=== PATIENT | male | born 1945 | race Caucasian/White ===

== ENCOUNTER 2024-05-14 09:30 | Outpatient (RCR) | payer OTHER, SELFPAY ==
[2024-01-16 09:23] VITALS: PULSE 85
== END 2024-05-14 23:59 | disposition home or self-care (01) ==
LOC: ANHCPREHAB 09:30
DX: J84.9 Interstitial pulmonary disease, unspecified (principal)
CPT/HCPCS: 94625; G0239

== ENCOUNTER 2024-05-18 10:37 | Outpatient (RCR) | payer OTHER, SELFPAY ==
[2024-05-16 00:02] VITALS: PULSE 85
== END 2024-08-17 08:28 | disposition home or self-care (01) ==
LOC: ANHCPREHAB 10:37
DX: J84.9 Interstitial pulmonary disease, unspecified (principal)
CPT/HCPCS: G0239

== ENCOUNTER 2025-03-31 12:35 | Outpatient (CLI) | payer OTHER, SELFPAY ==
--- NOTE | 2025-03-31 | ECHO_ITS ---
Patient Info Name: Perico Batista Age: 79 years : 1945 Gender: Male Ht: 70 in Wt: 212 lbs BSA: 2.20 m2 HR: 76 bpm BP: 114 / 66 mmHg Technical Quality: Good Exam Date: 03/31/2025 1:16 PM Patient Status: O Admit Date: 03/31/2025 Exam Type: CA echo doppler color flow Complete two-dimensional, color flow and Doppler transthoracic echocardiogram is performed. Election Assistant: Kami Wild Summary 1. Complete two-dimensional, color flow and Doppler transthoracic echocardiogram is performed. 2. There is normal biventricular size and systolic function. 3. There are no significant valvular abnormalities. Left Ventricle The left ventricle is normal in size and systolic function. The left ventricular ejection fraction is visually estimated to be 60-65%. Right Ventricle The right ventricle is normal in size and systolic function. Left Atria The left atrium is normal size. Right Atria The right atrium is normal size. Atrial Septum The atrial septum is not well visualized. Aortic Valve The aortic valve opens well. There is no aortic regurgitation. Pulmonic Valve The pulmonic valve is not well visualized. There is trace pulmonic valve regurgitation. Mitral Valve The mitral valve opens well. There is trace mitral regurgitation. Tricuspid Valve The tricuspid valve opens well. There is mild tricuspid regurgitation. Pericardium/Pleural Pericardium is normal in appearance with no evidence for significant pericardial effusion. Inferior Vena Cava Inferior vena cava is not well visualized. Aorta The aortic root at the level of the sinus of Valsalva measures 3.0 cm in diameter. Left Ventricular Outflow Tract Name Value Normal LVOT 2D LVOT Diameter 2.1 cm LVOT Doppler LVOT Peak Velocity 70 cm/s LVOT Peak Gradient 2 mmHg LVOT Mean Gradient 1 mmHg LVOT VTI 17 cm LVOT VTI/AV VTI Ratio 0.6 LVOT Stroke Volume 60 ml LVOT CO 10.9 l/min LVOT CI 5.0 l/min/m2 Pulmonic Valve Name Value Normal PV Doppler PV Peak Velocity 90 cm/s PV Peak Gradient 3 mmHg Mitral Valve Name Value Normal MV Diastolic Function MV E Peak Velocity 55 cm/s MV A Peak Velocity 71 cm/s MV E/A 0.8 MV Decel Time (PW) 231 ms MV Annular TDI MV E/e' (Septal) 6.7 MV E/e' (Lateral) 7.0 MV E/e' (Average) 6.9 Tricuspid Valve Name Value Normal TV Regurgitation Doppler TR Peak Velocity 266 cm/s TR Peak Gradient 28 mmHg Estimated PAP/RSVP RA Pressure 10 mmHg <=5 PA Systolic Pressure 38 mmHg <36 RV Systolic Pressure 38 mmHg <36 TV Annular TDI TV Lateral Sofía s' Velocity 11.3 cm/s >=9.5 Aortic Valve Name Value Normal AV Doppler AV Peak Velocity 126 cm/s AV Peak Gradient 6 mmHg AV Mean Gradient 4 mmHg AV VTI 30 cm AV Area (Cont Eq VTI) 2.0 cm2 >=3.0 AV Area (Cont Eq Juan) 2.0 cm2 AV DI (Juan) 0.56 AV Regurgitation 2D LVOT Area 3.6 cm2 Ventricles Name Value Normal LV Dimensions 2D/MM IVS Diastolic Thickness (2D) 1.2 cm 0.6-1.0 LVID Diastole (2D) 4.0 cm 4.2-5.8 LVIW Diastolic Thickness (2D) 1.1 cm 0.6-1.0 LVID Systole (2D) 2.9 cm 2.5-4.0 LVOT Diameter 2.1 cm LV Mass (2D Cubed) 154.84 g 88.00-224.00 LV Mass Index (2D Cubed) 70 g/m2 49-115 Relative Wall Thickness (2D) 0.55 <=0.42 LV Fractional Shortening/Ejection Fraction 2D/MM LV Fractional Shortening (2D) 28 % 25-43 LV EF (2D Teichholz) 55 % LV Diastolic Volume (4C MOD) 94 ml LV EF (4C MOD) 56 % LV Diastolic Volume (2C MOD) 101 ml LV EF (2C MOD) 67 % LV Diastolic Volume (BP MOD) 101 ml 62-150 LV Diastolic Volume Index (BP MOD) 46 ml/m2 34-74 LV Systolic Volume (BP MOD) 38 ml 21-61 LV Systolic Volume Index (BP MOD) 17 ml/m2 11-31 LV EF (BP MOD) 62 % 52-72 LV Diastolic Length (4C) 7.9 cm LV Systolic Length (4C) 6.7 cm LV Stroke Volume (4C MOD) 53 ml RV Dimensions 2D/MM RVID Diastole (2D) 4.0 cm 2.1-3.5 Atria Name Value Normal LA Dimensions LA Volume (4C A-L) 57 ml LA Volume (BP A-L) 55 ml RA Dimensions RA Systolic Major [place] Length (4C) 4.6 cm 2.1-2.7 RA Area (4C) 14.1 cm2 <=18.0 Report Signatures
--- OUTSIDE RECORDS SUMMARY | 2025-03-31 13:05 | XMS_ITS | Encounter Summary ---
Author Organization [facility] Address [address] [facility] [place] [address] Care Team Providers Care Incubator Operator Name Role Phone Scottie Williamson MD Primary Care Provider + Encounter Details Date Type Department Care Team (Late st Contact Info) Description 08/17/2019 Lab Requisition [facility] [address] [facility] [place] [id number] Kat Luna MD [address] [facility] [address] [place] [address] Social History Tobacco Use Types Packs/Day Years Used Date Smoking Tobacco: Former Cigarettes 1.5 37 1 11/22/1964 - 09/22/2002 Smokeless Tobacco: Never Alcohol Use Standard Drinks/Week Comments Yes 1.7 (1 standard drink = 0.6 oz p ure alcohol) occ Sex and Gender Information Value Date Recorded Sex Assigned at Not on file 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 Gender Identity Not on file Sexual Orientation Not on file documented as of this encounter Plan of Treatment Not on file documented as of this encounter Procedures Procedure Name Priority Date/Time Associated Diagnosis Comments DERMATOPATHOLOGY Routine 08/17/2019 12:0 0 AM CDT documented in this encounter Results * DERMATOPATHOLOGY (08/17/2019 12:00 AM CDT) Case Report Dermatopathology Report Case: [id number] Authorizing Provider: Kat Luna MD Collected: 08/17/2019 12:00 AM Ordering Location: [facility] Lab Received: 08/17/2019 12:06 PM Pathologist: Tammy Rivas MD Specimen: Skin, right denominational 12:48 PM CDT DERMATOPATHOLOGY LABORATORY Final Diagnosis Specimen A. SKIN, right denominational: BASAL CELL CARCINOMA, INFILTRATIVE PATTERN ([id number]) 12:48 PM CDT DERMATOPATHOLOGY LABORATORY at 1248 CDT Clinical History R/O BCC, irritated. 12:48 PM CDT DERMATOPATHOLOGY LABORATORY Gross Description Specimen A: Received is one formalin filled container labeled with the patient's name and designated right denominational. The specimen consists of a shave measuring [id number]. Jar 0. 12:48 PM CDT DERMATOPATHOLOGY LABORATORY Microscopic Description Specimen A. SKIN, right denominational: Within the dermis there are nodular aggregates of basaloid cells associated with fibromyxoid stroma and epithelial-stromal clefts. At the advancing margin of the neoplasm, there are smaller angulated nests that infiltrate the dermis. 12:48 PM CDT DERMATOPATHOLOGY LABORATORY Disclaimer An external and internal positive and negative controls are appropriate for the histochemical, immunohistochemical and immunofluorescence stain(s) in this case (if any), except where stated explicitly. The performance characteristics of the stain(s) cited in this report were developed and its performance characteristic determined by the Dermatopathology Laboratory at [facility], directed by Dr. Dolores Strange. These tests need not be, and therefore are not, approved by the [place] Food and Drug Administration. The tests are used for clinical purposes. Billing Codes Specimen Charges Stain Charges 13260 1 12:48 PM CDT DERMATOPATHOLOGY LABORATORY Embedded Images 12:48 PM CDT DERMATOPATHOLOGY LABORATORY Pathology/Cytolog y TISSUE SPECIMEN FROM SKIN / Unknown 08/17/2019 08/17/2019 12:06 PM CDT us Kat Luna MD LAB - PATHOLOGY/CYTOLOGY OR DERABLES Final Result DERMATOPATHOLOGY LABORATORY [facility] - Department of Dermatology [address] [facility] Floor Lab [address] [phone] documented in this encounter Visit Diagnoses Not on filedocumented in this encounter Care Teams Incubator Operator Relationship Specialty Start Date End Date Scottie Williamson MD [address] [phone] PCP - General Internal Medicine 09/22/13 documented as of this encounter
--- OUTSIDE RECORDS SUMMARY | 2025-03-31 13:05 | XMS_ITS | Encounter Summary ---
Author Organization [facility] Address [address] [place] [address] Phone Care Team Providers Care Media Relations Coordinator Name Role Phone Scottie Williamson MD Primary Care Provider Emily Blue MD Unavailable Kat Luna MD Unavailable [phone] Jose Diaz MD Unavailable [phone] Valente Torres MD Unavailable [phone] Heather Avila RN Unavailable Unavailable Thelma Brown MD Unavailable [phone] Encounter Details Date Type Department Care Team (Latest Contact Info) Description 12/09/2019 Orders Only [facility] Scanning, Provider Social History Tobacco Use Types Packs/Day Years Used Date Smoking Tobacco: Former Smokeless Tobacco: Never Sex and Gender Information Value Date Recorded Sex Assigned at Not on file 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 Gender Identity Not on file Sexual Orientation Straight 12/31/2019 9: 09 AM DIRECTOR COST documented as of this encounter Plan of Treatment Not on file documented as of this encounter Procedures Procedure Name Priority Date/Time Associated Diagnosis Comments SCAN - LABS 12/09/2019 documented in this encounter Results * SCAN - LABS (12/09/2019) us Provider Scanning Final Result documented in this encounter Visit Diagnoses Not on filedocumented in this encounter Additional Health Concerns Infection Onset Date Last Indicated Resolved Time COVID: Suspected 07/02/2024 07/02/2024 07/02/2024 12:21 PM CDT Rhino/Enterovirus 07/02/2024 07/02/2024 07/09/2024 3:05 AM CDT documented as of this encounter Care Teams Media Relations Coordinator Relationship Specialty Start Date End Date Scottie Williamson MD [address] [facility] [address] [place] [address] PCP - General Internal Medicine 03/03/19 Emily Blue MD [address] [place] [address] Fellow Pulmonary Disease 10/16/21 Kat Luna MD [address] [place] [address] Referring Physician Dermatology 10/16/21 Jose Diaz MD [address] [place] [address] Referring Physician Pulmonary Disease 10/16/21 Valente Torres MD [address] [facility] DEPT OTOLARYNGOLOGY, [address] [address] Referring Physician Otolaryngology 02/07/22 Heather Avila, RN Registered Nurse 05/02/22 02/03/25 Thelma Brown MD Medical Oncologist/Buttoner Medical Oncology 01/14/23 documented as of this encounter
--- OUTSIDE RECORDS SUMMARY | 2025-03-31 13:05 | XMS_ITS | Encounter Summary ---
Author Organization [facility] Address [address] [place] [address] Phone Care Team Providers Care Cath Laboratory Technician Name Role Phone Scottie Williamson MD Primary Care Provider Emily Blue MD Unavailable Kat Luna MD Unavailable [phone] Jose Diaz MD Unavailable [phone] Valente Torres MD Unavailable [phone] Heather Avila RN Unavailable Unavailable Thelma Brown MD Unavailable [phone] Encounter Details Date Type Department Care Team (Late st Contact Info) Description 07/17/2022 Orders Only [facility] [address] [facility] 11[address] [place] [address] [place] [address] Valente Torres MD [address] [place], [place] [id number] Thyroid nodule (Primary Dx) Social History Tobacco Use Types Packs/Day Years Used Date Smoking Tobacco: Former Cigarettes 1 44 1 963 - 2007 Smokeless Tobacco: Never AUDIT-C Answer Date Recorded Q1: How often do you have a drink containing alc ohol? Never 11/29/2021 Q2: How many drinks containi ng alcohol do you have on a typical day when you are drinking? 1 or 2 11/29/2021 Q3: How often do you have six or more drinks on one occasion? 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 Gender Identity Not on file Sexual Orientation Straight 12/31/2019 9: 09 AM PHOTOGRAPHIC PLATEMAKER documented as of this encounter Plan of Treatment Not on file documented as of this encounter Visit Diagnoses Diagnosis Thyroid nodule- Primary Nontoxic uninodular goiter documented in this encounter Additional Health Concerns Infection Onset Date Last Indicated Resolved Time COVID: Suspected 07/02/2024 07/02/2024 07/02/2024 12:21 PM CDT Rhino/Enterovirus 07/02/2024 07/02/2024 07/09/2024 3:05 AM CDT documented as of this encounter Care Teams Cath Laboratory Technician Relationship Specialty Start Date End Date Scottie Williamson MD [address] [address] PCP - General Internal Medicine 03/03/19 Emily Blue MD [address] [place] [address] Fellow Pulmonary Disease 10/16/21 Kat Luna MD [address] [place] [address] Referring Physician Dermatology 10/16/21 Jose Diaz MD [address] [place] [address] Referring Physician Pulmonary Disease 10/16/21 Valente Torres MD [address] [facility] DEPT OTOLARYNGOLOGY, [address] [address] Referring Physician Otolaryngology 02/07/22 Heather Avlia, RN Registered Nurse 05/02/22 02/03/25 Thelma Brown MD Medical Oncologist/Director Of Early Childhood Education Medical Oncology 01/14/23 documented as of this encounter
--- OUTSIDE RECORDS SUMMARY | 2025-03-31 13:05 | XMS_ITS | Referral Summary ---
Author Organization [facility] Address [address] [place] [address] Care Team Providers Care Licensed Psychologist Name Role Phone Scottie Williamson MD Primary Care Provider Emily Blue MD Unavailable [phone] Kat Luna MD Unavailable [phone] Jose Diaz MD Unavailable [phone] Valente Torres MD Unavailable Thelma Brown MD Unavailable Encounters Date Type Department Care Team Description 03/29/2025 Telephone [facility] Pulmonary [address] [facility] 8th [place] [address] [place] [address] Jane Garcias RN 03/29/2025 Results Follow-Up Pulmonology Jose Diaz MD CT Chest PE (CTA) and Chest High Resolution W Contrast 03/25/2025 3:15 PM CDT - 03/25/2025 11:59 PM CDT Hospital Encounter [facility] Radiology [facility]) [address] [place] [address] Jose Diaz MD ILD (interstitial lung disease) (HCC); NSIP (nonspecific interstitial pneumonia) (HCC); Shortness of breath Discharge Disposition: Discharge to home or self care 03/25/2025 2:44 PM CDT - 03/25/2025 11:59 PM CDT Hospital Encounter [facility] Pul[facility] [address] [facility] [address] [place] [address] ILD (interstitial lung disease) (HCC); NSIP (nonspecific interstitial pneumonia) (HCC); Shortness of breath Discharge Disposition: Discharge to home or self care 03/24/2025 Telephone [facility] Pul[facility] [address] [facility] 8th [place] [address] [place] [address] Jane Garcias RN 03/01/2025 Telephone [facility] [address] [facility] 8th [place] [address] [place] [address] Huyen Crooks CMA 02/28/2025 9:00 AM CDT Procedure visit [facility] Otolaryngology [address] [place] [phone] Christina Romna Au.D. Sensorineural hearing loss (SNHL), bilateral (Primary Dx) 02/28/2025 8:30 AM CDT Procedure visit [facility] Otolaryngology [address] [place] [phone] Christina Roman Au.D. Sensorineural hearing loss (SNHL), bilateral (Primary Dx) 02/24/2025 Telephone [facility] [address] [place] [address] [place] [address] Jane Garcias RN 02/03/2025 9:15 AM CDT Lab [facility] - Lab Collection [address] [place] [address] 6 [place] [address] Extranodal marginal zone B-cell lymphoma 02/03/2025 10:00 AM CDT Office Visit [facility] Oncology [address] [facility] Floor 6 [place] [address] Marian Messina NP Extranodal marginal zone B-cell lymphoma (Primary Dx) 01/21/2025 Telephone [facility] Pulmonary [address] [facility] 8th [place] [address] [place] [address] Huyen Crooks CMA 01/21/2025 9:45 AM CDT Office Visit [facility] [address] [facility] [address]th [place] [address] [place] [address] Robby Ontiveros MD ILD (interstitial lung disease) (HCC) (Primary Dx); High risk medication use; Physical deconditioning 01/21/2025 8:50 AM CDT - 01/21/2025 11:59 PM CDT Hospital Encounter [facility] [address] [facility] [address] [place] [address] ILD (interstitial lung disease) (HCC); NSIP (nonspecific interstitial pneumonia) (HCC); Gastroesophageal reflux disease without esophagitis; Acute cough Discharge Disposition: Discharge to home or self care 01/07/2025 Telephone [facility] [address] [facility] 8th [place] [address] [place] [address] Jane Garcias RN R/S Appt 01/03/2025 10:15 AM CDT Lab [facility] - Lab Collection [address] [place] [address] Floor 6 [place] [address] 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) 01/03/2025 10:00 AM CDT Lab [facility] Lab [address] [place] [address] Floor 6 [place] [address] 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) 01/03/2025 11:00 AM CDT Office Visit [facility] On[facility] [address] [place] [address] Floor 6 [place] [address] Curly Panda MD 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) 01/03/2025 9:00 AM CDT - 01/03/2025 11:59 PM CDT Hospital Encounter [facility] - CT [address] [facility] [address] [place] [address] 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) Discharge Disposition: Discharge to home or self care 01/03/2025 8:45 AM CDT - 01/03/2025 11:59 PM CDT Hospital Encounter [facility] - CT [address] [facility] [address] [place] [address] 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) Discharge Disposition: Discharge to home or self care from Last 3 Months Allergies No known active allergies Medications multivitamin (MULTIPLE VITAMINS DAILY ORAL) Take 1 tablet by mouth every morning Active aspirin 81 mg enteric coated tablet Take 1 tablet (81 mg total) by mouth every morning 30 tablet 11 2 Active NIFEdipine CC 60 mg 24 hr tablet Take 30 mg by mouth 2 (two) times a day 2 Active famotidine (PEPCID) 20 mg tablet TAKE 1 TABLET BY MOUTH TWICE A DAY 180 tablet 3 4 Active predniSONE (DELTASONE) 5 mg tablet Take 1 tablet (5 mg) by mouth daily 90 tablet 3 4 Active meloxicam (MOBIC) 15 mg tablet Take 1 tablet (15 mg total) by mouth daily 5 Active respiratory syncytial virus vaccine (Arexvy, PF,) 120 mcg/0.5 mL vaccine Inject 0.5 mL into the muscle as instructed 5 Active Active Problems Problem Noted Date Diagnosed Date 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 Immunocompromised 03/01/2022 Anemia 12/25/2021 Chronic pain 11/30/2021 Assessment & Plan (11/30/2021 7:35 AM PERSONNEL ANALYST): - takes oxy at home - pain following to help with acute pain issues Nausea 11/30/2021 Assessment & Plan (12/03/2021 7:22 AM PERSONNEL ANALYST): - improved - 2/6 KUB consistent w post op ileus, now resolved - prn antiemetics - scheduled miralax - protonix BID - azathiopine IV - maalox - continue POPM - OOB - advance diet to regular Lung mass 11/29/2021 Mass of lower lobe of left lung 11/08/2021 Assessment & Plan (12/03/2021 7:21 AM PERSONNEL ANALYST): Left thoracotomy, lysis of adhesions, and left lower lobe diagnostic wedge resection - chest tubes all out - pain control with POPM - OOB with PT Consolidation of left lower lobe of lung 021 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 Overview (10/12/2021): Added automatically from request for surgery [id number] Raynaud's disease 10/12/2021 Benign paroxysmal positional vertigo 10/12/2021 High risk medication use 10/09/2020 Basal cell carcinoma (BCC) of right advent regio n 09/08/2019 NSIP (nonspecific interstitial pneumonia) 2018 SOB (shortness of breath) 08/27/2019 Other fatigue 08/27/2019 Encounter for removal of sutures 03/31/2019 Stopped smoking with greater than 40 pack year h istory 08/18/2018 Pleural effusion 08/18/2018 Gastroesophageal reflux disease without esophagi tis 08/18/2018 Atherosclerosis of aorta 06/01/2017 Skin neoplasm 07/20/2015 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 - sees pulmonary medicince - on room air now - resume home medications as indicated Immunizations Immunization Administration Dates Next Due COVID-19 MRNA (Playroom) .25 ML (25 MCG) VACCINE (6 MOS- 11 YRS) 01/07/2024 COVID-19 mRNA (3Touch) 0.3 m L (30 mcg) vaccine (12 years and up) 08/27/2024,07/26/2023 Influenza, Quadrivalent, Hig h Dose, Preservative Free, Intrr 07/31/2021,07/10/2021,06/16/2020 Influenza, Quadrivalent, Rec ombinant, Egg Free, Preservative Free, Intramuscular 07/10/2023 Influenza, Quadrivalent, Spl it, Intramuscular 08/08/2017 Influenza, Trivalent, Adjuva nted, Intramuscular 08/27/2024 Influenza, Trivalent, High D ose, Split, Preservative Free, Intramuscular 07/11/2020,08/19/2019,08/13/2018,06/29,06/28/2018 Influenza, Trivalent, IM (MDV) 08/03/2014,2011,10/29/2006 Influenza, Unspecified 08/27/2024,2020,06/16/2020,08/19,08/13/2018,06/29/2018,08/02/2016 ,08/15/2015,07/14/2013,07/25/2011 Pfizer SARS-CoV-2 Monovalent Vaccination (12+ Yrs) PURPLE 12/25/2021,12/19/2020,11/24/2020 Pneumococcal Conjugate PCV 13 05/23/2017 Pneumococcal Polysaccharide PPV23 07/14/2013 RSV Vaccine, Pref, Recombina nt, Subunit, Adjuvanted, PF, IM (Arexvy) 09/26/2024 Tdap 07/25/2011 ZOSTER LIVE 04/13/2012 ZOSTER Recombinant 08/31/2018,06/23/2018 Zoster, unspecified 06/23/2018 Social History Tobacco Use Types Packs/Day Years Used Date Smoking Tobacco: Former Cigarettes 1 44 1 963 - 2007 Smokeless Tobacco: Never Tobacco Cessation:Counseling Given: Not Answered AUDIT-C Answer Date Recorded Q1: How often [...] on file Legal Sex Male 12:18 AM PERSONNEL ANALYST Gender Identity Not on file Sexual Orientation Straight 12/31/2019 9: 09 AM PERSONNEL ANALYST Last Filed Vital Signs Vital Sign Reading Time Taken Comments Blood Pressure 110/69 02/03/2025 9:38 AM CDT Pulse 85 02/03/2025 9:38 AM CDT Temperature 36.6 C (97.8 F) 02/03/2025 9:38 AM CDT Respiratory Rate 18 02/03/2025 9:38 AM CDT Oxygen Saturation 95% 02/03/2025 9:38 AM CDT Inhaled Oxygen Concentration - - Weight 94.9 kg (209 lb 3.2 oz) 02/03/2025 9:38 A M CDT Height 176.5 cm (5' 9.5) 01/21/2025 9:21 AM CDT Body Mass Index 30.45 01/21/2025 9:21 AM CDT Plan of Treatment Not on file Procedures Procedure Name Priority Date/Time Associated Diagnosis Comments CT CHEST PE AND CHEST HIGH RESOLUTION W CONTRAST Routine 03/25/2025 4:12 PM CDT ILD (interstitial lung disease) (HCC) NSIP (nonspecific interstitial pneumonia) (HCC) Shortness of breath PULMONARY FUNCTION TEST (PFT) Routine 03/25/2025 3:12 PM CDT ILD (interstitial lung disease) (HCC) NSIP (nonspecific interstitial pneumonia) (HCC) Shortness of breath EGFR Routine 02/03/2025 9:15 AM CDT Extranodal marginal zone B-cell lymphoma DIFFERENTIAL AUTO Routine 02/03/2025 9:1 5 AM CDT Extranodal marginal zone B-cell lymphoma IGG Routine 02/03/2025 9:15 AM CDT Extranodal marginal zone B-cell lymphoma IGA Routine 02/03/2025 9:15 AM CDT Extranodal marginal zone B-cell lymphoma IGM Routine 02/03/2025 9:15 AM CDT Extranodal marginal zone B-cell lymphoma PROTEIN ELECTROPHORESIS, WITH REFLEX, SERUM Routine 02/03/2025 9:15 AM CDT Extranodal marginal zone B-cell lymphoma CBC WITH AUTO DIFFERENTIAL Routine 02/03/2025 9:15 AM CDT Extranodal marginal zone B-cell lymphoma COMPREHENSIVE METABOLIC PANEL Routine 02/03/2025 9:15 AM CDT Extranodal marginal zone B-cell lymphoma LACTATE DEHYDROGENASE Routine 02/03/2025 9:15 AM CDT Extranodal marginal zone B-cell lymphoma PULMONARY FUNCTION TEST (PFT) Routine 01/21/2025 9:15 AM CDT ILD (interstitial lung disease) (HCC) NSIP (nonspecific interstitial pneumonia) (HCC) Gastroesophageal reflux disease without esophagitis Acute cough EGFR Routine 01/03/2025 9:49 AM CDT 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) DIFFERENTIAL AUTO Routine 01/03/2025 9:4 9 AM CDT 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) CBC WITH AUTO DIFFERENTIAL Routine 01/03/2025 9:49 AM CDT 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) COMPREHENSIVE METABOLIC PANEL Routine 01/03/2025 9:49 AM CDT 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) LACTATE DEHYDROGENASE Routine 01/03/2025 9:49 AM CDT 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) CT SOFT TISSUE NECK W CONTRAST Schedule Routine, Read Routine (OP Routine) 01/03/2025 9:25 AM CDT 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 No pulmonary embolism. 2. Stable findings of interstitial lung disease in a nonspecific interstitial pneumonia pattern. Dictated by: Alex Bundy MD The radiology attending physician has personally reviewed this study, and had reviewed and/or edited this written report and agrees with it. Electronically signed by: Eugene Soler M.D. 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 TECHNIQUE: Computed tomographic images were acquired using a chest angiographic protocol optimized for pulmonary embolism. Contrast enhanced transaxial images were obtained following the intravenous administration of 93 ml of nonionic contrast. Multiplanar reformatted images and three-dimensional images were obtained on the 3-D workstation and sent to the PACS archival system. COMPARISON: 01/03/2025 and 06/21/2023 FINDINGS: No axillary, supraclavicular lymphadenopathy. There are multiple mediastinal lymph nodes appear unchanged and are within normal limits for size. For example a 8 mm low right paratracheal lymph node. Normal heart size. Small pericardial effusion. Normal caliber thoracic aorta and main pulmonary artery. Coronary artery calcifications. There is decreased amount of mucus in the left mainstem bronchus. There is a staple line from prior left lower lobe wedge resection. No significant change in lower lung peripheral and basilar predominant groundglass, mild reticulation, and minimal bronchiectasis. There is no significant air trapping. No suspicious pulmonary nodules. No pleural effusion or pneumothorax. Unremarkable appearance of the imaged portions of the liver, gallbladder, pancreas, spleen, bilateral adrenal glands, small and large bowel. Multiple old left posterior rib fracture deformities. Old left clavicle fracture. No suspicious osseous lesions. 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 TECHNIQUE: Computed tomographic images were acquired using a chest angiographic protocol optimized for pulmonary embolism. Contrast enhanced transaxial images were obtained following the intravenous administration of 93 ml of nonionic contrast. Multiplanar reformatted images and three-dimensional images were obtained on the 3-D workstation and sent to the PACS archival system. COMPARISON: 01/03/2025 and 06/21/2023 FINDINGS: No axillary, supraclavicular lymphadenopathy. There are multiple mediastinal lymph nodes appear unchanged and are within normal limits for size. For example a 8 mm low right paratracheal lymph node. Normal heart size. Small pericardial effusion. Normal caliber thoracic aorta and main pulmonary artery. Coronary artery calcifications. There is decreased amount of mucus in the left mainstem bronchus. There is a staple line from prior left lower lobe wedge resection. No significant change in lower lung peripheral and basilar predominant groundglass, mild reticulation, and minimal bronchiectasis. There is no significant air trapping. No suspicious pulmonary nodules. No pleural effusion or pneumothorax. Unremarkable appearance of the imaged portions of the liver, gallbladder, pancreas, spleen, bilateral adrenal glands, small and large bowel. Multiple old left posterior rib fracture deformities. Old left clavicle fracture. No suspicious osseous lesions. IMPRESSION: 1. No pulmonary embolism. 2. Stable findings of interstitial lung disease in a nonspecific interstitial pneumonia pattern. Dictated by: Alex Bundy MD The radiology attending physician has personally reviewed this study, and had reviewed and/or edited this written report and agrees with it. Electronically signed by: Eugene Soler M.D. Jose Diaz MD [facility] [place] PROCEDURES Final Result * Pulmonary Function Test - (03/25/2025 3:12 PM CDT) FVC PRE 2.43 L [facility] FVC %PRE PRED 64 % [facility] FEV1 PRE 1.86 L [facility] FEV1 %PRE PRED 66 % [facility] FEV1/FVC PRE 76.5 % [facility] Anatomical Region Laterality Modality PFT 03/25/2025 2:57 PM CDT Narrative 03/28/2025 9:19 AM CDT Table formatting from the original result was not included. [facility] Division of Pulmonary & Critical Care Medicine [address] [place] [address]; [place] [address]; [place] [address]; [phone] Pulmonary Function Laboratory Pulmonary Stress Test Simple/Oxygen Assessment Patient: Perico Batista Date: 03/25/2025 : 1945 Ht: 69.5 IN Wt: 211 LBS Time (min) Distance (ft)/ Corley O2 L/M SpO2 HR Elisabeth* BP FEV1 % Pred Rest: RA 99 97 0 136/68 1.86 66 % Walk/Bike: 1 RA 99 110 0 2 RA 94 113 2 3 RA 93 117 2 4 RA 92 121 2 5 RA 91 122 2 6 min 0 sec RA 90 121 2 Recovery: 1 RA 98 114 0 145/69 1.92 69% 3 RA 97 110 0 *Elisabeth rate of perceived exertion (1-10 dyspnea scale) Ayo, CHEST 2003; 123:1408 Walk Test Summary: Six Minute Walk Distance: 1350 ft Six-minute Walk Work [distance (m) x body wt (kg)]: 12900 kg.m (normal >60,000kg.m) Oxygen required to maintain SpO2 greater than 90% during six minutes of walkin L/M Comments: Interpretation: Breathing room air, SpO2 is normal at rest and during exercise sufficient to increase pulse, SpO2 falls but remains normoxemic . On this basis, SpO2 is adequate at rest breathing room air and while walking breathing room air. This level of exercise is associated with no significant change of FEV1. By signing this report, the attending pulmonary physician certifies that he/she has personally reviewed and interpreted the graphic and numerical data associated with this pulmonary function study and has reviewed and /or edited a preliminary draft report and agrees with the written final report. PFT performed at:[place] [place] [facility]- [id number] Procedure:->Oxygen Assessment Titration Pulmonary Function Test Interpretation SPIROMETRY: The FEV1 and FVC are reduced in a pattern suggestive of a restrictive abnormality. The inspiratory loop is appropriate for the expiratory flow abnormality. Impression: There is a moderate restrictive ventilatory defect. However, measurement of lung volumes is suggested to confirm this if clinically indicated. Compared with most recent study, there has been no significant interval change. The attending pulmonary physician certifies a physician presence in the [facility] Suite during the administration of aerosolized bronchodilator. The attending pulmonary physician certifies that he/she has reviewed and interpreted the graphic and numerical data of this pulmonary function study and agrees with the written final report. The lower limit of normal for PaO2 and %HbO2 is age dependent. However, the [facility] Function Laboratory defines hypoxemia as a PaO2 <56 mm Hg or a %HbO2 <89%. Starting on October of 2024 the [facility] Pul[facility] Function Laboratory utilizes race neutral GLI Global normative equations. Jose Diaz MD PFT ORDERABLES Final Result * eGFR (02/03/2025 9:15 AM CDT) eGFR 74 >=60 mL/min/1. 73 m2 Comment: Interpretive Data Reference Interval Normal >/= 90 mL/min/1.73m2 Mildly decreased* 60 - 89 mL/min/1.73m2 Mildly to moderately decreased 45 - 59 mL/min/1.73m2 Moderately to severely decreased 30 - 44 mL/min/1.73m2 Severely decreased 15 - 29 mL/min/1.73m2 Kidney Failure < 15 mL/min/1.73m2 *Relative to young adult level Estimated glomerular filtration rate is determined by the 2020 CKD-EPI equation recommended by the National Kidney Foundation (A Unifying Approach to GFR Estimation: Recommendations of the NKF-ASK Task Force on Reassessing the Inclusion of Race in Diagnosing Kidney Disease, JASN 2020). The CKD-EPI equation should not be used for patients with unstable renal function and has not been validated in children and those over 70. Current interpretive data was last reviewed 2021. Blood 02/03/2025 9:15 AM CDT 02/03/2025 9:35 AM CDT Thelma Brown MD LAB BLOOD ORDERABLES Final Re sult [facility] Department [place] [address] * (ABNORMAL) Differential, auto (02/03/2025 9:15 AM CDT) Neutrophil abs 5.88 1.50 - 6.50 K/cumm Comment:Testing performed by : [facility]e [facility], [address] [place] [phone] Lymphocyte abs 1.37 0.80 - 3.30 K/cumm [facility] Comment:Testing performed by : [facility], [address] [place] [phone] Monocyte abs 1.22(H) 0.20 - 0.80 K/cumm [facility] Comment:Testing performed by : [facility], [address] [place] [phone] Eosinophil abs 0.14 0.00 - 0.50 K/cumm [facility] Comment:Testing performed by : [facility], [address] [place] [phone] Basophil abs 0.06 0.00 - 0.10 K/cumm [facility] Comment:Testing performed by : [facility], [address] [place] [phone] Neutrophil pct 67.9 % [facility] Comment: Interpretive Data Percent cell count reference ranges are not reported, since discordance with absolute values may lead to misinterpretation of CBC data. Current Interpretive Data was last revised on 2018. Testing performed by: [facility], [address] [place] [phone] Lymphocyte pct 15.8 % [facility] Comment: Interpretive Data Percent cell count reference ranges are not reported, since discordance with absolute values may lead to misinterpretation of CBC data. Current Interpretive Data was last revised on 2018. Testing performed by: [facility], [address] [place] [phone] Monocyte pct 14.0 % [facility] Comment: Interpretive Data Percent cell count reference ranges are not reported, since discordance with absolute values may lead to misinterpretation of CBC data. Current Interpretive Data was last revised on 2018. Testing performed by: [facility], [address] [place], [place] [phone] Eosinophil pct 1.7 % [facility] Comment: Interpretive Data Percent cell count reference ranges are not reported, since discordance with absolute values may lead to misinterpretation of CBC data. Current Interpretive Data was last revised on 2018. Testing performed by: [facility], [address] [place], [place] [phone] Basophil pct 0.7 % [facility] Comment: Interpretive Data Percent cell count reference ranges are not reported, since discordance with absolute values may lead to misinterpretation of CBC data. Current Interpretive Data was last revised on 2018. Testing performed by: [facility], [address] [place] [address] Blood 02/03/2025 9:15 AM CDT 02/03/2025 9:30 AM CDT us Thelma Brown MD LAB BLOOD ORDERABLES Final Re sult [facility] Department [place] [address] * CBC with auto differential (02/03/2025 9:15 AM CDT) WBC 8.66 3.80 - 9.90 K/cumm Comment:Testing performed by : [facility], [address] [place] [address] Hgb 15.2 13.0 - 17.5 g/dL [facility]IA [facility] Comment:Testing performed by : [facility], [address] [place] [address] Hct 45.4 38.9 - 50.3 % EUGENIA LOCK Comment:Testing performed by : [facility], [address] [place] [address] Plt 302 150 - 400 K/cumm EUGENIA LOCK Comment:Testing performed by : [facility], [address] [place], [place] [phone] MPV 7.6 6.8 - 10.4 fL EUGENIA LOCK Comment:Testing performed by : [facility], [address] [place], [place] [phone] RBC 4.99 4.30 - 5.80 M/cumm EUGENIA [facility]OCK Comment:Testing performed by : [facility], [address] [place], [place] [phone] MCV 90.9 81.3 - 96.4 fL [facility] Comment:Testing performed by : [facility], [address] [place], [place] [id number] MCH 30.5 27.1 - 33.3 pg [facility] Comment:Testing performed by : [facility], [address] [place], [place] [id number] MCHC 33.6 32.3 - 35.7 g/dL [facility] Comment:Testing performed by : [facility], [address] [place] [address] RDW CV 14.3 11.1 - 14.9 % [facility] Comment:Testing performed by : [facility], [address] [place] [address] NRBC abs 0.00 0.00 - 0.01 K/cumm [facility] Comment:Testing performed by : [facility], [address] [place] [address] Blood 02/03/2025 9:15 AM CDT 02/03/2025 9:30 AM CDT us Thelma Brown MD LAB BLOOD ORDERABLES Final Re sult [facility] Department [place] [address] * (ABNORMAL) Protein electrophoresis with reflex, serum with interpretation (02/03/2025 9:15 AM CDT) Pathologist [facility] [place] Protein, sr 7.2 6.2 - 8.2 g/dL Albumin 4.1 3.2 - 5.0 g/dL [facility] Alpha-1 globulin 0.3 0.2 - 0.4 g/dL [facility] Alpha-2 globulin 0.7 0.5 - 1.0 g/dL [facility] Beta-1 globulin 0.5 0.3 - 0.6 g/dL [facility] Beta-2 globulin 0.4 0.2 - 0.6 g/dL [facility] Gamma globulin 1.2 0.5 - 1.7 g/dL [facility] Rstr Pk Gamma 0.3(H) 0.0 - 0.0 g/dL [facility] SPEP interp Please see comment [facility] Comment: Abnormal restricted peak in Gamma region Electrophoretic pattern appears similar to previous sample 01/30/2024 Reviewed and signed by Chase Mason MD, PhD 02/04/2025 Blood 02/03/2025 9:15 AM CDT 02/03/2025 10:35 AM CDT Thelma Brown MD LAB BLOOD ORDERABLES Final Re sult Performing Organization Address City/[facility]/ZIP Co de Phone Number [facility] [place] [address] * Lactate dehydrogenase (LD) (02/03/2025 9:15 AM CDT) [facility] Lactate dehydrogenase (LDH) 149 100 - 250 Units/L Blood 02/03/2025 9:15 AM CDT 02/03/2025 9:35 AM CDT Thelma Brown MD LAB BLOOD ORDERABLES Final Re sult [facility] [place] [address] * IgA (02/03/2025 9:15 AM CDT) [facility] Immunoglobulin A 270 70 - 400 mg/dL Blood 02/03/2025 9:15 AM CDT 02/03/2025 9:51 AM CDT Thelma Brown MD LAB BLOOD ORDERABLES Final Re sult Performing Organization Address [facility] Co de Phone Number [facility] [place] [address] * (ABNORMAL) IgM (02/03/2025 9:15 AM CDT) Pathologist [facility] Immunoglobulin M 314(H) 40 - 230 mg/dL Blood 02/03/2025 9:15 AM CDT 02/03/2025 9:51 AM CDT Thelma Brown MD LAB BLOOD ORDERABLES Final Re sult Performing Organization Address [facility] de Phone Number [facility] Department [place] [address] * IgG (02/03/2025 9:15 AM CDT) [facility] Immunoglobulin G 1,213 700 - 1,600 mg/dL Blood 02/03/2025 9:15 AM CDT 02/03/2025 9:51 AM CDT Thelma Brown MD LAB BLOOD ORDERABLES Final Re sult Performing Organization Address [facility] de Phone Number [facility] [place] [address] * Comprehensive metabolic panel (02/03/2025 9:15 AM CDT) [facility] Sodium 142 135 - 145 mmol/L Potassium, pl 4.4 3.3 - 4.9 mmol/L [facility] Chloride 104 97 - 110 mmol/L [facility] CO2 30 22 - 32 mmol/L [facility] Anion gap 8 2 - 15 mmol/L [facility] BUN 16 6 - 25 mg/dL [facility] Creatinine 1.03 0.80 - 1.30 mg/dL [facility] Glucose 95 70 - 199 mg/dL [facility] Comment: Interpretive Data Fasting glucose >/= 126 mg/dl is diagnostic for diabetes. Fasting is defined as no caloric intake for at least 8 hours. Fasting glucose between 100 mg/dl to 125 mg/dl is diagnostic of prediabetes. In a patient with classic symptoms of hyperglycemia or hyperglycemic crisis, a random glucose >/= 200 mg/dl is diagnostic for diabetes. In the absence of unequivocal hyperglycemia, results should be confirmed by repeat testing. The classification and Diagnosis of Diabetes Diabetes Care 202; 46: S19-S40. Current interpretive data was last revised 2022. Calcium 9.6 8.5 - 10.3 mg/dL [facility] Bilirubin, total 0.5 0.1 - 1.2 mg/dL [facility] Protein, pl 7.6 6.5 - 8.5 g/dL [facility] Albumin 4.1 3.5 - 5.0 g/dL [facility] Alk phos 71 40 - 130 Units/L [facility] ALT 13 7 - 55 Units/L [facility] AST 21 10 - 50 Units/L [facility] Blood 02/03/2025 9:15 AM CDT 02/03/2025 9:35 AM CDT Thelma Brown MD LAB BLOOD ORDERABLES Final Re sult [facility] Department [place] [address] * Pulmonary Function Test - (01/21/2025 9:15 AM CDT) FVC PRE 2.[address] [facility] FVC %PRE PRED 63 % [facility] FEV1 PRE 1.[address] [facility] FEV1 %PRE PRED 65 % [facility] FEV1/FVC PRE 76.0 % [facility] Anatomical Region Laterality Modality PFT 01/21/2025 8:59 AM CDT Narrative 01/21/2025 11:12 AM CDT Table formatting from the original result was not included. [facility] Division of Pulmonary & Critical Care Medicine [address] [place] [address]; [place] [address]; [place] [address]; [phone] Pulmonary Function Laboratory Pulmonary Stress Test Simple/Oxygen Assessment Patient: Perico Batista Date: 01/21/2025 : 1945 Ht: 69.5 IN Wt: 213 LBS Time (min) Distance (ft)/ Corley O2 L/M SpO2 HR Elisabeth* BP FEV1 % Pred Rest: RA 96 90 1 101/63 1.83 65% Walk/Bike: 1 RA 92 107 2 2 RA 94 101 2 3 RA 94 107 2 4 RA 94 112 2 5 RA 91 116 2 6 min 0 sec RA 92 113 2 Recovery: 1 RA 98 103 0.5 124/62 1.91 68% 3 RA 99 98 0 *Elisabeth rate of perceived exertion (1-10 dyspnea scale) Ayo, CHEST 2003; 123:1408 Walk Test Summary: Six Minute Walk Distance: 1200 ft Six-minute Walk Work [distance (m) x body wt (kg)]: 00352 kg.m (normal >60,000kg.m) Oxygen required to maintain SpO2 greater than 90% during six minutes of walkin L/M Comments: Interpretation: Breathing room air, SpO2 is normal at rest. During exercise sufficient to increase pulse, SpO2 falls but remains normoxemic. On this basis, SpO2 is adequate at rest breathing room air and while walking breathing room air. This level of exercise is associated with no significant change of FEV1. Darryl Meraz MD By signing this report, the attending pulmonary physician certifies that he has personally reviewed and interpreted the graphic and numerical data associated with this pulmonary function study and has reviewed and /or edited a preliminary draft report and agrees with the written final report. PFT performed at:->[facility] [facility]FT [facility]- [id number]-8[facility] Procedure:->Spirometry Procedure:->Oxygen Assessment Titration Pulmonary Function Test Interpretation SPIROMETRY: The FEV1 to FVC ratio is normal. The FEV1 and FVC are reduced in a pattern suggestive of a restrictive abnormality. The inspiratory loop is appropriate for the expiratory flow abnormality. PULSE OXIMETRY: See Oxygen Assessment/Cardiopulmonary Exercise Study-Simple Impression: There is a moderate restrictive ventilatory defect. However, measurement of lung volumes is suggested to confirm this if clinically indicated. Compared with most recent study, there has been no significant interval change. Darryl Meraz MD The attending pulmonary physician certifies a physician presence in the [facility] during the administration of aerosolized bronchodilator. The attending pulmonary physician certifies that he has reviewed and interpreted the graphic and numerical data of this pulmonary function study and agrees with the written final report. The lower limit of normal for PaO2 and %HbO2 is age dependent. However, the [facility] Pulmonary Function Laboratory defines hypoxemia as a PaO2 <56 mm Hg or a %HbO2 <89%. Starting on October of 2024 the [facility] Pulmonary Function Laboratory utilizes race neutral GLI Global normative equations. Jose Diaz MD PFT ORDERABLES Final Result * eGFR (01/03/2025 9:49 AM CDT) eGFR 79 >=60 mL/min/1. 73 m2 Comment: Interpretive Data Reference Interval Normal >/= 90 mL/min/1.73m2 Mildly decreased* 60 - 89 mL/min/1.73m2 Mildly to moderately decreased 45 - 59 mL/min/1.73m2 Moderately to severely decreased 30 - 44 mL/min/1.73m2 Severely decreased 15 - 29 mL/min/1.73m2 Kidney Failure < 15 mL/min/1.73m2 *Relative to young adult level Estimated glomerular filtration rate is determined by the 2020 CKD-EPI equation recommended by the National Kid[employer] (A Unifying Approach to GFR Estimation: Recommendations of the NKF-ASK Task Force on Reassessing the Inclusion of Race in Diagnosing Kidney Disease, JASN 2020). The CKD-EPI equation should not be used for patients with unstable renal function and has not been validated in children and those over 70. Current interpretive data was last reviewed 2021. Blood 01/03/2025 9:49 AM CDT 01/03/2025 9:56 AM CDT Curly Panda MD LAB BLOOD ORDERABLES Final Res ult [facility]GENIA [facility] Department [place] [address] * (ABNORMAL) Differential, auto (01/03/2025 9:49 AM CDT) Neutrophil abs 5.6 1.5 - 6.5 K/cumm Comment:Testing performed by : [facility], [address] [place] [phone] Lymphocyte abs 1.2 0.8 - 3.3 K/cumm [facility] Comment:Testing performed by : [facility], [address] [place] [phone] Monocyte abs 1.1(H) 0.2 - 0.8 K/cumm [facility] Comment:Testing performed by : [facility], [address] [place] [phone] Eosinophil abs 0.2 0.0 - 0.5 K/cumm [facility] Comment:Testing performed by : [facility], [address] [place] [phone] Basophil abs 0.0 0.0 - 0.1 K/cumm [facility] Comment:Testing performed by : [facility], [address] [place] [phone] Neutrophil pct 68.9 % [facility] Comment: Interpretive Data Percent cell count reference ranges are not reported, since discordance with absolute values may lead to misinterpretation of CBC data. Current Interpretive Data was last revised on 2018. Testing performed by: [facility], [address] [place] [phone] Lymphocyte pct 14.4 % [facility] Comment: Interpretive Data Percent cell count reference ranges are not reported, since discordance with absolute values may lead to misinterpretation of CBC data. Current Interpretive Data was last revised on 2018. Testing performed by: [facility], [address] [place] [phone] Monocyte pct 14.1 % [facility] Comment: Interpretive Data Percent cell count reference ranges are not reported, since discordance with absolute values may lead to misinterpretation of CBC data. Current Interpretive Data was last revised on 2018. Testing performed by: [facility], [address] [place] [address] Eosinophil pct 2.0 % EUGENIA JIMENES Comment: Interpretive Data Percent cell count reference ranges are not reported, since discordance with absolute values may lead to misinterpretation of CBC data. Current Interpretive Data was last revised on 2018. Testing performed by: [facility], [address] [place] [address] Basophil pct 0.6 % EUGENIA JIMENES Comment: Interpretive Data Percent cell count reference ranges are not reported, since discordance with absolute values may lead to misinterpretation of CBC data. Current Interpretive Data was last revised on 2018. Testing performed by: [facility], [address] [place] [address] Blood 01/03/2025 9:49 AM CDT 01/03/2025 9:53 AM CDT us Curly Panda MD LAB BLOOD ORDERABLES Final Res ult [facility]GENIA JIM[facility] Department [place] [address] * CBC with auto differential (01/03/2025 9:49 AM CDT) WBC 8.1 3.8 - 9.9 K/cumm Comment:Testing performed by : [facility], [address] [place] [address] Hgb 14.0 13.0 - 17.5 g/dL EUGENIA JIMENES Comment:Testing performed by : [facility], [address] [place] [address] Hct 42.2 38.9 - 50.3 % EUGENIA JIMENES Comment:Testing performed by : [facility], [address] [place] [address] Plt 278 150 - 400 K/cumm EUGENIA LOCK Comment:Testing performed by : [facility], [address] [place], [place] [phone] MPV 7.4 6.8 - 10.4 fL [facility]IA [facility]OCK Comment:Testing performed by : [facility], [address] [place] [address] RBC 4.63 4.30 - 5.80 M/cumm EUGENIA [facility]OCK Comment:Testing performed by : [facility], [address] [place], [place] [phone] MCV 91.1 81.3 - 96.4 fL [facility] Comment:Testing performed by : [facility], [address] [place], [place] [phone] MCH 30.1 27.1 - 33.3 pg EUGENIA LOCK Comment:Testing performed by : [facility], [address] [place], [place] [phone] MCHC 33.1 32.3 - 35.7 g/dL [facility]IA [facility] Comment:Testing performed by : [facility], [address] [place] [address] RDW CV 14.2 11.1 - 14.9 % [facility] Comment:Testing performed by : [facility], [address] [place] [address] NRBC abs 0.00 0.00 - 0.01 K/cumm [facility] Comment:Testing performed by : [facility], [address] [place] [address] Blood 01/03/2025 9:49 AM CDT 01/03/2025 9:53 AM CDT us Curly Panda MD LAB BLOOD ORDERABLES Final Res ult [facility] Department [place] [address] * Lactate dehydrogenase (LD) (01/03/2025 9:49 AM CDT) Lactate dehydrogenase (LDH) 142 100 - 250 Units/L Blood 01/03/2025 9:49 AM CDT 01/03/2025 9:56 AM CDT Curly Panda MD LAB BLOOD ORDERABLES Final Res ult [facility] Department [place] [address] * Comprehensive metabolic panel (01/03/2025 9:49 AM CDT) Pathologist [facility] [place] Sodium 139 135 - 145 mmol/L Potassium, pl 3.7 3.3 - 4.9 mmol/L [facility] Chloride 102 97 - 110 mmol/L [facility] CO2 30 22 - 32 mmol/L [facility] Anion gap 7 2 - 15 mmol/L [facility] BUN 19 6 - 25 mg/dL [facility] Creatinine 0.98 0.80 - 1.30 mg/dL [facility] Glucose 88 70 - 199 mg/dL [facility] Comment: Interpretive Data Fasting glucose >/= 126 mg/dl is diagnostic for diabetes. Fasting is defined as no caloric intake for at least 8 hours. Fasting glucose between 100 mg/dl to 125 mg/dl is diagnostic of prediabetes. In a patient with classic symptoms of hyperglycemia or hyperglycemic crisis, a random glucose >/= 200 mg/dl is diagnostic for diabetes. In the absence of unequivocal hyperglycemia, results should be confirmed by repeat testing. The classification and Diagnosis of Diabetes Diabetes Care 2021; 46: S19-S40. Current interpretive data was last revised 2022. Calcium 9.2 8.5 - 10.3 mg/dL [facility] Bilirubin, total 0.6 0.1 - 1.2 mg/dL [facility] Protein, pl 7.0 6.5 - 8.5 g/dL [facility] Albumin 3.9 3.5 - 5.0 g/dL [facility] Alk phos 63 40 - 130 Units/L [facility] ALT 13 7 - 55 Units/L [facility] AST 20 10 - 50 Units/L [facility] Blood 01/03/2025 9:49 AM CDT 01/03/2025 9:56 AM CDT us Curly Panda MD LAB BLOOD ORDERABLES Final Res ult [facility] Department [place] [address] * CT Neck Soft Tissue W Contrast (01/03/2025 9:25 AM CDT) Anatomical Region Laterality Modality Head and Neck N/A Computed Tomogra phy 01/03/2025 4:01 PM CDT Impressions 01/03/2025 4:01 PM CDT Posttreatment findings as detailed above without disease progression. 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 TECHNIQUE: CT of the neck was performed according to standard protocol after the uneventful administration of intravenous contrast. Contrast information: 68 mL Optiray-350 COMPARISON: 07/12/2024. FINDINGS: No abnormal postcontrast enhancement or mass lesion is identified. Subtle irregularity of the left frontal scalp soft tissues is noted corresponding to posttreatment changes of known Teetee cell carcinoma. No cervical lymphadenopathy is seen by CT size criteria. Bilateral major salivary glands are symmetric and grossly unremarkable. The muscles of the neck are normal. Atherosclerotic calcification of the bilateral carotid vessels is present with at least mild stenosis on the right and moderate stenosis on the left. Fascial planes are preserved and the deep spaces of the neck are normal. The visualized airway is widely patent. The base of the skull and the temporal bones are normal. Limited views of the brain including the cerebellum and brainstem are normal. Bilateral cataract extractions. The visualized portions of the mastoids are normal. Right maxillary retention cyst. Redemonstrated multinodular goiter with bilateral nodules. Intervertebral disk heights are normal. The spinal canal is normal in caliber. No significant foraminal stenosis is appreciated. Findings in the upper thorax are detailed in the report for the concurrently acquired CT of the chest, abdomen and pelvis. Procedure Note Min Mcfadden MD - 01/03/2025 EXAMINATION: CT of the neck with contrast HISTORY: Teetee Cell Carcinoma of forehead, stage 1; evaluate for signs of disease progression/recurrence Dugger Cell Carcinoma of forehead, stage 1; evaluate for signs of disease progression/recurrence. TECHNIQUE: CT of the neck was performed according to standard protocol after the uneventful administration of intravenous contrast. Contrast information: 68 mL Optiray-350 COMPARISON: 07/12/2024. FINDINGS: No abnormal postcontrast enhancement or mass lesion is identified. Subtle irregularity of the left frontal scalp soft tissues is noted corresponding to posttreatment changes of known Dugger cell carcinoma. No cervical lymphadenopathy is seen by CT size criteria. Bilateral major salivary glands are symmetric and grossly unremarkable. The muscles of the neck are normal. Atherosclerotic calcification of the bilateral carotid vessels is present with at least mild stenosis on the right and moderate stenosis on the left. Fascial planes are preserved and the deep spaces of the neck are normal. The visualized airway is widely patent. The base of the skull and the temporal bones are normal. Limited views of the brain including the cerebellum and brainstem are normal. Bilateral cataract extractions. The visualized portions of the mastoids are normal. Right maxillary retention cyst. Redemonstrated multinodular goiter with bilateral nodules. Intervertebral disk heights are normal. The spinal canal is normal in caliber. No significant foraminal stenosis is appreciated. Findings in the upper thorax are detailed in the report for the concurrently acquired CT of the chest, abdomen and pelvis. IMPRESSION: Posttreatment findings as detailed above without disease progression. Electronically signed by: Min Mcfadden MD Curly Panda MD [facility] [place]ED[place] Final Result * CT Chest Abdomen Pelvis W Contrast (01/03/2025 9:24 AM CDT) Anatomical Region Laterality Modality Body N/A Computed Tomogra phy 01/03/2025 10:3 8 AM CDT Impressions 01/03/2025 10:38 AM CDT 1. Focal hyperattenuation within the proximal left mainstem bronchus favored to represent high attenuation desiccated debris. Recommend attention on follow-up. 2. No evidence of metastatic disease within the chest, abdomen, or pelvis. 3. Stable nonspecific interstitial pneumonia. Electronically signed by: Vasquez Baltazar M.D. 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 Evaluate for disease progression. TECHNIQUE: Transaxial computed tomographic images of the chest, abdomen and pelvis were obtained with intravenous contrast according to the standard protocol after the uneventful administration of 62 mL Opti-Ray 350 intravenous contrast. COMPARISON: CT chest abdomen pelvis 07/12/2024 FINDINGS: CHEST: 4 mm focus of hyperattenuation along the posterior aspect of the proximal left mainstem bronchus (series 3, image 70). Right middle lobe and bilateral lower lobe traction bronchiectasis. Postoperative changes of left lower lobe wedge resection. Unchanged bibasilar dominant diffuse peripheral groundglass opacities with subpleural reticulations without subpleural sparing compatible with known interstitial lung disease, pattern most compatible with nonspecific interstitial pneumonia as demonstrated on high-resolution chest CT 06/04/2021. No suspicious pulmonary nodule. Unchanged left pleural thickening. There is no pleural effusion or pneumothorax. Heart size is normal with no pericardial effusion.Multivessel coronary artery atherosclerotic calcifications The thoracic aorta is normal in appearance with a three-vessel arch. Atherosclerotic calcifications are present. There is no central pulmonary embolism. Subcentimeter mediastinal and hilar lymph nodes are unchanged from multiple previous examinations, likely chronic reactive or secondary to known lymphomatous disease. No new or suspicious morphology lymphadenopathy throughout the chest. Unchanged multinodular thyroid. Small hiatal hernia. ABDOMEN/PELVIS: Liver is normal in size and contour. No suspicious hepatic lesion. Gallbladder is normal. There is no intrahepatic or extrahepatic biliary duct dilation. Pancreas is normal. Spleen is normal. Adrenal glands are normal. 6 mm duodenal lipoma. Stomach and duodenum are otherwise normal. No small bowel wall thickening or evidence of obstruction. Colonic diverticulosis without evidence of diverticulitis. Appendix is normal. There is no mesenteric lymphadenopathy. Stable subcentimeter retroperitoneal lymph nodes.. Atherosclerosis is noted in the abdominal aorta and its branches. Portal vein, superior mesenteric vein, and splenic vein are patent. There is no intra-abdominal free air or free fluid. Symmetric renal enhancement. No hydronephrosis or nephrolithiasis. Bilateral simple renal cysts, unchanged. 2.3 cm right hemorrhagic cyst is stable from multiple previous examinations. Urinary bladder is normal. Prostate is enlarged. No iliac, inguinal, or pelvic lymphadenopathy. MUSCULOSKELETAL: No acute osseus abnormality. Healed left rib fractures with dystrophic calcifications. Unchanged L1 burst fracture with greater than 50% vertebral body height loss with minimal retrolisthesis. No suspicious lytic or blastic osseous lesion. Multilevel spine degenerative changes. Incompletely visualized right femoral intramedullary nail fixation. 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 Evaluate for disease progression. TECHNIQUE: Transaxial computed tomographic images of the chest, abdomen and pelvis were obtained with intravenous contrast according to the standard protocol after the uneventful administration of 62 mL Opti-Ray 350 intravenous contrast. COMPARISON: CT chest abdomen pelvis 07/12/2024 FINDINGS: CHEST: 4 mm focus of hyperattenuation along the posterior aspect of the proximal left mainstem bronchus (series 3, image 70). Right middle lobe and bilateral lower lobe traction bronchiectasis. Postoperative changes of left lower lobe wedge resection. Unchanged bibasilar dominant diffuse peripheral groundglass opacities with subpleural reticulations without subpleural sparing compatible with known interstitial lung disease, pattern most compatible with nonspecific interstitial pneumonia as demonstrated on high-resolution chest CT 06/04/2021. No suspicious pulmonary nodule. Unchanged left pleural thickening. There is no pleural effusion or pneumothorax. Heart size is normal with no pericardial effusion.Multivessel coronary artery atherosclerotic calcifications The thoracic aorta is normal in appearance with a three-vessel arch. Atherosclerotic calcifications are present. There is no central pulmonary embolism. Subcentimeter mediastinal and hilar lymph nodes are unchanged from multiple previous examinations, likely chronic reactive or secondary to known lymphomatous disease. No new or suspicious morphology lymphadenopathy throughout the chest. Unchanged multinodular thyroid. Small hiatal hernia. ABDOMEN/PELVIS: Liver is normal in size and contour. No suspicious hepatic lesion. Gallbladder is normal. There is no intrahepatic or extrahepatic biliary duct dilation. Pancreas is normal. Spleen is normal. Adrenal glands are normal. 6 mm duodenal lipoma. Stomach and duodenum are otherwise normal. No small bowel wall thickening or evidence of obstruction. Colonic diverticulosis without evidence of diverticulitis. Appendix is normal. There is no mesenteric lymphadenopathy. Stable subcentimeter retroperitoneal lymph nodes.. Atherosclerosis is noted in the abdominal aorta and its branches. Portal vein, superior mesenteric vein, and splenic vein are patent. There is no intra-abdominal free air or free fluid. Symmetric renal enhancement. No hydronephrosis or nephrolithiasis. Bilateral simple renal cysts, unchanged. 2.3 cm right hemorrhagic cyst is stable from multiple previous examinations. Urinary bladder is normal. Prostate is enlarged. No iliac, inguinal, or pelvic lymphadenopathy. MUSCULOSKELETAL: No acute osseus abnormality. Healed left rib fractures with dystrophic calcifications. Unchanged L1 burst fracture with greater than 50% vertebral body height loss with minimal retrolisthesis. No suspicious lytic or blastic osseous lesion. Multilevel spine degenerative changes. Incompletely visualized right femoral intramedullary nail fixation. IMPRESSION: 1. Focal hyperattenuation within the proximal left mainstem bronchus favored to represent high attenuation desiccated debris. Recommend attention on follow-up. 2. No evidence of metastatic disease within the chest, abdomen, or pelvis. 3. Stable nonspecific interstitial pneumonia. Electronically signed by: Vasquez Baltazar M.D. Curly Panda MD IMG CT PROCEDURES Final Result * Hepatitis C antibody (01/02/2022 1:23 PM PERSONNEL ANALYST) Hep C Ab Nonreactive Nonreactive [facility] Comment: Interpretive Data Nonreactive: Antibodies to HCV not detected. Does NOT exclude the possibility of recent exposure to HCV. Equivocal: Equivocal for HCV antibodies. Supplemental molecular testing will be automatically performed to determine infection status in accordance with current CDC screening recommendations. Reactive: Positive for HCV antibodies. This may represent current or past HCV infection. Supplemental molecular testing will be automatically performed to determine current infection status in accordance with current CDC screening recommendations. Interpretive data was last revised on 2020. Testing performed by: [facility], [facility] [place] [address] Blood 01/02/2022 1:23 PM PERSONNEL ANALYST 01/02/2022 4:18 PM PERSONNEL ANALYST Marian Messina NP LAB MICROBIOLOGY - GENERAL ORDERABLES Final Result [facility] [id number] [facility]. Department [place] [address] from Last 3 Months or Most Recently Relevant to Health Maintenance Insurance [facility] MEDICARE [facility] ADVANTAGE CHOICE O [facility] ADVANTAGE CHOICE PPO Advance Directives For more information, please contact: [phone] * Full Code (Latest Code Status on File) Date Activated Date Inactivated Comments 11/29/2021 12:26 PM 12/03/2021 2:57 PM * Full Code Date Activated Date Inactivated Comments 10/31/2021 8:34 PM 11/01/2021 2:32 PM Care Teams Licensed Psychologist Relationship Specialty Start Date End Date Scottie Williamson MD [address] [place] [address] PCP - General Internal Medicine 03/03/19 Emily Blue MD [address] [place] [address] Fellow Pulmonary Disease 10/16/21 Kat Luna MD [address] [place] [address] Referring Physician Dermatology 10/16/21 Jose Diaz MD [address] [place] [address] Referring Physician Pulmonary Disease 10/16/21 Valente Torres MD [address] [facility] DEPT OTOLARYNGOLOGY, [address] [address] Referring Physician Otolaryngology 02/07/22 Thelma Brown MD [address] [facility] [address] [address] Medical Oncologist/Lead Sql Developer Medical Oncology 01/14/23
--- OUTSIDE RECORDS SUMMARY | 2025-03-31 13:05 | XMS_ITS ---
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 Immunocompromised 03/01/2022 Anemia 12/25/2021 Chronic pain 11/30/2021 Assessment & Plan (11/30/2021 7:35 AM ANALYTICAL CHEMIST): - takes oxy at home - pain following to help with acute pain issues Nausea 11/30/2021 Assessment & Plan (12/03/2021 7:22 AM ANALYTICAL CHEMIST): - improved - 2/6 KUB consistent w post op ileus, now resolved - prn antiemetics - scheduled miralax - protonix BID - azathiopine IV - maalox - continue POPM - OOB - advance diet to regular Lung mass 11/29/2021 Mass of lower lobe of left lung 11/08/2021 Assessment & Plan (12/03/2021 7:21 AM ANALYTICAL CHEMIST): Left thoracotomy, lysis of adhesions, and left lower lobe diagnostic wedge resection - chest tubes all out - pain control with POPM - OOB with PT Consolidation of left lower lobe of lung 021 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/2021): Added automatically from request for surgery [id number] Raynaud's disease 10/12/2021 Benign paroxysmal positional vertigo 10/12/2021 High risk medication use 10/09/2020 Basal cell carcinoma (BCC) of right mu-ism regio n 09/08/2019 NSIP (nonspecific interstitial pneumonia) [...] 07/20/2007 Assessment & Plan (11/30/2021 7:29 AM ANALYTICAL CHEMIST): - monitor and restart home medications as BP tolerates Pain in joint involving lower leg 07/19/2002 ILD (interstitial lung disease) ([facility]/HCC) Assessment & Plan (12/03/2021 7:20 AM ANALYTICAL CHEMIST): 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 - sees pulmonary medicince - on room air now - resume home medications as indicated Current Treatment and Therapy Plans No current plan information found. Past Treatment and Therapy Plans Lifetime Dose Tracking * Chemical Lifetime Dose Automatic Entry Manual Entr y Fluoro Time 3 minutes 3 minutes 0 minutes DLP 14,826 mGycm 14,826 mGycm 0 mGycm
--- OUTSIDE RECORDS SUMMARY | 2025-03-31 13:05 | XMS_ITS | Clinical Summary ---
Author Organization [facility] Address [address] [facility] [place] [address] Care Team Providers Care Medical Associate Name Role Phone Scottie Williamson MD Primary Care Provider + Source Comments [facility],non-owned Affiliates and Associated Physician Practices is amultiple site organization consisting of ambulatory clinics and hospital sitesin [place], [place], [place] and [place]. This disclosure is being madepursuant to the Care Everywhere program and may not contain all information available regarding this patient. Last updated 18.[facility] Allergies No known active allergies Medications * Be aware that medications may not be up to date on this document. Alwaysverify current medications with the patient. aspirin (ASPIRIN) 81 MG tablet Take 81 mg by mouth once daily Active Multiple Vitamins-Mineral s (MULTIVITAMIN ADULT PO) Take by mouth once daily Active NIFEdipine CR osmotic 24hr (PROCARDIA-XL) 60 MG tablet Take 1 (one) tablet by mouth once daily 90 tablet 10/02/2021 Active Active Problems Problem Noted Date Diagnosed Date Pulmonary infiltrate 08/18/2018 Stopped smoking with greater than 40 pack year h istory 08/18/2018 Gastroesophageal reflux disease without esophagi tis 08/18/2018 Pleural effusion 08/18/2018 Immunizations Immunization Administration Dates Next Due INFLUENZA VACCINE, TRIV. (AF LURIA, FLUZONE TRIVALENT; 6MO+) (IIV3) 08/03/2014,08/20/2012,10/29/2006 Covid TransactionTree primary monoval ent 12+ yr 0.3mL Purple cap 12/19/2020,11/24/2020 FLU VACCINE QUAD IIV4 SPLIT 0.25 ML IM 08/08/2017 INFLUENZA VACCINE 08/19/2019, 8,06/29/2018,2015,08/15/2015,07/14/2013,07/25/2011 INFLUENZA VACCINE, HIGH-DOSE , QUADR. (FLUZONE HIGH-DOSE QUADRIVALENT; 65Y+), 0.7 ML (HD-IIV4) 06/16/2020,08/19/2019,08/13/2018,2017,08/02/2016,08/15/2015 PNEUMOCOCCAL PPSV23 07/14/2013 Pneumococcal Pcv13 Conj 05/23/2017 TDAP (7yrs+) 07/25/2011 ZOSTER HISTORIC VACCINE 06/23/2018 ZOSTER VACCINE, LIVE 04/13/2012 Zoster Hzv Vacc Recombinant Inj Im 08/31/2018, Family History Medical History Relation Name Comments Cancer Father Cancer Sister Relation Name Status Comments Father Sister Social History Tobacco Use Types Packs/Day Years Used Date Smoking Tobacco: Former Cigarettes 1.5 37 1 [birth year]22/1963 - 09/22/2002 Smokeless Tobacco: Never Alcohol Use Standard Drinks/Week Comments Yes 1.7 (1 standard drink = 0.6 oz p ure alcohol) occ Sex and Gender Information Value Date Recorded Sex Assigned at Not on file Legal Sex Male 6:27 AM FIRE SPRINKLER SERVICE TECHNICIAN Gender Identity Not on file Sexual Orientation Not on file Last Filed Vital Signs Vital Sign Reading Time Taken Comments Blood Pressure 115/64 10/10/2020 9:14 AM FIRE SPRINKLER SERVICE TECHNICIAN Pulse 85 05/10/2020 9:34 AM CDT Temperature 36.4 C (97.5 F) 05/10/2020 9:34 AM CDT Respiratory Rate 18 05/20/2019 10:43 AM CDT Oxygen Saturation 97% 05/10/2020 9:34 AM CDT Inhaled Oxygen Concentration - - Weight 89.4 kg (197 lb) 05/10/2020 9:34 AM CDT Height 177.8 cm (5' 10) 05/10/2020 9:34 AM CDT Body Mass Index 28.27 05/10/2020 9:34 AM CDT Plan of Treatment Health Maintenance Due Date Last Done Comments HEPATITIS C SCREENING 09[birth year]02/1963 DTAP/TDAP/TD VACCINES (2 - Td or Tdap) 07/25/2021 07/25/2011 Respiratory Syncytial Virus (RSV) Vaccine Pt: or over 60 yrs (1 - 1-dose 75+ series) 2021 COVID-19 VACCINE ( season) 2024 07/03/2021, 12/19/2020, 11/24/2020 DEPRESSION SCREENING 10/27/2024 INFLUENZA VACCINE (Season Ended) 2025 08/14/2022, 07/10/2021, 06/16/2020, Additional history exists PNEUMOCOCCAL VACCINE 50+ Completed 05/23/2017, 06/27 ZOSTER VACCINE Completed 08/31/2018, 05/28, 06/23/2018, Additional history exists HEPATITIS B VACCINE Aged Out No longe r eligible based on patient's age to complete this topic HIB VACCINE Aged Out No longer eligi ble based on patient's age to complete this topic HPV VACCINE Aged Out No longer eligi ble based on patient's age to complete this topic MENINGOCOCCAL (Group B) VACCINE SHARED DECISION-MAKING Aged Out No longer eligible based on patient's age to complete this topic MENINGOCOCCAL GROUPS A/C/Y/W VACCINE Aged Out No longer eligible based on patient's age to complete this topic Insurance [employer] [place] [address] [place] [id number] [facility] MEDICARE Care Teams Medical Associate Relationship Specialty Start Date End Date Scottie Williamson MD [address] [place] [address] [phone] PCP - General Internal Medicine 09/22/13
--- OUTSIDE RECORDS SUMMARY | 2025-03-31 13:05 | XMS_ITS | Encounter Summary ---
Author Organization [facility] Healthcare Address [address] [place] [address] Care Team Providers Care Bag Machine Operator Name Role Phone Scottie Williamson MD Primary Care Provider Emily Blue MD Unavailable Kat Luna MD Unavailable [phone] Jose Diaz MD Unavailable [phone] Valente Torres MD Unavailable [phone] Heather Avila RN Unavailable Unavailable Thelma Brown MD Unavailable [phone] Reason for Referral * Diagnostic Imaging (Routine) - Closed Specialty Diagnoses / Procedures Referred By Contac t Referred To Contact Diagnoses Osteoporosis Procedures DEXA AXIAL SKELETON BONE DENSITY 1 OR 2 SITE Scottie Williamson MD [address] [place] [id number] Phone: tel: fax: [address] [phone] Referral ID Status Reason Start Date Expiration Date Visits Re quested Visits Authorized [id number] Closed 12/31/2022 01/30/2024 1 1 SLIDE OPERATOR Encounter Details Date Type Department Care Team (Late st Contact Info) Description 12/31/2022 Community Orders [facility] EpicCare Link Scottie Williamson MD [address] [facility] [address] [place] [address] ILD (interstitial lung disease) ([facility]) (Primary Dx); Osteoporosis screening; Osteoporosis Social History Tobacco Use Types Packs/Day Years [...] on file Legal Sex Male 12:18 AM FOUR SLIDE OPERATOR Gender Identity Not on file Sexual Orientation Straight 12/31/2019 9: 09 AM FOUR SLIDE OPERATOR documented as of this encounter Plan of Treatment Not on file documented as of this encounter Results * DEXA AXIAL SKELETON BONE DENSITY 1 OR 2 SITE (01/23/2023 7:55 AM CDT) Anatomical Region Laterality Modality Body N/A Digital Radiogra phy 01/23/2023 8:31 AM CDT Impressions 01/23/2023 9:23 AM CDT 1. The bone mineral density of the lumbar spine is increased. 2. The bone mineral density of the left femoral neck is mildly decreased. 3. The bone mineral density of the left total hip is normal. 4. Overall, the above findings are diagnostic of low bone mass (osteopenia) by WHO criteria. 5. Based on the FRAX fracture risk model, the 10-year probability for major osteoporotic fracture is 11% and that for hip fracture is 4.2%. This 10-year fracture risk estimate was calculated using the risk factors noted in the history above, along with the femoral neck bone density. FRAX is intended to help guide treatment decisions in men over age 50 and postmenopausal women with low bone mass (osteopenia). The National Osteoporosis Foundation (NOF) recommends that FDA-approved medical therapies be considered in postmenopausal women and men age 50 years and older with osteoporosis and those with low bone mass whose 10-year fracture probability by FRAX is >= 20% for major osteoporotic fracture or >= 3% for hip fracture. However, all treatment decisions require clinical judgment and consideration of individual patient factors, including patient preferences, comorbidities, previous drug use, risk factors not captured in the FRAX model (e.g., frailty, falls, vitamin D deficiency, increased bone turnover, interval significant decline in bone density) and possible under- or overestimation of fracture risk by FRAX. General comments regarding interpretation of bone density measurements: A) In children, premenopausal woman and males under age 50 not at increased risk for fractures only Z-scores, not T-scores are used to indicate risk. A Z-score above -2.0 is defined as within the expected range for age and Z-score at or less than -2.0 is below the expected range for age. A Z-score below the expected range for age in a patient with recent fractures and/or chronic corticosteroid treatment is consistent with a diagnosis of osteoporosis. B) In post menopausal women and males over 50, comparison of the measured bone mineral density with the average value in young normal subjects (the T-score) has been found to be useful in assessing fracture risk. Fracture risk approximately doubles for each 1.0 standard deviation (SD) in individual's hip or spine bone mineral density is below the average value of young normal subjects. The World Health Organization (WHO) has defined T-scores of -1.0 to -2.5 as diagnostic of low bone mass (OSTEOPENIA), and T-scores of -2.5 or lower to be diagnostic of OSTEOPOROSIS, based on the site of lowest bone density. Note that there will be a change in reporting format and reference databases as patients move from the younger population (group A) to the older population (group B) The National Osteoporosis Foundation (www.nof.org) recommends adequate intake of calcium and vitamin D and regular weight-bearing exercise in all patients. They recommend pharmacologic treatment in postmenopausal women and men age 50 and older presenting with any of the followin) Osteoporosis, after appropriate evaluation to exclude secondary causes. 2) A hip or vertebral (clinical or radiographic) fracture, regardless of the bone density. 3) Low bone mass (Osteopenia) and one or more of: other prior fractures, secondary causes associated with high risk of fracture (such as glucocorticoid use or total immobilization), or computed high risk of fracture (10-yr probability of hip fracture >= 3% or a 10-yr probability of any major osteoporosis-related fracture >= 20% based on the [place].-adapted WHO algorithm), available at http://www.shef.ac.uk/FRAX). Dictated by: Jacinto Diaz M.D. The radiology attending physician has personally reviewed this study, and had reviewed and/or edited this written report and agrees with it. Electronically signed by: Libertad Silver M.D. Narrative 01/23/2023 9:23 AM CDT BONE DENSITOMETRY OF THE SPINE AND HIP DATE OF STUDY: 01/23/2023 HISTORY: 77-year-old man with [place] cell carcinoma, marginal zone lymphoma, interstitial lung disease on care home steroids. He is not taking specific bone density modifying agents. Evaluate bone mineral density. Additional risk factors for fracture: chronic glucocorticoids. FINDINGS (SPINE): The bone mineral density of L1-L4 was assessed by dual-energy x-ray absorptiometry. The average bone mineral density within this region is 1.294 gm/sq-cm. This is 2.9 standard deviations above the mean of the average bone mineral density for age- and gender-matched subjects (the Z-score). It is 2.2 standard deviations above the mean peak bone mineral density in young adults (the T-score). FINDINGS (FEMORAL NECK): The bone mineral density of the left femoral neck was assessed by dual-energy x-ray absorptiometry. The average bone mineral density within the femoral neck region is 0.677 gm/sq-cm. This is 0.5 standard deviations below the mean of the average bone mineral density for age- and gender-matched subjects (the Z-score). It is 1.6 standard deviations below the mean peak bone mineral density in young adults (the T-score). FINDINGS (TOTAL HIP): The bone mineral density of the left hip was assessed by dual-energy x-ray absorptiometry. The average bone mineral density within the total hip region is 0.820 gm/sq-cm. This is 0.5 standard deviations below the mean of the average bone mineral density for age- and gender-matched subjects (the Z-score). It is 1.0 standard deviations below the mean peak bone mineral density in young adults (the T-score). SUMMARY OF CURRENT RESULTS: Region BMD T-score Z-score AP Spine (L1-L4) 1.294 2.2 2.9 Femoral Neck (Left) 0.677 -1.6 -0.5 Total Hip (Left) 0.820 -1.0 -0.5 Procedure Note Libertad Silver MD - 01/23/2023 BONE DENSITOMETRY OF THE SPINE AND HIP DATE OF STUDY: 01/23/2023 HISTORY: 77-year-old man with [place] cell carcinoma, marginal zone lymphoma, interstitial lung disease on care home steroids. He is not taking specific bone density modifying agents. Evaluate bone mineral density. Additional risk factors for fracture: chronic glucocorticoids. FINDINGS (SPINE): The bone mineral density of L1-L4 was assessed by dual-energy x-ray absorptiometry. The average bone mineral density within this region is 1.294 gm/sq-cm. This is 2.9 standard deviations above the mean of the average bone mineral density for age- and gender-matched subjects (the Z-score). It is 2.2 standard deviations above the mean peak bone mineral density in young adults (the T-score). FINDINGS (FEMORAL NECK): The bone mineral density of the left femoral neck was assessed by dual-energy x-ray absorptiometry. The average bone mineral density within the femoral neck region is 0.677 gm/sq-cm. This is 0.5 standard deviations below the mean of the average bone mineral density for age- and gender-matched subjects (the Z-score). It is 1.6 standard deviations below the mean peak bone mineral density in young adults (the T-score). FINDINGS (TOTAL HIP): The bone mineral density of the left hip was assessed by dual-energy x-ray absorptiometry. The average bone mineral density within the total hip region is 0.820 gm/sq-cm. This is 0.5 standard deviations below the mean of the average bone mineral density for age- and gender-matched subjects (the Z-score). It is 1.0 standard deviations below the mean peak bone mineral density in young adults (the T-score). SUMMARY OF CURRENT RESULTS: Region BMD T-score Z-score AP Spine (L1-L4) 1.294 2.2 2.9 Femoral Neck (Left) 0.677 -1.6 -0.5 Total Hip (Left) 0.820 -1.0 -0.5 IMPRESSION: 1. The bone mineral density of the lumbar spine is increased. 2. The bone mineral density of the left femoral neck is mildly decreased. 3. The bone mineral density of the left total hip is normal. 4. Overall, the above findings are diagnostic of low bone mass (osteopenia) by WHO criteria. 5. Based on the FRAX fracture risk model, the 10-year probability for major osteoporotic fracture is 11% and that for hip fracture is 4.2%. This 10-year fracture risk estimate was calculated using the risk factors noted in the history above, along with the femoral neck bone density. FRAX is intended to help guide treatment decisions in men over age 50 and postmenopausal women with low bone mass (osteopenia). The National Osteoporosis Foundation (NOF) recommends that FDA-approved medical therapies be considered in postmenopausal women and men age 50 years and older with osteoporosis and those with low bone mass whose 10-year fracture probability by FRAX is >= 20% for major osteoporotic fracture or >= 3% for hip fracture. However, all treatment decisions require clinical judgment and consideration of individual patient factors, including patient preferences, comorbidities, previous drug use, risk factors not captured in the FRAX model (e.g., frailty, falls, vitamin D deficiency, increased bone turnover, interval significant decline in bone density) and possible under- or overestimation of fracture risk by FRAX. General comments regarding interpretation of bone density measurements: A) In children, premenopausal woman and males under age 50 not at increased risk for fractures only Z-scores, not T-scores are used to indicate risk. A Z-score above -2.0 is defined as within the expected range for age and Z-score at or less than -2.0 is below the expected range for age. A Z-score below the expected range for age in a patient with recent fractures and/or chronic corticosteroid treatment is consistent with a diagnosis of osteoporosis. B) In post menopausal women and males over 50, comparison of the measured bone mineral density with the average value in young normal subjects (the T-score) has been found to be useful in assessing fracture risk. Fracture risk approximately doubles for each 1.0 standard deviation (SD) in individual's hip or spine bone mineral density is below the average value of young normal subjects. The World Health Organization (WHO) has defined T-scores of -1.0 to -2.5 as diagnostic of low bone mass (OSTEOPENIA), and T-scores of -2.5 or lower to be diagnostic of OSTEOPOROSIS, based on the site of lowest bone density. Note that there will be a change in reporting format and reference databases as patients move from the younger population (group A) to the older population (group B) The National Osteoporosis Foundation (www.nof.org) recommends adequate intake of calcium and vitamin D and regular weight-bearing exercise in all patients. They recommend pharmacologic treatment in postmenopausal women and men age 50 and older presenting with any of the followin) Osteoporosis, after appropriate evaluation to exclude secondary causes. 2) A hip or vertebral (clinical or radiographic) fracture, regardless of the bone density. 3) Low bone mass (Osteopenia) and one or more of: other prior fractures, secondary causes associated with high risk of fracture (such as glucocorticoid use or total immobilization), or computed high risk of fracture (10-yr probability of hip fracture >= 3% or a 10-yr probability of any major osteoporosis-related fracture >= 20% based on the [place].-adapted WHO algorithm), available at http://www.shef.ac.uk/FRAX). Dictated by: Jacinto Diaz M.D. The radiology attending physician has personally reviewed this study, and had reviewed and/or edited this written report and agrees with it. Electronically signed by: Libertad Silver M.D. Scottie Williamson MD IMG DXA PROCEDURES Christin l Result documented in this encounter Visit Diagnoses Diagnosis ILD (interstitial lung disease) (HCC)- Primary Postinflammatory pulmonary fibrosis Osteoporosis screening Special screening for osteoporosis Osteoporosis Unspecified osteoporosis Osteoporosis Unspecified osteoporosis documented in this encounter Additional Health Concerns Infection Onset Date Last Indicated Resolved Time COVID: Suspected 07/02/2024 07/02/2024 07/02/2024 12:21 PM CDT Rhino/Enterovirus 07/02/2024 07/02/2024 07/09/2024 3:05 AM CDT documented as of this encounter Care Teams Bag Machine Operator Relationship Specialty Start Date End Date Scottie Williamson MD [address] [place] [address] PCP - General Internal Medicine 03/03/19 Emily Blue MD [address] [place] [address] Fellow Pulmonary Disease 10/16/21 Kat Luna MD [facility] [place] [address] Referring Physician Dermatology 10/16/21 Jose Diaz MD [address] [place] [address] Referring Physician Pulmonary Disease 10/16/21 Valente Torres MD [address] [facility] DEPT OTOLARYNGOLOGY, [address] [address] Referring Physician Otolaryngology 02/07/22 Heather Avila, RN Registered Nurse 05/02/22 02/03/25 Thelma Brown MD Medical Oncologist/Live Ammunition Inspector Medical Oncology 01/14/23 documented as of this encounter
--- OUTSIDE RECORDS SUMMARY | 2025-03-31 13:05 | XMS_ITS | Clinical Summary ---
Author Organization [facility] Address [address] [place] [address] Care Team Providers Care Flight Mechanic Name Role Phone Scottie Williamson MD Primary Care Provider Emily Blue MD Unavailable Kat Luna MD Unavailable [phone] Jose Diaz MD Unavailable [phone] Valente Torres MD Unavailable [phone] Thelma Brown MD Unavailable [phone] Allergies No known active allergies Medications multivitamin [...] 11/30/2021 Assessment & Plan (11/30/2021 7:35 AM SITE IDENTIFICATION SPECIALIST): - takes oxy at home - pain following to help with acute pain issues Nausea 11/30/2021 Assessment & Plan (12/03/2021 7:22 AM SITE IDENTIFICATION SPECIALIST): - improved - 12/02 KUB consistent w post op ileus, now resolved - prn antiemetics - scheduled miralax - protonix BID - azathiopine IV - maalox - continue POPM - OOB - advance diet to regular Lung mass 11/29/2021 Mass of lower lobe of left lung 11/08/2021 Assessment & Plan (12/03/2021 7:21 AM SITE IDENTIFICATION SPECIALIST): Left thoracotomy, lysis of adhesions, and left lower lobe diagnostic wedge resection - chest tubes all out - pain control with POPM - OOB with PT Consolidation of left lower lobe of lung 021 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/2021): Added automatically from request for surgery [id number] Raynaud's disease 10/12/2021 Benign paroxysmal positional vertigo 10/12/2021 High risk medication use 10/09/2020 Basal cell carcinoma (BCC) of right roman catholic regio n 09/08/2019 NSIP (nonspecific interstitial pneumonia) [...] 07/20/2007 Assessment & Plan (11/30/2021 7:29 AM SITE IDENTIFICATION SPECIALIST): - monitor and restart home medications as BP tolerates Pain in joint involving lower leg 07/19/2002 ILD (interstitial lung disease) (CMS/HCC) Assessment & Plan (12/03/2021 7:20 AM SITE IDENTIFICATION SPECIALIST): 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 - sees pulmonary medicince - on room air now - resume home medications as indicated Encounters Date Type Department Care Team Description 03/29/2025 Telephone [facility] Pulmonary [address] [place] [address] Advanced Medicine 8th [place] [address] [place] [id number] Jane Garcias RN 03/29/2025 Results Follow-Up Pulmonology Jose Diaz MD CT Chest PE (CTA) and Chest High Resolution W Contrast 03/25/2025 3:15 PM CDT - 03/25/2025 11:59 PM CDT Hospital Encounter [facility] [address] [place] [id number] Jose Diaz MD ILD (interstitial lung disease) (HCC); NSIP (nonspecific interstitial pneumonia) ([facility]); Shortness of breath Discharge Disposition: Discharge to home or self care 03/25/2025 2:44 PM CDT - 03/25/2025 11:59 PM CDT Hospital Encounter [facility] Pulmonary [address] [place] [address] [address] [place] [address] ILD (interstitial lung disease) (HCC); NSIP (nonspecific interstitial pneumonia) (HCC); Shortness of breath Discharge Disposition: Discharge to home or self care 03/24/2025 Telephone [facility] Pulmonary [address] [place] [address] [place] [address] [place] [address] Jane Garcias RN 03/01/2025 Telephone [facility]monary [address] [place] [address] Advanced [facility] 8th [place] [address] [place] [address] Huyen Crooks CMA 02/28/2025 9:00 AM CDT Procedure visit [facility] Otolaryngology [address] [place] [address] Christina Roman Au.D. Sensorineural hearing loss (SNHL), bilateral (Primary Dx) 02/28/2025 8:30 AM CDT Procedure visit [facility] Otolaryngology [address] [place] [phone] Christina Roman Au.D. Sensorineural hearing loss (SNHL), bilateral (Primary Dx) 02/24/2025 Telephone [facility] Pulmonary [address] [place] [address] [place] [address] [place] [address] Jane Garcias RN 02/03/2025 10:00 AM CDT Office Visit [facility] Oncology [facility] [address] [place] [address] Marian Messina NP Extranodal marginal zone B-cell lymphoma (Primary Dx) 02/03/2025 9:15 AM CDT Lab [facility] - Lab Collection [facility] [address] [place] [address] Extranodal marginal zone B-cell lymphoma 01/21/2025 9:45 AM CDT Office Visit [facility] Pulmonary [address] [place] [address] [place] [address] [place] [address] Robby Ontiveros MD ILD (interstitial lung disease) (HCC) (Primary Dx); High risk medication use; Physical deconditioning 01/21/2025 8:50 AM CDT - 01/21/2025 11:59 PM CDT Hospital Encounter [facility] Pulmonary [facility] [address] [id number] ILD (interstitial lung disease) (HCC); NSIP (nonspecific interstitial pneumonia) (HCC); Gastroesophageal reflux disease without esophagitis; Acute cough Discharge Disposition: Discharge to home or self care 01/21/2025 Telephone [facility] [address] [place] [address] [place] [address] Huyen Crooks CMA 01/07/2025 Telephone [facility]monary [address] [facility] 8th [place] [address] [place] [address] Jane Garcias RN R/S Appt 01/03/2025 11:00 AM CDT Office Visit [facility] Floor 6 [place] [address] Curly Panda MD 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) 01/03/2025 10:15 AM CDT Lab [facility] - Lab Collection [address] [facility] Floor 6 [place] [address] 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) 01/03/2025 10:00 AM CDT Lab [facility] Oncology Lab [facility] Floor 6 [place] [address] 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) 01/03/2025 9:00 AM CDT - 01/03/2025 11:59 PM CDT Hospital Encounter [facility] - [place] [address] [facility] Floor 8 [place] [address] 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) Discharge Disposition: Discharge to home or self care 01/03/2025 8:45 AM CDT - 01/03/2025 11:59 PM CDT Hospital Encounter [facility] - [place] [address] [place] [address] Floor 8 [place] [address] 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) Discharge Disposition: Discharge to home or self care from Last 3 Months Immunizations Immunization Administration Dates Next Due COVID-19 MRNA (MODERNA) .25 ML (25 MCG) VACCINE (6 MOS- 11 YRS) 01/07/2024 COVID-19 mRNA ([employer]) 0.3 m L (30 mcg) vaccine (12 [...] 04/13/2012 ZOSTER Recombinant 08/31/2018,06/23/2018 Zoster, unspecified 06/23/2018 Surgical History Surgery Date Site/Laterality Comments LEG SURGERY 10/27/2011 - 10/26/2012 Right UPPER GASTROINTESTINAL ENDOSCOPY COLONOSCOPY FOREHEAD FLAP 10/31/2021 LUNG SURGERY 11/27/2021 - 12/24/2021 mass removal Medical History Medical History Date Comments Motion sickness HTN (hypertension) HL (hearing loss) Cancer (HCC) GERD (gastroesophageal reflux disease) Family History Medical History Relation Name Comments Melanoma Daughter Family history of malignant melanoma - (Added by TW Conv) Cancer Father Ed Sr Diabetes Maternal Grandfather Arthritis Mother Dana Diabetes Mother Dana Anesthesia problems Neg Hx Relation Name Status Comments Daughter Father Ed Sr Maternal Grandfather Mother Dana Social History Tobacco Use Types Packs/Day Years [...] on file Legal Sex Male 12:18 AM SITE IDENTIFICATION SPECIALIST Gender Identity Not on file Sexual Orientation Straight 12/31/2019 9: 09 AM SITE IDENTIFICATION SPECIALIST Obstetrics History Last Filed Vital Signs Vital Sign Reading [...] 01/21/2025 9:21 AM CDT Plan of Treatment Health Maintenance Due Date Last Done Comments Depression Screening 1945 Hepatitis B Screening 1963 Well Visit 65+ 2011 DTaP/Tdap/Td Vaccine (2 - Td or Tdap) 07/25/2021 07/25/2011 Fall Risk Assessment 12/03/2022 12/03/2021 Covid-19 Vaccine (7 - Pfizer risk 2023- season) 2025 08/27/2024, 01/07/2024, 07/26/2023, Additional history exists Pneumococcal vaccine 65+ Completed 05/23/2017, 06/27 Zoster Vaccine Completed 08/31/2018, 05/28, 06/23/2018, Additional history exists Hepatitis C Screening Completed 01/02/2022 Influenza Vaccine Completed 08/27/2024, , 07/10/2023, Additional history exists Abdominal Aortic Aneurysm (A AA) Screen Completed 01/03/2025, 07/12/2024, 01/05/2024, Additional history exists Procedures Procedure Name Priority Date/Time Associated Diagnosis [...] cough EGFR Routine 01/03/2025 9:49 AM CDT 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) DIFFERENTIAL AUTO Routine 01/03/2025 9:4 9 AM CDT 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) CBC WITH AUTO DIFFERENTIAL Routine 01/03/2025 9:49 AM CDT 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) COMPREHENSIVE METABOLIC PANEL Routine 01/03/2025 9:49 AM CDT 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 Jose Diaz MD IM CT PROCEDURES Final Result * Pulmonary Function Test - (03/25/2025 3:12 PM CDT) FVC PRE 2.43 L [facility] FVC %PRE PRED 64 % [facility] FEV1 PRE 1.86 L [facility] FEV1 %PRE PRED 66 % [facility] FEV1/FVC PRE 76.5 % [facility] Anatomical Region Laterality Modality PFT 03/25/2025 2:57 PM CDT Narrative 03/28/2025 9:19 AM CDT Table formatting from the original result was not included. [facility] Division of Pulmonary & Critical Care Medicine [address] [place] [address]; [place] [facility]; [place] [address]; [phone] Pulmonary Function Laboratory Pulmonary Stress Test Simple/Oxygen [...] Work [distance (m) x body wt (kg)]: 91325 kg.m (normal >60,000kg.m) Oxygen required to maintain [...] with the written final report. PFT performed at:->[facility] Adult PFT Lab- [facility]-8D Procedure:->Oxygen Assessment Titration [...] and %HbO2 is age dependent. However, the [facility] Pulmonary Function Laboratory defines hypoxemia as a PaO2 <56 mm Hg or a %HbO2 <89%. Starting on October of 2024 the [facility] Pulmonary Function Laboratory utilizes race neutral GLI Global normative equations. us Jose Diaz MD PFT ORDERABLES Final Result [...] MD LAB BLOOD ORDERABLES Final Re sult [facility] Department [place] [address] * (ABNORMAL) Differential, auto (02/03/2025 9:15 AM CDT) Neutrophil abs 5.88 1.50 - 6.50 K/cumm Comment:Testing performed by : [facility], [address] [place] [address], [place] [phone] Lymphocyte abs 1.37 0.80 - 3.30 K/cumm [facility] Comment:Testing performed by : [facility], [address] [place] [phone] Monocyte abs 1.22(H) 0.20 - 0.80 K/cumm [facility] Comment:Testing performed by : [facility], [address] [place] [phone] Eosinophil abs 0.14 0.00 - 0.50 K/cumm [facility] Comment:Testing performed by : [facility], [address] [place] [phone] Basophil abs 0.06 0.00 - 0.10 K/cumm [facility] Comment:Testing performed by : [facility], [address] [place] [phone] Neutrophil pct 67.9 % [facility] Comment: Interpretive Data Percent cell count reference ranges are not reported, since discordance with absolute values may lead to misinterpretation of CBC data. Current Interpretive Data was last revised on 2018. Testing performed by: [facility], [address] [place] [phone] Lymphocyte pct 15.8 % [facility] Comment: Interpretive Data Percent cell count reference ranges are not reported, since discordance with absolute values may lead to misinterpretation of CBC data. Current Interpretive Data was last revised on 2018. Testing performed by: [facility], [address] [place] [phone] Monocyte pct 14.0 % [facility] Comment: Interpretive Data Percent cell count reference ranges are not reported, since discordance with absolute values may lead to misinterpretation of CBC data. Current Interpretive Data was last revised on 2018. Testing performed by: [facility], [address] [place] [phone] Eosinophil pct 1.7 % [facility] Comment: Interpretive Data Percent cell count reference ranges are not reported, since discordance with absolute values may lead to misinterpretation of CBC data. Current Interpretive Data was last revised on 2018. Testing performed by: [facility], [address] [place] [phone] Basophil pct 0.7 % [facility] Comment: Interpretive Data Percent cell count reference ranges are not reported, since discordance with absolute values may lead to misinterpretation of CBC data. Current Interpretive Data was last revised on 2018. Testing performed by: [facility], [address] [place] [address] Blood 02/03/2025 9:15 AM CDT 02/03/2025 9:30 AM CDT us Thelma Brown MD LAB BLOOD ORDERABLES Final Re sult [facility] Department [place] [address] * CBC with auto differential (02/03/2025 9:15 AM CDT) WBC 8.66 3.80 - 9.90 K/cumm Comment:Testing performed by : [facility], [address] [place] [address] Hgb 15.2 13.0 - 17.5 g/dL [facility] Comment:Testing performed by : [facility], [address] [place] [address] Hct 45.4 38.9 - 50.3 % [facility] Comment:Testing performed by : [facility], [address] [place] [address] Plt 302 150 - 400 K/cumm [facility] Comment:Testing performed by : [facility], [address] [place] [address] MPV 7.6 6.8 - 10.4 fL [facility] Comment:Testing performed by : [facility], [address] [place] [address] RBC 4.99 4.30 - 5.80 M/cumm [facility] Comment:Testing performed by : [facility], [address] [place] [address] MCV 90.9 81.3 - 96.4 fL [facility] Comment:Testing performed by : [facility], [address] [place], [place] [phone] MCH 30.5 27.1 - 33.3 pg [facility] Comment:Testing performed by : [facility], [address] [place], [place] [phone] MCHC 33.6 32.3 - 35.7 g/dL [facility] Comment:Testing performed by : [facility], [address] [place], [place] [phone] RDW CV 14.3 11.1 - 14.9 % [facility] Comment:Testing performed by : [facility], [address] [place], [place] [phone] NRBC abs 0.00 0.00 - 0.01 K/cumm [facility] Comment:Testing performed by : [facility], [address] [place], [place] [phone] Blood 02/03/2025 9:15 AM CDT 02/03/2025 9:30 AM CDT us Thelma Brown MD LAB BLOOD ORDERABLES Final Re sult [facility] Department [place] [address] * (ABNORMAL) Protein electrophoresis with reflex, serum with interpretation (02/03/2025 9:15 AM CDT) Protein, sr 7.2 6.2 - 8.2 g/dL Albumin 4.1 3.2 - 5.0 g/dL [facility] Alpha-1 globulin 0.3 0.2 - 0.4 g/dL [facility] Alpha-2 globulin 0.7 0.5 - 1.0 g/dL [facility] Beta-1 globulin 0.5 0.3 - 0.6 g/dL [facility] Beta-2 globulin 0.4 0.2 - 0.6 g/dL [facility] Gamma globulin 1.2 0.5 - 1.7 g/dL [facility] Rstr Pk Gamma 0.3(H) 0.0 - 0.0 g/dL [facility] SPEP interp Please see comment [facility] Comment: Abnormal restricted peak in Gamma region Electrophoretic pattern appears similar to previous sample 01/30/2024 Reviewed and signed by Chase Mason MD, PhD 02/04/2025 Blood 02/03/2025 9:15 AM CDT 02/03/2025 10:35 AM CDT Thelma Brown MD LAB BLOOD ORDERABLES Final Re sult Performing Organization Address [facility] Co de Phone Number [facility] Department [place] [address] * Lactate dehydrogenase (LD) (02/03/2025 9:15 AM CDT) Lactate dehydrogenase (LDH) 149 100 - 250 Units/L Blood 02/03/2025 9:15 AM CDT 02/03/2025 9:35 AM CDT Thelma Brown MD LAB BLOOD ORDERABLES Final Re sult Performing Organization Address [facility] Co de Phone Number [facility] Department [place] [address] * IgA (02/03/2025 9:15 AM CDT) Immunoglobulin A 270 70 - 400 mg/dL Blood 02/03/2025 9:15 AM CDT 02/03/2025 9:51 AM CDT Thelma Brown MD LAB BLOOD ORDERABLES Final Re sult Performing Organization Address [facility] Co de Phone Number [facility] Department [place] [address] * (ABNORMAL) IgM (02/03/2025 9:15 AM CDT) Pathologist [facility] Immunoglobulin M 314(H) 40 - 230 mg/dL Blood 02/03/2025 9:15 AM CDT 02/03/2025 9:51 AM CDT Thelma Brown MD LAB BLOOD ORDERABLES Final Re sult Performing Organization Address [email or web address] de Phone Number [facility] Department [place] [address] * IgG (02/03/2025 9:15 AM CDT) Pathologist [facility] Immunoglobulin G 1,213 700 - 1,600 mg/dL Blood 02/03/2025 9:15 AM CDT 02/03/2025 9:51 AM CDT Thelma Brown MD LAB BLOOD ORDERABLES Final Re sult Performing Organization Address [facility] [[email or web address]] de Phone Number [facility] [place] [address] * Comprehensive metabolic panel (02/03/2025 9:15 AM CDT) [facility] Sodium 142 135 - 145 mmol/L Potassium, pl 4.4 3.3 - 4.9 mmol/L [facility] Chloride 104 97 - 110 mmol/L [facility] CO2 30 22 - 32 mmol/L [facility] Anion gap 8 2 - 15 mmol/L [facility] BUN 16 6 - 25 mg/dL [facility] Creatinine 1.03 0.80 - 1.30 mg/dL [facility] Glucose 95 70 - 199 mg/dL [facility] Comment: Interpretive Data Fasting glucose >/= 126 [...] 2022. Calcium 9.6 8.5 - 10.3 mg/dL [facility] Bilirubin, total 0.5 0.1 - 1.2 mg/dL [facility] Protein, pl 7.6 6.5 - 8.5 g/dL [facility] Albumin 4.1 3.5 - 5.0 g/dL [facility] Alk phos 71 40 - 130 Units/L [facility] ALT 13 7 - 55 Units/L [facility] AST 21 10 - 50 Units/L [facility] Blood 02/03/2025 9:15 AM CDT 02/03/2025 9:35 AM CDT us Thelma Brown MD LAB BLOOD ORDERABLES Final Re sult [facility] Department [place] [address] * Pulmonary Function Test - (01/21/2025 9:15 AM CDT) FVC PRE 2.40 L [facility] FVC %PRE PRED 63 % [facility] FEV1 PRE 1.83 L [facility] FEV1 %PRE PRED 65 % [facility] FEV1/FVC PRE 76.0 % [facility] Anatomical Region Laterality Modality PFT 01/21/2025 8:59 AM CDT Narrative 01/21/2025 11:12 AM CDT Table formatting from the original result was not included. [facility] Division of Pulmonary & Critical Care Medicine [address] [place] [address]; [place] [address]; [place] [address]; [phone] Pulmonary Function Laboratory Pulmonary Stress Test Simple/Oxygen [...] Work [distance (m) x body wt (kg)]: 44726 kg.m (normal >60,000kg.m) Oxygen required to maintain [...] with the written final report. PFT performed at:->[facility] Adult PFT Lab- [facility]8D Procedure:->Spirometry Procedure:->Oxygen Assessment [...] and %HbO2 is age dependent. However, the [facility] Pulmonary Function Laboratory defines hypoxemia as a PaO2 <56 mm Hg or a %HbO2 <89%. Starting on October of 2024 the [facility] Pulmonary Function Laboratory utilizes race neutral GLI [...] LAB BLOOD ORDERABLES Final Res ult [facility] Department [place] [address] * (ABNORMAL) Differential, auto (01/03/2025 9:49 AM CDT) Neutrophil abs 5.6 1.5 - 6.5 K/cumm Comment:Testing performed by : [facility], [address] [place] [phone] Lymphocyte abs 1.2 0.8 - 3.3 K/cumm [facility] Comment:Testing performed by : [facility], [address] [place] [phone] Monocyte abs 1.1(H) 0.2 - 0.8 K/cumm [facility] Comment:Testing performed by : [facility], [address] [place], [place] [phone] Eosinophil abs 0.2 0.0 - 0.5 K/cumm [facility] Comment:Testing performed by : [facility], [address] [place] [phone] Basophil abs 0.0 0.0 - 0.1 K/cumm [facility] Comment:Testing performed by : [facility], [address] [place], [place] [id number] Neutrophil pct 68.9 % [facility] Comment: Interpretive Data Percent cell count reference ranges are not reported, since discordance with absolute values may lead to misinterpretation of CBC data. Current Interpretive Data was last revised on 2018. Testing performed by: [facility], [address] [place] [phone] Lymphocyte pct 14.4 % [facility] Comment: Interpretive Data Percent cell count reference ranges are not reported, since discordance with absolute values may lead to misinterpretation of CBC data. Current Interpretive Data was last revised on 2018. Testing performed by: [facility], [address] [place] [phone] Monocyte pct 14.1 % [facility] Comment: Interpretive Data Percent cell count reference ranges are not reported, since discordance with absolute values may lead to misinterpretation of CBC data. Current Interpretive Data was last revised on 2018. Testing performed by: [facility], [address] [place] [phone] Eosinophil pct 2.0 % [facility] Comment: Interpretive Data Percent cell count reference ranges are not reported, since discordance with absolute values may lead to misinterpretation of CBC data. Current Interpretive Data was last revised on 2018. Testing performed by: [facility], [address] [place] [phone] Basophil pct 0.6 % [facility] Comment: Interpretive Data Percent cell count reference ranges are not reported, since discordance with absolute values may lead to misinterpretation of CBC data. Current Interpretive Data was last revised on 2018. Testing performed by: [facility], [address] [place] [phone] Blood 01/03/2025 9:49 AM CDT 01/03/2025 9:53 AM CDT us Curly Panda MD LAB BLOOD ORDERABLES Final Res ult [facility] Department [place] [address] * CBC with auto differential (01/03/2025 9:49 AM CDT) WBC 8.1 3.8 - 9.9 K/cumm Comment:Testing performed by : [facility], [address] [place] [address] Hgb 14.0 13.0 - 17.5 g/dL [facility] Comment:Testing performed by : [facility], [address] [place] [address] Hct 42.2 38.9 - 50.3 % [facility] Comment:Testing performed by : [facility], [address] [place] [address] Plt 278 150 - 400 K/cumm [facility] Comment:Testing performed by : [facility], [address] [place] [address] MPV 7.4 6.8 - 10.4 fL [facility] Comment:Testing performed by : [facility], [address] [place] [address] RBC 4.63 4.30 - 5.80 M/cumm [facility] Comment:Testing performed by : [facility], [address] [place] [address] MCV 91.1 81.3 - 96.4 fL [facility] Comment:Testing performed by : [facility], [address] [place] [address] MCH 30.1 27.1 - 33.3 pg [facility] Comment:Testing performed by : [facility], [address] [place] [address] MCHC 33.1 32.3 - 35.7 g/dL [facility] Comment:Testing performed by : [facility], [address] [place] [address] RDW CV 14.2 11.1 - 14.9 % [facility] Comment:Testing performed by : [facility], [address] [place] [address] NRBC abs 0.00 0.00 - 0.01 K/cumm [facility] Comment:Testing performed by : [facility], [address] [place] [address] Blood 01/03/2025 9:49 AM CDT 01/03/2025 9:53 AM CDT Curly Panda MD LAB BLOOD ORDERABLES Final Res ult Performing Organization Address City/[facility] Co de Phone Number [facility] Department [place] [address] * Lactate dehydrogenase (LD) (01/03/2025 9:49 AM CDT) Lactate dehydrogenase (LDH) 142 100 - 250 Units/L Blood 01/03/2025 9:49 AM CDT 01/03/2025 9:56 AM CDT Curly Panda MD LAB BLOOD ORDERABLES Final Res ult Performing Organization Address [facility]/ZIP Co de Phone Number [facility] Department [place] [address] * Comprehensive metabolic panel (01/03/2025 9:49 AM CDT) Sodium 139 135 - 145 mmol/L Potassium, pl 3.7 3.3 - 4.9 mmol/L [facility] Chloride 102 97 - 110 mmol/L [facility] CO2 30 22 - 32 mmol/L [facility] Anion gap 7 2 - 15 mmol/L [facility] BUN 19 6 - 25 mg/dL [facility] Creatinine 0.98 0.80 - 1.30 mg/dL [facility] Glucose 88 70 - 199 mg/dL [facility] Comment: Interpretive Data Fasting glucose >/= 126 [...] 2022. Calcium 9.2 8.5 - 10.3 mg/dL [facility] Bilirubin, total 0.6 0.1 - 1.2 mg/dL [facility] Protein, pl 7.0 6.5 - 8.5 g/dL [facility] Albumin 3.9 3.5 - 5.0 g/dL [facility] Alk phos 63 40 - 130 Units/L [facility] ALT 13 7 - 55 Units/L [facility] AST 20 10 - 50 Units/L [facility] Blood 01/03/2025 9:49 AM CDT 01/03/2025 9:56 AM CDT us Curly Panda MD LAB BLOOD ORDERABLES Final Res ult [facility] [place] [address] * CT Neck Soft Tissue W Contrast (01/03/2025 9:25 AM CDT) Anatomical Region Laterality Modality Head and Neck N/A Computed Tomogra phy 01/03/2025 4:01 PM CDT Impressions 01/03/2025 4:01 PM CDT Posttreatment findings as detailed above without disease progression. Electronically signed by: Min Mcfadden MD Narrative 01/03/2025 4:01 PM CDT EXAMINATION: CT of the neck with contrast HISTORY: Nunez Cell Carcinoma of forehead, stage 1; evaluate [...] by: Min Mcfadden MD Curly Panda MD IMG CT PROCEDURES Final Result * CT Chest [...] abdomen and pelvis with intravenous contrast HISTORY: Teetee carcinoma of the forehead, stage I (T1N0M0). [...] abdomen and pelvis with intravenous contrast HISTORY: Nunez carcinoma of the forehead, stage I (T1N0M0). [...] * Hepatitis C antibody (01/02/2022 1:23 PM SITE IDENTIFICATION SPECIALIST) Hep C Ab Nonreactive Nonreactive [facility] Comment: Interpretive Data Nonreactive: Antibodies to HCV [...] last revised on 2020. Testing performed by: [facility], [address] [place] [address], [place]., [address] Blood 01/02/2022 1:23 PM SITE IDENTIFICATION SPECIALIST 01/02/2022 4:18 PM SITE IDENTIFICATION SPECIALIST Marian Messina NP LAB MICROBIOLOGY - GENERAL ORDERABLES Final Result [facility] [address] [facility]. Department of [place] [id number] from Last 3 Months or Most Recently Relevant to Health Maintenance Insurance [facility] MEDICARE [facility] ADVANTAGE CHOICE PPO [facility] ADVANTAGE CHOICE PPO Advance Directives For more information, please contact: [phone] * Full Code (Latest Code Status on File) Date Activated Date Inactivated Comments 11/29/2021 12:26 PM 12/03/2021 2:57 PM * Full Code Date Activated Date Inactivated Comments 10/31/2021 8:34 PM 11/01/2021 2:32 PM Care Teams Flight Mechanic Relationship Specialty Start Date End Date Scottie Williamson MD [address] [address] PCP - General Internal Medicine 03/03/19 Emily Blue MD [address] [place] [address] Fellow Pulmonary Disease 10/16/21 Kat Luna MD [address] [place] [address] Referring Physician Dermatology 10/16/21 Jose Diaz MD [address] [facility] [address] [place] [address] Referring Physician Pulmonary Disease 10/16/21 Valente Torres MD [address] [facility] DEPT OTOLARYNGOLOGY, [address] [address] Referring Physician Otolaryngology 02/07/22 Thelma Brown MD [address] [facility] DEPT OTOLARYNGOLOGY, [address] [address] Medical Oncologist/Renewable Energy Consultant Medical Oncology 01/14/23
--- OUTSIDE RECORDS SUMMARY | 2025-03-31 13:05 | XMS_ITS | Encounter Summary ---
Author Organization [facility] Address [address] [facility] [place] [address] Care Team Providers Care Principal Consulting Engineer Name Role Phone Scottie Williamson MD Primary Care Provider + Encounter Details Date Type Department Care Team (Late st Contact Info) Description 03/15/2020 Lab Requisition [facility] Care DermPath Lab [address] [facility] [place] [phone] Kat Luna MD [address] 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 Gender Identity Not on file Sexual Orientation Not on file documented as of this encounter Plan of Treatment Not on file documented as of this encounter Procedures Procedure Name Priority Date/Time Associated Diagnosis Comments DERMATOPATH TECHNICAL REPORT Routine 03/14/2020 12:00 AM CDT documented in this encounter Results * DERMATOPATH TECHNICAL REPORT (03/14/2020 12:00 AM CDT) Case Report Dermatopathology Report Case: [id number] Authorizing Provider: Kat Luna MD Collected: 03/14/2020 12:00 AM Ordering Location: [facility] Care DermPath Lab Received: 03/15/2020 06:43 AM Pathologist: Tammy Rivas MD Specimen: Skin, left FH sup 0 3:36 PM CDT DERMATOPATHOLOGY LABORATORY Clinical History R/O BCC, irritated. 0 3:36 PM CDT DERMATOPATHOLOGY LABORATORY Gross Description Specimen A: Received is one formalin filled container labeled with the patient's name and designated left FH sup. The specimen consists of a shave (2 pieces) measuring [id number] & [id number]. Jar 0. [facility] performed the technical component only. 0 3:36 PM CDT DERMATOPATHOLOGY LABORATORY Embedded Images 0 3:36 PM CDT DERMATOPATHOLOGY LABORATORY DISCLAIMER An external and internal positive and negative controls are appropriate for the histochemical, immunohistochemical and immunofluorescence stain(s) in this case (if any), except where stated explicitly. The performance characteristics of the stain(s) cited in this report were developed and its performance characteristic determined by the Dermatopathology Laboratory at [facility], directed by Dr. Dolores Strange. These tests need not be, and therefore are not, approved by the [place] Food and Drug Administration. The tests are used for clinical purposes. 0 3:36 PM CDT DERMATOPATHOLOGY LABORATORY at 1536 CDT Pathology/Cytolog y TISSUE SPECIMEN FROM SKIN / Unknown 03/14/2020 03/15/2020 6:43 AM CDT Kat Luna MD LAB - PATHOLOGY/CYTOLOGY OR DERABLES Final Result DERMATOPATHOLOGY LABORATORY [facility] - Department of Dermatology [facility]/[address] [phone] documented in this encounter Visit Diagnoses Not on filedocumented in this encounter Care Teams Principal Consulting Engineer Relationship Specialty Start Date End Date Scottie Williamson MD [address] [place] [phone] PCP - General Internal Medicine 09/22/13 documented as of this encounter
--- OUTSIDE RECORDS SUMMARY | 2025-03-31 13:05 | XMS_ITS | Encounter Summary ---
Author Organization [facility] Address [address] [facility] [place] [address] Care Team Providers Care Administrative Personal Assistant Name Role Phone Scottie Williamson MD Primary Care Provider + Encounter Details Date Type Department Care Team (Late st Contact Info) Description 02/10/2019 Lab Requisition [facility] Care DermPath Lab [address] [facility] [place] [phone] Kat Luna MD [address] [facility] 3 [place] [address] Social History Tobacco Use Types Packs/Day Years Used Date Smoking Tobacco: Former Cigarettes 1.5 37 1 11/22/1964 - 09/22/2002 Smokeless Tobacco: Never Alcohol Use Standard Drinks/Week Comments Yes 1.7 (1 standard drink = 0.6 oz p ure alcohol) occ Sex and Gender Information Value Date Recorded Sex Assigned at Not on file 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 Gender Identity Not on file Sexual Orientation Not on file documented as of this encounter Plan of Treatment Not on file documented as of this encounter Procedures Procedure Name Priority Date/Time Associated Diagnosis Comments DERMATOPATHOLOGY Routine 02/09/2019 12:0 0 AM CDT documented in this encounter Results * DERMATOPATHOLOGY (02/09/2019 12:00 AM CDT) Case Report Dermatopathology Report Case: [id number] Authorizing Provider: Kat Luna MD Collected: 02/09/2019 12:00 AM Pathologist: Nichelle Strange MD Received: 02/10/2019 06:24 AM Specimens: A) - Skin, left yarsani B) - Skin, left medial calf 4:11 PM T DERMATOPATHOLOGY LABORATORY Final Diagnosis Specimen A. SKIN, left yarsani: BASAL CELL CARCINOMA, NODULAR TYPE (C44.319) PRESENT AT MARGIN Specimen B. SKIN, left medial calf: BASAL CELL CARCINOMA, SUPERFICIAL MULTIFOCAL (C44.719) PRESENT AT MARGIN 4:11 PM T DERMATOPATHOLOGY LABORATORY at 1611 CDT Clinical History A-B: R/O BCC, irritated 4:11 PM T DERMATOPATHOLOGY LABORATORY Gross Description Specimen A: Received is one formalin filled container labeled with the patient's name and designated left yarsani. The specimen consists of a shave biopsy (2 pieces) measuring 9x6x1 and 10x6x1 mm. Jar 0. Specimen B: Received is one formalin filled container labeled with the patient's name and designated left medial calf. The specimen consists of a shave biopsy measuring 10x9x1 mm. Jar 0. 4:11 PM T DERMATOPATHOLOGY LABORATORY Microscopic Description Specimen A. SKIN, left yarsani: Within the dermis there are aggregates of basaloid cells with a high nuclear to cytoplasmic ratio and peripheral palisading. This lesion is present at the margin of the specimen. Specimen B. SKIN, left medial calf: Attached to the undersurface of the epidermis, there are small aggregates of basaloid cells with a high nuclear to cytoplasmic ratio and peripheral palisading. This lesion is present at the margin of the specimen. 4:11 PM T DERMATOPATHOLOGY LABORATORY Disclaimer An external and internal positive and negative controls are appropriate for the histochemical, immunohistochemical and immunofluorescence stain(s) in this case (if any), except where stated explicitly. The performance characteristics of the stain(s) cited in this report were developed and its performance characteristic determined by the Dermatopathology Laboratory at [facility], directed by Dr. Dolores Strange. These tests need not be, and therefore are not, approved by the [place] Food and Drug Administration. The tests are used for clinical purposes. Billing Codes Specimen Charges Stain Charges 29395 33682 1 1 04/18/201 9 4:11 PM CDT DERMATOPATHOLOGY LABORATORY Embedded Images 9 4:11 PM CDT DERMATOPATHOLOGY LABORATORY Pathology/Cytology TISSUE SPECIMEN FROM SKIN / Unknown 02/09/2019 02/10/2019 6:24 AM CDT Miscellaneous samples (specimen) TISSUE SPECIMEN FROM SKIN / Unknown 02/09/2019 02/10/2019 6:24 AM CDT Kat Luna MD LAB - PATHOLOGY/CYTOLOGY OR DERABLES Final Result DERMATOPATHOLOGY LABORATORY [facility] - Department of Dermatology [address] [place] [address], 5th Floor Lab [address] [phone] documented in this encounter Visit Diagnoses Not on filedocumented in this encounter Care Teams Administrative Personal Assistant Relationship Specialty Start Date End Date Scottie Williamson MD [facility] [phone] PCP - General Internal Medicine 09/22/13 documented as of this encounter
--- OUTSIDE RECORDS SUMMARY | 2025-03-31 13:05 | XMS_ITS | Encounter Summary ---
Author Organization [facility] Address [address] [place] [address] Phone Care Team Providers Care River Expedition Guide Name Role Phone Scottie Williamson MD Primary Care Provider Emily Blue MD Unavailable Kat Luna MD Unavailable [phone] Jose Diaz MD Unavailable [phone] Valente Torres MD Unavailable [phone] Heather Avila RN Unavailable Unavailable Thelma Brown MD Unavailable [phone] Encounter Details Date Type Department Care Team (Latest Contact Info) Description 11/22/2019 Orders Only [facility] Scanning, Provider Social History Tobacco Use Types Packs/Day Years Used Date Smoking Tobacco: Former Smokeless Tobacco: Never Sex and Gender Information Value Date Recorded Sex Assigned at Not on file 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 Gender Identity Not on file Sexual Orientation Straight 12/31/2019 9: 09 AM GENERATOR OPERATOR STRAIGHT BEVEL GEAR documented as of this encounter Plan of Treatment Not on file documented as of this encounter Procedures Procedure Name Priority Date/Time Associated Diagnosis Comments SCAN - LABS 11/22/2019 documented in this encounter Results * SCAN - LABS (11/22/2019) us Provider Scanning Final Result documented in this encounter Visit Diagnoses Not on filedocumented in this encounter Additional Health Concerns Infection Onset Date Last Indicated Resolved Time COVID: Suspected 07/02/2024 07/02/2024 07/02/2024 12:21 PM CDT Rhino/Enterovirus 07/02/2024 07/02/2024 07/09/2024 3:05 AM CDT documented as of this encounter Care Teams River Expedition Guide Relationship Specialty Start Date End Date Scottie Williamson MD [address] [facility] [address] [place] [address] PCP - General Internal Medicine 03/03/19 Emily Blue MD [address] [place] [address] Fellow Pulmonary Disease 10/16/21 Kat Luna MD [address] [place] [address] Referring Physician Dermatology 10/16/21 Jose Diaz MD [address] [place] [address] Referring Physician Pulmonary Disease 10/16/21 Valente Torres MD [address] [facility] DEPT OTOLARYNGOLOGY, [address] [address] Referring Physician Otolaryngology 02/07/22 Heather Avila, RN Registered Nurse 05/02/22 02/03/25 Thelma Brown MD Medical Oncologist/Holistic Health Practitioner Medical Oncology 01/14/23 documented as of this encounter
--- OUTSIDE RECORDS SUMMARY | 2025-03-31 13:05 | XMS_ITS | Encounter Summary ---
Author Organization [facility] Address [address] [facility] [place] [address] Care Team Providers Care Qc Scientist Name Role Phone Scottie Williamson MD Primary Care Provider + Encounter Details Date Type Department Care Team (Late st Contact Info) Description 06/10/2018 Lab Requisition [facility] Care DermPath Lab [address] [facility] [place] [phone] Kat Luna MD [address] 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 Gender Identity Not on file Sexual Orientation Not on file documented as of this encounter Plan of Treatment Not on file documented as of this encounter Procedures Procedure Name Priority Date/Time Associated Diagnosis Comments DERMATOPATH TECHNICAL REPORT Routine 06/09/2018 12:00 AM CDT documented in this encounter Results * DERMATOPATH TECHNICAL REPORT (06/09/2018 12:00 AM CDT) Case Report Dermatopathology Report Case: [id number] Authorizing Provider: Kat Luna MD Collected: 06/09/2018 12:00 AM Pathologist: Tammy Rivas MD Received: 06/10/2018 06:36 AM Specimen: Skin, left forearm 11:42 AM CDT DERMATOPATHOLOGY LABORATORY Clinical History BCC, bx proven. Check margins. Previous Bx: [id number]. 11:42 AM CDT DERMATOPATHOLOGY LABORATORY Gross Description Specimen A: Received is one formalin filled container labeled with the patient's name and designated left forearm. The specimen consists of a non-oriented ellipse of skin measuring [id number]. The epidermal surface is unremarkable. The margin is inked green. The 12 o'clock and 6 o'clock tips are submitted in cassette 1. The remainder of the ellipse is serially sectioned and submitted in cassettes 2-3. Jar 0. [facility] Dermatopathology Laboratory performed the technical component only. 11:42 AM CDT DERMATOPATHOLOGY LABORATORY Embedded Images 11:42 AM CDT DERMATOPATHOLOGY LABORATORY DISCLAIMER An external and internal positive and negative controls are appropriate for the histochemical, immunohistochemical and immunofluorescence stain(s) in this case (if any), except where stated explicitly. The performance characteristics of the stain(s) cited in this report were developed and its performance characteristic determined by the Dermatopathology Laboratory at [facility]. These tests need not be, and therefore are not, approved by the [place] Food and Drug Administration. The tests are used for clinical purposes. 11:42 AM T DERMATOPATHOLOGY LABORATORY at 1142 CDT Pathology/Cytolog y TISSUE SPECIMEN FROM SKIN / Unknown 06/09/2018 06/10/2018 6:36 AM CDT us Kat Luna MD LAB - PATHOLOGY/CYTOLOGY OR DERABLES Final Result DERMATOPATHOLOGY LABORATORY [facility] - Department of Dermatology [address] [facility], 5th [place] [address], [facility] [phone] documented in this encounter Visit Diagnoses Not on filedocumented in this encounter Care Teams Qc Scientist Relationship Specialty Start Date End Date Scottie Williamson MD [address] [place] [phone] PCP - General Internal Medicine 09/22/13 documented as of this encounter
--- OUTSIDE RECORDS SUMMARY | 2025-03-31 13:05 | XMS_ITS | Continuity of Care Document ---
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 Role Phone Sergey Coronel MD Unavailable Kaye vailable Allergies, Adverse Reactions, Alerts Substance Reaction Status Criticality No Known Allergies Active No Inform ation Medications Medication Instructions Dosage Effective Dates (start - stop) Status Comments meloxicam 15 mg tablet take 1 tablet by oral route every day 15 MG - Active nifedipine ER 60 mg tablet,extended release TAKE 1 TABLET BY MOUTH TWICE A DAY - Active famotidine 20 mg tablet take 1 tablet by oral route every 12 hours 20 MG - Active aspirin 81 mg chewable tablet take 1 tablet by oral route every day - Active prednisone 5 mg tablet take 1 Tablet by oral route every day 1 Tablet - Active Procedures Procedure Date MED LIST DOCD IN RCRD Pt inelig neg scrn depres FALL RISK ASSESSMENT DOC'D OFFICE [id number] BODY MASS INDEX DOCD SYST BP LT 130 MM HG DIAST BP < 80 MM HG FALL RISK ASSESSMENT DOC'D PRES/ABSN URINE INCON ASSESS Admin influenza virus vac RIV3 VACCINE NO PRESERV IM Covid Vaccine Admin, Single Dose 2023 Pfizer Comirnaty tri-sucrose COVID Vacci ne 30 mcg/ OFFICE [id number] BODY MASS INDEX DOCD SYST BP GE 130 - 139MM HG DIAST BP < 80 MM HG Pt inelig neg scrn depres FALL RISK ASSESSMENT DOC'D PRES/ABSN URINE INCON ASSESS Admin influenza virus vac Flu Vac, quad (RIV4), Preservative And A ntibiotic Free IM OFFICE [id number] BODY MASS INDEX DOCD SYST BP LT 130 MM HG DIAST BP < 80 MM HG Pt inelig neg scrn depres OFFICE [id number] BODY MASS INDEX DOCD SYST BP LT 130 MM HG DIAST BP < 80 MM HG FALL RISK ASSESSMENT DOC'D PRES/ABSN URINE INCON ASSESS OFFICE [id number] BODY MASS INDEX DOCD SYST BP LT 130 MM HG DIAST BP < 80 MM HG DSCHRG MED/CURRENT MED MERGE OFFICE [id number] BODY MASS INDEX DOCD SYST BP GE 130 - 139MM HG DIAST BP < 80 MM HG DSCHRG MED/CURRENT MED MERGE DSCHRG MED/CURRENT MED MERGE FALL RISK ASSESSMENT DOC'D PRES/ABSN URINE INCON ASSESS OFFICE [id number] BODY MASS INDEX DOCD SYST BP LT 130 MM HG DIAST BP < 80 MM HG Antibody; COVID-19 Leandro-29-2021 ROUTINE VENIPUNCTURE FALL RISK ASSESSMENT DOC'D PRES/ABSN URINE INCON ASSESS Pt inelig neg scrn depres PPPS, subseq visit BODY MASS INDEX DOCD SYST BP GE 130 - 139MM HG DIAST BP < 80 MM HG Pt inelig neg scrn depres FALL PLAN OF CARE DOC'D URINE INCON PLAN DOC'D PRES/ABSN URINE INCON ASSESS OFFICE [id number] BODY MASS INDEX DOCD SYST BP LT 130 MM HG DIAST BP < 80 MM HG FALL PLAN OF CARE DOC'D URINE INCON PLAN DOC'D PRES/ABSN URINE INCON ASSESS OFFICE [id number] BODY MASS INDEX DOCD SYST BP LT 130 MM HG DIAST BP < 80 MM HG Advance Directives Directive Yes / No Effective Date File Name Life Support Not Answered N/A N/A Intubation Not Answered N/A N/A Antibiotics Not Answered N/A N/A IV Fluid Support Not Answered N/A N/A Tube Feed Not Answered N/A N/A Other Directive N/A N/A WARNING:The information contained in this section is historical and is provided for information only and does not constitute a legal document or any assurance that the information is still accurate. Please verify the information with the sims of the legal document before using it for clinical purposes. Encounters Encounter Description Practice Location Reason(s) For Visit Diagnoses Date Provider Providers Copied on Encounter [employer], [address], [place], [place], [address] , [place] tel:[phone] [facility] Pain, joint, knee, right February- 5 Homer Pedersen. [address], [place], [place], [address], [place]. tel:[phone] [employer], [address], [place], [place], [address] , [place] tel:[phone] [facility] Evaluation of hearing impairment Apr-0 - 5 Homer Pedersen. [address], [address], [place], [place], [address], [place]. tel:[phone] Referring Provider: Sergey rucker, [address], [place], [address] . tel:[phone] [facility], [address], [place], [place], [address] , [place] tel: [phone] [facility] No Information Dec-3 - 5 Homer Pedersen. [address], [address], [place], [place], [address], [place]. tel:[phone] Referring Provider: Sergey rucker, [address], [place], [address] . tel:[phone] OFFICE GXRJB-NFE-GM [facility], [address], [place], [place], [address] , [place] tel: [phone] [facility] acute visit (chief complaint) Vaccine counselingTendini tis of right kneeBorderline osteopeniaRaynaud 's syndrome without gangreneBody mass index [BMI] 32.0-32.9, adult Mar-2 - 5 Homer Pedersen. [address], [address], [place], [place], [address], [place]. tel:[phone] Referring Provider: Sergey rucker, [address], [place], [address] . tel:[phone] [facility], [address], [place], [place], [address] , [place] tel:[phone] [facility] No Information Nov-0 4 Homer Pedersen. [address], [address], [place], [place], [address], [place]. tel:[phone] [facility]ICE [facility], [address], [place], [place], [address] , tel: [phone] [facility] Chronic Conditions (chief complaint)M edicare preventive (chief complaint) Essential (primary) hypertensionIdiop athic pulmonary fibrosisAtheroscl erosis of aortaRaynaud's syndrome without gangreneGastro-es ophageal reflux disease without esophagitisMerkel cell carcinoma of scalp and neckBody mass index [BMI] 31.0-31.9, adultJoint stiffnessCataract of both eyes, unspecified cataract typeEncntr for general adult medical exam w/o abnormal findings 4 Homer Pedersen. [address] [place] [address], [address], [address], [place]. tel:[phone] Referring Provider: Sergey rucker, [address] [place] [address], [place], [address] . tel:[phone] OFFICE [facility], [address], [place], [place], [address] , [place] tel: [phone] [facility] Chronic Conditions (chief complaint) Essential (primary) hypertensionIdiop athic pulmonary fibrosisRaynaud's syndrome without gangreneGastro-es ophageal reflux disease without esophagitisMerkel cell carcinoma of scalp and neckEncounter for immunizationLow back pain, unspecifiedBody mass index [BMI] 31.0-31.9, adult Sep- 3 Emmett Perez. [address], [facility] [address], [place], [place], [address], [place]. tel:[phone] Referring Provider: Scottie Williamson , [address] [place] [address], [place], [address] . tel:[phone] OFFICE [facility]RA[facility]PEQ[facility], [address], [place], [place], [address] , [place] tel: [phone] [facility] Chronic Conditions (chief complaint) Body mass index [BMI] 31.0-31.9, adultEssential (primary) hypertensionIdiop athic pulmonary fibrosisAtheroscl erosis of aorta 3 Clay Rubin. [address] [place] [address], [place], [place], [address], [place]. tel:[phone] Referring Provider: Scottie Williamson , [address] [place] [address], [place], [address] . tel:[phone] OFFICE GNIOT-BSY-UT [facility], [address], [place], [place], [address] , [place] tel:[phone] [facility] Chronic Conditions (chief complaint) Idiopathic pulmonary fibrosisBenign essential hypertension 2 Clay Rubin. [address] [place] [address], [place], [place], [address], [place]. tel:[phone] Referring Provider: Scottie Williamson , [address] [place] [address], [place], [address] . tel:[phone] OFFICE OGLSP-XHN-YW [facility], [address], [place], [place], [address] , [place] [phone] [facility] Hospital Follow-Up (chief complaint)C hronic Conditions (chief complaint) Body mass index [BMI] 31.0-31.9, adultBenign essential hypertensionAther osclerosis of aortaIdiopathic pulmonary fibrosisLung mass 2 Clay Rubin. [address] [place] [address], [place], [place], [address], [place]. tel:[phone] Referring Provider: Scottie Williamson , [address] [place] [address], [place], [address] . tel:[phone] [facility], [address], [place], [place], [address] , [place] [phone] [facility] No Information 2 Clay Rubin. [address] [place] [address], [place], [place], [address], . tel:[phone] Referring Provider: Scottie Williamson , [address] [place] [address], [place], [address] . tel:[phone] [facility], [address], [place], [place], [address] , tel: [phone] [facility] No Information 2 Clay Rbuin. [address] [place] [address], [place], [place], [address], [place]. tel:[phone] Referring Provider: Scottie Williamson , [address] [place] [address], [place], [address] . tel:[phone] OFFICE VPWJK-UIV-NF [facility], [address], [place], [place], [address] , tel: [phone] [facility] follow up (chief complaint)D izziness (chief complaint)C hronic Conditions (chief complaint) Body mass index (BMI) 30.0-30.9, adultBenign paroxysmal positional vertigo, unspecified lateralityBenign essential hypertensionAther osclerosis of aortaIdiopathic pulmonary fibrosis 1 Clay Rubin. [address] [place] [address], [place], [place], [address], . tel:[phone] Referring Provider: Scottie Williamson , [address] [place] [address], [place], [address] . tel:[phone] [facility], [address], [place], [place], [address] , [place] tel:[phone] [facility] No Information 1 Clay Rubin. [address] [place] [address], [place], [place], [address], [place]. tel:[phone] [facility], [address], [place], [place], [address] , tel:[phone] [facility] No Information 1 Benita Mendieta. [address] [place] [address], [facility] [address], [place], [place], [address]. tel:[phone] [facility], [address], [place], [place], [address] , tel: [phone] [facility] Medicare preventive (chief complaint)C hronic Conditions (chief complaint) Body mass index (BMI) 29.0-29.9, adultEncounter for general adult medical examination without abnormal findingsBenign essential hypertensionAther osclerosis of aortaIdiopathic pulmonary fibrosisRaynaud's syndrome without gangrene 0 Clay Rubin. [address] [place] [address], [place], [place], [address], . tel:[phone] Referring Provider: Scottie Williamson , [address] [place] [address], [place], [address] . tel:[phone] OFFICE IJAPH-BGC-ND [facility], [address], [place], [place], [address] , tel: [phone] [facility] Chronic Conditions (chief complaint) Interstitial pulmonary disease, unspecifiedRaynau d's disease without gangreneBenign essential hypertensionAther osclerosis of aortaSS-A antibody positiveBody mass index (BMI) 30.0-30.9, adultGastro-esoph ageal reflux disease without esophagitis 9 Emmett Perez. [address] [place] [address], [address], . tel:[phone] Referring Provider: Scottie Williamson , [address] [place] [address], [place], [address] . tel:[phone] [facility], [address], [place], [place], [address] , tel:[phone] [facility] No Information 9 Clay Rubin. [address] [place] [address], [place], [place], [address], . tel:[phone] OFFICE WWYZQ-YGG-VH [facility], [address], [place], [place], [address] , [place] tel: [phone] [facility] follow up (chief complaint)C hronic Conditions (chief complaint) Essential (primary) hypertensionInter stitial pulmonary disease, unspecifiedEncoun ter for screening for osteoporosisAther osclerosis of aorta 9 Clay Rubin. [address] [place] [address], [place], [place], [address], [place]. [phone] Referring Provider: Scottie Williamson , [address] [place] [address], [place], [address] . tel:[phone] [facility], [address], [place], [place], [address] , [place] tel: [phone] [facility] Chronic Conditions (chief complaint) Raynaud's disease without gangreneElevated antinuclear antibody (EL) levelEssential (primary) hypertensionShort ness of breathBody mass index (BMI) 30.0-30.9, adult Apr-3 0-201 9 Emmett Perez. [address] [place] [address], [place] [address], [place], [place], [address], [place]. tel:[phone] Referring Provider: Scottie Williamson , [address] [place] [address], [place], [address] . tel:[phone] [facility], [address], [place], [place], [address] , [place] tel: [phone] [facility] Dyspnea on exertionRaynaud's disease without gangreneElevated antinuclear antibody (EL) level 9 Clay Rubin. [address] [place] [address], [place] [address], [place], [place], [address], [place]. tel:[phone] [facility], [address], [place], [place], [address] , [place] tel: [phone] [facility] Elevated antinuclear antibody (EL) levelRaynaud's disease without gangreneDyspnea on exertion 0 8-201 9 Emmett Perez. [address], [address], [place]. tel:[phone] [facility], [address], [place], [place], [address] , [place] tel: [phone] [facility] Essential (primary) hypertensionShort ness of breathOther specified systemic involvement of connective tissue Apr-0 1-201 9 Clay Rubin. [address] [place] [address], [place], [address], [place]. tel:[phone] Referring Provider: Scottie Williamson , [address] [place] [address], [place], [address] . tel:[phone] [facility], [address], [place], [place], [address] , [place] tel: [phone] [facility] Body mass index (BMI) 30.0-30.9, adultEssential (primary) hypertensionShort ness of breathLightheaded Raynaud's disease without gangreneOther specified systemic involvement of connective tissue Dec-2 8-201 9 Emmett Perez. [address] [place] [address], [address], [place]. tel:[phone] Referring Provider: Scottie Williamson , [address] [place] [address], [place], [address] . tel:[phone] [facility], [address], [place], [place], [address] , [place] tel: [phone] [facility] Personal history of colonic polyps 3- 9 Clay Rubin. [address] [place] [address], [place], [address], [place]. tel:[phone] [facility], [address], [place], [place], [address] , [place] tel: [phone] [facility] No Information 0 5 8 Clay Rubin. [address] [place] [address], [place], [place], [address], [place]. tel:[phone] [facility], [address], [place], [place], [address] , [place] tel: [phone] [facility] Right-sided chest painDyspnea on exertion 8 Clay Rubin. [address] [place] [address], [place], [place], [address], [place]. tel:[phone] [facility], [address], [place], [place], [address] , [place] tel: [phone] [facility] Body mass index (BMI) 31.0-31.9, adultRight-sided chest painElevated serum globulin level 8 Emmett Perez. [address] [place] [address], [address], [address], [place]. tel:[phone] Referring Provider: Scottie Williamson , [address] [place] [address], [place], [address] . tel:[phone] [facility], [address], [place], [place], [address] , [place] tel: [phone] [facility] Body mass index (BMI) 31.0-31.9, adultImmunization counselingFatigue , unspecified typeElevated serum globulin levelBenign essential hypertension 8 Clay Rubin. [address] [place] [address], [place], [place], [address], [place]. tel:[phone] Referring Provider: Scottie Williamson , [address] [place] [address], [place], [address] . tel:[phone] [facility], [address], [place], [place], [address] , [place] tel: [phone] [facility] Body mass index (BMI) 31.0-31.9, adultChest discomfortCoughAt herosclerosis of aorta 8 Clay Rubin. [address] [place] [address], [facility] [address], [place], [place], [address], [place]. tel:[phone] Referring Provider: Scottie Williamson , [address] [place] [address], [place], [address] . tel:[phone] [facility], [address], [place], [place], [address] , [place] tel:[phone] [facility] Cough 8 Phu Tobar. [address] [place] [address], [address], [place]. tel:[phone] Referring Provider: Scottie Williamson , [address] [place] [address], [place], [address] . tel:[phone] [facility], [address], [place], [place], [address] , [place] tel:[phone] [facility] Pre-ulcerative calluses Clay Rubin. [address] [place] [address], [place], [place], [address], [place]. tel:[phone] [facility], [address], [place], [place], [address] , [place] tel:[phone] [facility] No Information Clay Rubin. [address] [place] [address], [place], [address], [place]. tel:[phone] [facility], [address], [place], [address] , [place] tel:[phone] [facility] Encounter for general adult medical examination without abnormal findingsEssential (primary) hypertensionGastr o-esophageal reflux disease without esophagitisFormer smokerScreening for abdominal aortic aneurysmEncounter for screening for lung cancerElevated glucose levelSkin cancer, basal cell 7 Emmett Perez. [address] [place] [address], [address], [place]. tel:[phone] Referring Provider: Scottie Williamson [address], [place], [address] . tel:[phone] [facility], [address], [place], [place], [address] , tel: [phone] [facility] No Information 0 6 Clay Rubin. [address] [place] [address], [facility] [address], [place], [place], [address], [place]. tel:[phone] [facility], [address], [place], [place], [address] , [place] tel: [phone] [facility] Encounter for general adult medical examination without abnormal findingsEssential (primary) hypertensionGastr o-esophageal reflux disease without esophagitisFatigu e, unspecified typeCervicalgia Jan- 6 Emmett Perez. [address] [place] [address], [place] [address], [place], [place], [address], [place]. tel:[phone] Referring Provider: Scottie Williamson , [address] [place] [address] [address], [place], [address] . tel:[phone] [facility], [address], [place], [place], [address] , [place] tel: [phone] [facility] No Information 5 Clay Rubin. [address] [place] [address], [place] [address], [place], [place], [address], [place]. tel:[phone] [facility], [address], [place], [place], [address] , [place] tel: [phone] [facility] Gastritis February- 5 Emmett Perez. [address] [place] [address], [place], [place], [address], [place]. tel:[phone] [facility], [address], [place], [address] , tel: [phone] [facility] Gastritis Jan- 5 Emmett Perez. [address] [place] [address] [address], [place], [place], [address], [place]. tel:[phone] Referring Provider: Scottie Williamson , [address] [place] [address], [place], [address] . tel:[phone] [facility], [address], [place], [place], [address] , [place] tel: [phone] [facility] Actinic keratoses 4 Clay Rubin. [address] [place] [address], [place], [place], [address], [place]. tel:[phone] [facility], [address], [place], [place], [address] , [place] tel: [phone] [facility] Benign essential hypertensionHx of skin cancer, basal cellLUMBAGOESOPHA GEAL REFLUXJOINT PAIN-L/LEGFlu vaccine need 4 Emmett Perez. [address] [place] [address], [address], [place]. tel:[phone] Referring Provider: Scottie Williamson , [address] [place] [address], [place], [address] . 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 [address] [place] [address], [place], [place], [address], [place]. tel:[phone] [facility], [address], [place], [address] , [place] tel: [phone] [facility] Actinic keratosesHx of skin cancer, basal cell Jan- 4 Clay Rubin. [address] [place] [address], [place], [place], [address], [place]. tel:[phone] [facility], [address], [place], [address] , [place] tel: [phone] [facility] No Information 3 Clay Rubin. [address] [place] [address], [place], [address], [place]. [phone] [facility], [address], [place], [address] , [place] tel: [phone] [facility] Benign essential hypertensionSpeci al screening for malignant neoplasms, colonNeed for prophylactic vaccination and inoculation against streptococcus pneumoniae [pneumococcus] 3 Clay Rubin. [address] [place] [address], [place], [place], [address], [place]. tel:[phone] Referring Provider: Scottie Williamson , [address] [place] [address], [place], [address] . tel:[phone] [facility], [address], [place], [place], [address] , [place] tel: [phone] [facility] Routine [facility] facilityBenign essential hypertension 2 Clay Rubin. [address] [place] [address], [place], [place], [address], [place]. tel:[phone] Referring Provider: Sctotie Williamson , [address] [place] [address], [place], [address] . tel:[phone] [facility], [address], [place], [place], [address] , [place] tel: [phone] [facility] Skin lesions, generalized Jan- 2 Garret Renetta. [address] [place] [address], [place], [address]. [phone] Referring Provider: Scottie Williamson , [address] [place] [address], [place], [address] . tel:[phone] [facility], [address], [place], [address] , [place] tel: [phone] [facility] NEED FOR PROPHYLACTIC VACCINATION WITH COMBINED DIPHTHERIA-TETANU S-PERTUSSIS (DTP) (DTAP) VACCINE 1 Clay Rubin. [address] [place] [address], [place], [place], [address], . tel:[phone] Referring Provider: Scottie Williamson , [address] [place] [address], [place], [address] . tel:[phone] [facility], [address], [place], [place], [address] , [place] tel: [phone] [facility] Disturbance of skin sensation 1 Clay Rubin. [address] [place] [address], [place], [place], [address], [place]. tel:[phone] Referring Provider: Scottie Williamson , [address] [place] [address], [place], [address] . tel:[phone] [facility], [address], [place], [place], [address] , [place] tel: [phone] [facility] BENIGN HYPERTENSION 0 Clay Rubin. [address] [place] [address], [place], [place], [address], [place]. tel:[phone] [facility], [address], [place], [place], [address] , tel: [phone] [facility] ESOPHAGEAL REFLUX 0 Junito Carpio. [address] [facility], [place], [place], [address]. tel:[phone] [facility], [address], [place], [address] , [place] tel: [phone] [facility] BPH LOC W/O UR OBS/LUTS Dec-0 4-200 9 Clay Rubin. [address] [place] [address], [place] [address], [place], [place], [address], . tel:[phone] [facility], [address], [place], [place], [address] , [place] tel: [phone] [facility] LUMBAGO 8 Conversion Doctor. [address] [facility], [place], [address], [place]. [facility], [address], [place], [place], [address] , [place] tel: [phone] [facility] Medicine SCRN MALIG NEOP-PROSTATE 8 Clay Rubin. [address] [place] [address], [facility], [place], [place], [id number], [place]. tel:[phone] [facility], [address], [place], [place], [address] , [place] tel: [phone] [facility] ROUTINE MEDICAL EXAM 7 Clay Rubin. [address] [place] [address], [place] [address], [place], [place], [id number], [place]. tel:[phone] [facility], [address], [place], [place], [id number] , [place] tel: [phone] [facility] URINARY HESITANCYURINARY FREQUENCY 7 Clay Rubin. [address] [place] [address], [place] [address], [place], [place], [address], [place]. tel:[phone] [facility], [address], [place], [place], [address] , [place] tel: [phone] [facility] URIN TRACT INFECTION NOS 7 Junito Shirin. [address] [facility], [place], [place], [id number]. tel:[phone] [facility], [address], [place], [place], [address] , [place] tel: [phone] [facility] VACCIN FOR INFLUENZA 7 Clay Rubin. [address] [place] [address], [place] [address], [place], [place], [address], [place]. tel:[phone] [facility], [address], [place], [place], [address] , [place] tel: [phone] [facility] DIZZINESS AND GIDDINESS 6-200 6 Clay Rubin. [address], [place] [address], [place], [place], [address], [place]. tel:[phone] [facility], [address], [place], [place], [address] , tel: [phone] [facility] IMPOTENCE, ORGANIC ORIGN Mar- 0-200 5 Clay Rubin. [facility], [facility] [address], [place], [place], [address], [place]. tel:[phone] [facility], [address], [place], [place], [address] , tel: [phone] [facility] JOINT PAIN-L/LEG 3-200 2 Clay Rubin. [address] [place] [address], [place] [address], [place], [place], [address], [place]. tel:[phone] [facility], [address], [place], [place], [address] , tel: [phone] [facility] TOBACCO USE DISORDER 6-200 0 Clay Rubin. [address] [place] [address], [place] [address], [place], [place], [address], [place]. tel:[phone] Family History Family Member Type Diagnosis Age At Onset Father Problem (finding) Brain tumor Mother Problem (finding) osteoarthritis Sister Problem (finding) Brain tumor Immunizations Vaccine Date Status Comments RSV (Arexvy), preF, recombinant, adjuvanted vaccine, 120 mcg/0.5 mL administered Source: Other Pr ovider Flublok, Trivalent, preservative free, 18+ yrs, 0.5mL dosage administered Source: New Immuniza tion Record Maicoin Comirnaty COVID vaccine, nely-sucrose, 30mcg/0.3mL dose, 12 years and older administered Source: New Immuniza tion Record Flublok, quadrivalent, preservative free, 0.5mL dosage administered Source: New Immuniza tion Record Fluzone High-Dose, high dose , preservative free administered Note: [facility] ; Source: Other Registry Fluzone High-Dose, high dose , preservative free administered Note: [facility] ; Source: Other Provider Pfizer (Diluent Reconstitute d) COVID19 Vaccine, 0.3mL per dose, 2 doses, administered 21 days apart administered Source: Other Provid er Pfizer-BioNTech COVID19 Vaccine, 0.3mL per dose, 2 doses, administered 21 days apart administered Source: Other Regist ry Pfizer-BioNTech COVID19 Vaccine, 0.3mL per dose, 2 doses, administered 21 days apart administered Source: Other Regist ry Fluzone High-Dose, high dose , preservative free administered Note: [facility] ; Source: Other Registry Fluzone High-Dose, high dose , preservative free administered Note: Ginger Benedict urce: Other Provider SHINGRIX (Zoster vaccine recombinant, adjuvanted) administered Note: Edgar ; Source: Other Provider Fluzone High-Dose, high dose , preservative free administered Note: Edgar ; Brigitte rce: Other Provider SHINGRIX (Zoster vaccine recombinant, adjuvanted) administered Note: lilia ; Brigitte rce: Other Provider Fluzone Quad [id number], spli t virus, 0.5mL dosage administered Note: Edgar ; Brigitte rce: Other Provider Pneumococcal conjugate PCV 13 administere d Note: Edgar ; Source: Other Provider Influenza, high dose seasonal administere d Note: Edgar ; Source: Other Provider Influenza, high dose seasonal administere d Note: Edgar ; Source: Other Provider Influenza, seasonal, injectable (3 yrs or older) administered Source: New Immunization Record Fluzone administered Source: New Imm unization Record Pneumo (2 yrs or older) (PPV23) administered Source: New Immuniza tion Record Zoster administered Source: Other P rovider Tdap (Adacel r) administered Source: New Immunization Record Flu (split) (3 yrs or older) administered Source: New Immunization Record 46510 - Influenza administered Source: Marichuy christianson Unspecified Payers Payer name Insurance type Covered democrat ID John Paul jimenez(s) [employer] PPO MB [id number] [employer] MB [id number] [employer] MB [id number] Social History Type Description Quantity Date Captured Comments Alcohol Use Details Unknown Caffeine Use Details Unknown Tobacco Use Status No Information Smoking Status No Information Sex Male Sexual Orientation Straight or heterosexual Gender Identity Male Chief Complaint And Reason For Visit No Information Reason For Referral Reason For Referral No Information Plan Of Treatment Date Type Action Status Goal Dietary manageme nt education, guidance, and counseling completed Goal Dietary manageme nt education, guidance, and counseling completed Goal Dietary manageme nt education, guidance, and counseling completed Goal Dietary manageme nt education, guidance, and counseling completed Goal Dietary manageme nt education, guidance, and counseling completed Goal Dietary manageme nt education, guidance, and counseling completed Goal Dietary manageme nt education, guidance, and counseling completed Goal Dietary manageme nt education, guidance, and counseling completed Referral Referred To: [address] [place] [address], [address] [phone] Ordered: X-RAY EXAM OF KNEE, COMPLETE (4+ VIEWS) Bilateral Right ordered Referral Referred To: [address] [place] [address], [address] [phone] Ordered: Hearing examination ordered Referral Ordered: DEXA of spine and hip ordered Patient Education Shoulder Separ ation: Rehab Exercises completed Patient Education Knee: Exercises complet ed Future Order: Radiology Order US for abdominal aortic aneurysm (AAA) screening (11726), Sent on: Sent Future Order: Radiology Order AB I (ankle brachial index) Bilateral extremities (00151), Body Site: extremities, Sent on: Sent History Of Present Illness Encounter Date Complaint History Of Tai nt Illness acute visit 79-year-old male presents to the clinic for an acute visit due to complaints of severe right leg pain when walking. He reported that it has been ongoing for 10 days. Unable to bear weight. He feels his leg is thick and stiff.Chart review, no past history of orthopedic evaluation. A bone density scan was done in 2022 which revealed osteopenia. 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 He states he typically does more than that weight. He feels tightness in his posterior knee. It has been improving. Pain is worse with ambulation. No pain at rest. No radiating pain down the lower extremity. Primarily focused on the posterior medial knee. Chronic Conditions *See Chronic Conditions HPI Medicare preventive Cognitive St atus: (Cognitive status has not changed) on 08/27/2024. The ''Up and Go'' test took less than 30 seconds andthe patient does not need help with activities of daily living. The patient is not at risk for falls. The patient has not fallen in the last year. The fall(s) did not result in injury. Patient's activity level is moderate. Patient exercises 2-3 times/week. The patient has smoke detectors, carbon monoxide detectors, gas heating in the home. The patient does not have firearms in the home. Patient's home has not been tested for radon. Patient reports using a seatbelt in vehicles. Patient reports a healthy diet. Patient reports recent weight loss of 2 lbs, 0.91 kgs over 1 Year 2 Months. Patient does not take calcium. Patient reports not taking Vitamin D. Patient does not take a multivitamin. Patient does not take folic acid. Relevant history is positive for alcohol use. Relevant history is negative for passive vaping exposure. Patient is a former tobacco user. Chronic Conditions *See Chronic Conditions HPI Chronic Conditions *See Chronic Conditions [facility] Chronic Conditions *See Chronic Conditions [facility] Hospital Follow-Up The patient w as seen today for a hospital follow-up visit. Details regarding this most recent admission include: 76-year-old man here for follow-up after hospitalization following thoracotomy for lung mass. Patient discharged December 04. He reports very little pain from his thoracotomy. His final pathology report is still pending. He followed instructions it did not take nifedipine at home but his blood pressure valeria and I recommended he take it once a day. His blood pressure remains fluctuate with some readings greater than 150. Overall he feels relatively well. He is an appointment with his cardiothoracic surgeon later this week to discuss the pathology report Chronic Conditions *See Chronic Conditions [facility] Dizziness Onset was 5 to 6 days ago. The problem is acute. The patient describes it as (an) imbalance and unstable horizon. Pertinent negatives include diplopia, ear drainage, fever, hearing loss, incoordination, nausea, otalgia, slurred speech, tinnitus and vomiting. Chronic Conditions *See Chronic Conditions [facility] follow up Chronic Conditions *See Chronic Conditions [facility] Medicare preventive A Health Ris k Assessment has been performed and reviewed. The patient has not felt depressed and has had interest and pleasure doing things recently. The ''Up and Go'' test took less than 30 seconds and the patient does not need help with activities of daily living. The patient is not at risk for falls. The patient has not fallen in the last year. The fall(s) did not result in injury. Patient's activity level is moderate. Patient exercises 2-3 times/week. The patient has smoke detectors, carbon monoxide detectors, gas heating in the home. The patient does not have firearms in the home. Patient's home has not been tested for radon. Patient reports using a seatbelt in vehicles. Patient reports a healthy diet. Patient does not take calcium. Patient reports not taking Vitamin D. Patient does not take a multivitamin. Patient does not take folic acid. Relevant history is positive for alcohol use. Relevant history is negative for passive vaping exposure and passive smoke exposure. Patient is a former tobacco user. Screening services were reviewed, no changes made. Chronic Conditions *See Chronic Conditions HPI Chronic Conditions *See Chronic Conditions HPI follow up Chronic Conditions *See Chronic Conditions HPI Functional Status Date Functional Assessmen t No Information Instructions Date Instruction Additional Infor rox No vascular changes on examinati on Related to Raynaud's syndrome without gangrene Evidence of osteopen ia in the bone scan from 2022. Continue with exerciseOkay to take calcium and vitamin D supplements over the counter Related to Borderline osteopenia I recommend Meloxica m 15 mg a day as needed for painContinue with your exercises but reduce the weights on the kneeAllow time 6-8 weeks for tendon inflammation to heal This is not a blood clot, there is no sign of infection, I do not suspect any bone pathologyIf no improvement by March, I recommend an MRI of the right knee Related to Tendinitis of right knee I recommend RSV vaccine Related to Vaccine counseling Dietary management e ducation, guidance, and counseling Related to Body mass index (BMI) 32.0-32.9, adult We have reviewed his EKG and labs. Echocardiogram was unremarkable in 2018. The patient is medically cleared to under cataract surgery as planned. Related to Cataract of both eyes, unspecified cataract type Continue to follow w ith your tax services manager. 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 I'd recommend stretching before any lifting exercise. Related to Joint stiffness Dietary management e ducation, guidance, and counseling Related to Body mass index (BMI) 31.0-31.9, adult Counseled on weight reduction Report any changes to the office . Related to Low back pain, unspecified FLU vaccine given to day. Please apply ice to the injection site as needed for pain. You may take Tylenol, per package directions for pain as well.Please report any reaction to the office immediately.I recommend you receive the update Covid vaccine. This is available through your pharmacy. Related to Encounter for immunization Continue per specialists. 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 Examples are citrus fruits, soda, heavily seasoned foods and tomato based products.Report uncontrolled symptoms that occur 2 or more times per week.Use TUMS for breakthrough symptoms. Related to Gastro-esophageal reflux disease without esophagitis Continue medications. Related to Raynaud's syndrome without gangrene Continue per Dr Campuzano. Relate d to Idiopathic pulmonary fibrosis Your blood pressure is controlled today.Please continue current medication regimen.Please call PCP or DENTURE PACKER for BP readings consistently above goal, 130/80 or higher. Do not add salt to your food. Use fresh herbs, lemon or Mrs Dash seasonings. When monitoring BP at home, check at least 2 hours after taking your high blood pressure medicine. Sit for 5 minutes first. Keep feet flat on floor. Do not talk when checking BP. Related to Essential (primary) hypertension Immunizations I recommend you cont inue current medication. Related to Atherosclerosis of aorta Your blood pressure is controlled today. Please continue your current diet, exercise regularly and take your medicine. Related to Essential (primary) hypertension You remain in the ca re of your communication spec. You remain on daily prednisone. I ordered a bone density. Please call [phone] to schedule a bone density of your spine and hip. Related to Idiopathic pulmonary fibrosis Dietary management e ducation, guidance, and counseling Related to Body mass index (BMI) 31.0-31.9, adult Your blood pressure is controlled today. Related to Benign essential hypertension You remain in the ca re of your lung specialist and under surveillance for you lung capacity. Related to Idiopathic pulmonary fibrosis Urinary Incontinence Fall Risk Prevention We are awaiting your pathology report for your lung mass. Related to Lung mass I recommend you cont inue current medication. Related to Atherosclerosis of aorta You remain on azathi oprine for you lung disease Related to Idiopathic pulmonary fibrosis I recommend you rest art nifedipine ER 60mg twice a day. Related to Benign essential hypertension Dietary management e ducation, guidance, and counseling Related to Body mass index (BMI) 31.0-31.9, adult We discussed your re cent visit to the [facility] and plan to do the CT scan.I ordered COVID spike protein antibody test today Related to Idiopathic pulmonary fibrosis I recommend you cont inue current medication. Related to Atherosclerosis of aorta Your blood pressure is controlled today.Please start taking your blood pressure medicine at night. Please check your BP at home once a week.Please call PCP or DENTURE PACKER for BP readings consistently above goal, 130/80 or higher. Do not add salt to your food. Use fresh herbs, lemon or Mrs Dash seasonings. Related to Benign essential hypertension I recommend you view the Tayler maneuver video and do the exercises daily to help recover from your vertigo. Related to Benign paroxysmal positional vertigo, unspecified laterality Dietary management e ducation, guidance, and counseling Related to Body mass index (BMI) 30.0-30.9, adult We discussed the eff ect of nifedipine for your finger blood vessel spasm Related to Raynaud's syndrome without gangrene We discussed your st able lung disease and course of therapy and follow-up Related to Idiopathic pulmonary fibrosis Your blood pressure is controlled today.Please continue current medicine. Please call our office for BP average above goal of 140/90Do not add salt to your food. Related to Benign essential hypertension I recommend you cont inue current medication. Related to Atherosclerosis of aorta We discussed prevent asya care, including recommendations made by the [place] Preventive Services Task Force appropriate for you. You are up to date on immunizations. Related to Encounter for general adult medical examination without abnormal findings Dietary management e ducation, guidance, and counseling Related to Body mass index (BMI) 29.0-29.9, adult Avoid concentrated s weets (including juice, sweet tea, and soda).Increase vegetable intake and whole fruit intake. Use the healthy plate guide: 1/2 plate of vegetables, 1/4 lean protein, 1/4 complex carbohydrates.Walk at least 30 minutes a day. Related to Body mass index (BMI) 30.0-30.9, adult Avoid spicy foods, a cidic foods and alcohol.Do not eat anything at least 1-2 hours before you go to bed.Elevate the head of your bed with pillows or using blocks under your bed frame. The goal is an incline of 4 inches. Take your controller medication daily.You may use TUMS as needed for breakthrough discomfort.If you experience symptoms more than 2-3x/week, please notify your PCP or DENTURE PACKER. Related to Gastro-esophageal reflux disease without esophagitis No more than 15grams of saturated fat daily.Increase fiber intake to 25 grams per day.Increase exercise to 30 minutes 4x/week. 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 Do not add salt to your food. Use fresh herbs, lemon or Mrs Dash seasonings. Related to Benign essential hypertension Continue per Dr Emily zhong and Dr Falk. Related to Interstitial pulmonary disease, unspecified Continue nifedipine. Related to Raynaud's disease without gangrene Dietary management e ducation, guidance, and counseling Related to Body mass index (BMI) 30.0-30.9, adult Disease process We discussed your ne w diagnosis and treatment for your lung disease. Related to Interstitial pulmonary disease, unspecified Your blood pressure is controlled today.Please continue current medicine. Please call our office for BP average above goal of 130/80 Do not add salt to your food. Use fresh herbs, lemon or Mrs Dash seasonings.Exercise Daily. Related to Essential (primary) hypertension Continue with pulmonary referral . Related to Shortness of breath Continue with referr al to rheumatology after pulmonary clinic visit.An alternative provider is:Dr Rosalie Elizaldel[address], [place], [place] [address]Jzghb: Related to Elevated antinuclear antibody (EL) level Your blood pressure is controlled today.Please continue current medication regimen.Please call PCP or DENTURE PACKER for BP readings consistently above goal, 130/80 or higher. Do not add salt to your food. Use fresh herbs, lemon or Mrs Dash seasonings. Related to Essential (primary) hypertension Please increase amlo dipine 5mg daily. You may take 2 of your 2.5mg tablets daily. When you refill this prescription, please verify you get the 5mg and return to 1 tablet daily.Please report any BP below 110/60. Related to Raynaud's disease without gangrene Urinary Incontinence Fall Risk Prevention Medication management Medication management Dietary management e ducation, guidance, and counseling Related to Body mass index (BMI) 30.0-30.9, adult Assessments Type Assessment Date assessment Pain, joint, knee, right 2024 Patient Care Teams Name Effective Dates (start - stop) Status Members No Information
== END 2025-03-31 12:36 | disposition home or self-care (01) ==
DX: I35.9 Nonrheumatic aortic valve disorder, unspecified (principal); J84.9 Interstitial pulmonary disease, unspecified
CPT/HCPCS: 93306

== ENCOUNTER 2025-04-06 10:27 | Outpatient (CLI) | payer OTHER, SELFPAY ==
--- NOTE | ~2025-04-06 | XR_ITS ---
Right Knee Technique: AP, lateral, and sunrise views were obtained. Clinical History: Pain Findings: No acute fracture or dislocation is seen. Healed fracture deformity of the distal femur not ed with femoral intramedullary lorena present. There is mild degenerative spurring at the intercondylar notch and patella. Small joint effusion is seen. Impression: No acute osseous abnormality. Prior ORIF of the femur with healed fracture deformity the distal femoral shaft. Mild degenerative change, as above. Small effusion. Reviewed, dictated and finalized at location M. Impression: No acute osseous abnormality. Prior ORIF of the femur with healed fracture deformity the distal femoral shaft . Mild degenerative change, as above. Small effusion.
== END 2025-04-06 10:28 | disposition home or self-care (01) ==
DX: M25.561 Pain in right knee (principal); Z98.890 Other specified postprocedural states; M25.461 Effusion, right knee
CPT/HCPCS: 73564

== ENCOUNTER 2025-07-04 16:56 | Emergency (ER) | payer OTHER, SELFPAY ==
--- OUTSIDE RECORDS SUMMARY | 2025-04-11 03:08 | XMS_ITS | Continuity of Care Document ---
Author Organization [facility] Address [address] [place] [address] Phone Care Team Providers Care Stock Unloader Name Role Phone Sergey Coronel MD Unavailable [...] BY MOUTH TWICE A DAY - Active aspirin 81 mg chewable tablet take 1 tablet by oral route every day - Active prednisone 5 mg tablet take 1 Tablet by oral route every day 1 Tablet - Active famotidine 20 mg tablet take 1 tablet by oral route every 12 hours 20 MG - No Longer Active Procedures Procedure Date MED LIST DOCD IN RCRD Pt inelig neg scrn depres FALL RISK ASSESSMENT DOC'D OFFICE [id number] BODY MASS INDEX DOCD SYST BP LT 130 MM HG DIAST BP < 80 MM HG FALL RISK ASSESSMENT DOC'D PRES/ABSN URINE INCON ASSESS Admin influenza virus vac RIV3 VACCINE NO PRESERV IM Covid Vaccine Admin, Single Dose 2023 Pfizer Comirnaty tri-sucrose COVID Vacci ne 30 mcg/ OFFICE [id number] BODY MASS INDEX DOCD SYST BP GE 130 - 139MM HG DIAST BP < 80 MM HG Pt inelig neg scrn depres FALL RISK ASSESSMENT DOC'D PRES/ABSN URINE INCON ASSESS Admin influenza virus vac Flu Vac, quad (RIV4), Preservative And A ntibiotic Free IM OFFICE [id number]-[id number]-[id number] BODY MASS INDEX DOCD SYST BP LT 130 MM HG DIAST BP < 80 MM HG Pt inelig neg scrn depres OFFICE [id number] BODY MASS INDEX DOCD SYST BP LT 130 MM HG DIAST BP < 80 MM HG FALL RISK ASSESSMENT DOC'D PRES/ABSN URINE INCON ASSESS OFFICE [id number] BODY MASS INDEX DOCD SYST BP LT 130 MM HG DIAST BP < 80 MM HG DSCHRG MED/CURRENT MED MERGE OFFICE [id number] BODY MASS INDEX DOCD SYST BP GE 130 - 139MM HG DIAST BP < 80 MM HG DSCHRG MED/CURRENT MED MERGE DSCHRG MED/CURRENT MED MERGE FALL RISK ASSESSMENT DOC'D PRES/ABSN URINE INCON ASSESS OFFICE [id number] BODY MASS INDEX DOCD SYST BP LT 130 MM HG DIAST BP < 80 MM HG Antibody; COVID-19 ROUTINE VENIPUNCTURE FALL RISK ASSESSMENT DOC'D PRES/ABSN URINE INCON ASSESS Pt inelig neg scrn depres PPPS, subseq visit BODY MASS INDEX DOCD SYST BP GE 130 - 139MM HG DIAST BP < 80 MM HG Pt inelig neg scrn depres FALL PLAN OF CARE DOC'D URINE INCON PLAN DOC'D PRES/ABSN URINE INCON ASSESS OFFICE [id number]-[id number] BODY MASS INDEX DOCD SYST BP LT 130 MM HG DIAST BP < 80 MM HG FALL PLAN OF CARE DOC'D URINE INCON PLAN DOC'D PRES/ABSN URINE INCON ASSESS OFFICE [id number] BODY MASS INDEX DOCD SYST BP LT [...] Diagnoses Date Provider Providers Copied on Encounter [facility], [address], [place], [place], [address] , [place] tel: [phone] [facility] Pain, joint, knee, right 5 Homer Pedersen. [address], [place], [place], [address], [place]. tel:[phone] [facility], [address], [place], [place], [address] , [place] tel:[phone] [facility] Pain, joint, knee, right February- 5 Homer Pedersen. [address], [place], [place], [address], [place]. tel:[phone] [facility], [address], [place], [place], [address] , [place] tel:[phone] [facility] Evaluation of hearing impairment Apr-0 5 Homer Pedersen. [address], [place], [place], [address], [place]. tel:[phone] Referring Provider: Sergey rucker, [facility] [address] [facility], [place], [address] . tel:[phone] [facility], [address], [place], [place], [address] , [place] tel:[phone] [facility] No Information 5 Homer Pedersen. [facility], [place], [place], [address], [place]. tel:[phone] Referring Provider: Sergey rucker, [facility] [address] [address], [place], [address] . tel:[phone] OFFICE JOPPH-OYE-EN [facility], [address], [place], [place], [address] , [place] tel:[phone] [facility] acute visit (chief complaint) Vaccine counselingTendini tis of right kneeBorderline osteopeniaRaynaud 's syndrome without gangreneBody mass index [BMI] 32.0-32.9, adult Dec-2 5 Homer Pedersen. [address], [place], [place], [address], [place]. tel:[phone] Referring Provider: Sergey rucker, [facility], [place], [address] . tel:[phone] [facility], [address], [place], [place], [address] , [place] tel:[phone] [facility] No Information 4 Homer Pedersen. [address], [place], [place], [address], [place]. tel:[phone] [facility]ICE [facility], [address], [place], [place], [address] , [place] tel:[phone] [facility] Chronic Conditions (chief complaint)M edicare preventive (chief complaint) Essential (primary) hypertensionIdiop athic pulmonary fibrosisAtheroscl erosis of aortaRaynaud's syndrome without gangreneGastro-es ophageal reflux disease without esophagitisMerkel cell carcinoma of scalp and neckBody mass index [BMI] 31.0-31.9, adultJoint stiffnessCataract of both eyes, unspecified cataract typeEncntr for general adult medical exam w/o abnormal findings 4 Homer Pedersen. [address], [place], [place], [address], [place]. tel:[phone] Referring Provider: Sergey rucker, [address], [place], [address] . tel:[phone] [facility]ICE [facility], [address], [place], [place], [address] , [place] tel:[phone] [facility] Chronic Conditions (chief complaint) Essential (primary) hypertensionIdiop athic pulmonary fibrosisRaynaud's syndrome without gangreneGastro-es ophageal reflux disease without esophagitisMerkel cell carcinoma of scalp and neckEncounter for immunizationLow back pain, unspecifiedBody mass index [BMI] 31.0-31.9, adult Jun- 3 Emmett Perez. [address], [place], [place], [address], [place]. tel:[phone] Referring Provider: Scottie Williamson , [address] [place] [address], [address] . tel:[phone] [facility]ICE [facility], [address], [place], [place], [address] , tel:[phone] [facility] Chronic Conditions (chief complaint) Body mass index [BMI] 31.0-31.9, adultEssential (primary) hypertensionIdiop athic pulmonary fibrosisAtheroscl erosis of aorta 3 Clay Rubin. [address] [place] [address], [id number], [place]. tel:[phone] Referring Provider: Scottie Williamson , [address] [place] [address], [address] . tel:[phone] OFFICE RRVNH-HWQ-UB [facility], [address], [place], [place], [address] , [place] tel:[phone] [facility] Chronic Conditions (chief complaint) Idiopathic pulmonary fibrosisBenign essential hypertension 2 Clay Rubin. [address] [place] [address], [address], [place]. tel:[phone] Referring Provider: Scottie Williamson , [address] [place] [address], [address] . tel:[phone] [facility]ICE [facility], [address], [place], [place], [address] , [place] tel:[phone] [facility] Hospital Follow-Up (chief complaint)C hronic Conditions (chief complaint) Body mass index [BMI] 31.0-31.9, adultBenign essential hypertensionAther osclerosis of aortaIdiopathic pulmonary fibrosisLung mass 2 Clay Rubin. [address] [place] [address], [id number], [place]. tel:[phone] Referring Provider: Scottie Williamson , [address] [place] [address], [address] . tel:[phone] [facility] [address], [place], [place], [address] , tel: [phone] [facility] No Information 2 Clay Rubin. [address] [place] [address], [id number], . tel:[phone] Referring Provider: Scottie Williamson , [address] [place] [address], [address] . tel:[phone] [facility], [address], [place], [place], [address] , tel: [phone] [facility] No Information 2 Clay Rubin. [address] [place] [address], [id number], . tel:[phone] Referring Provider: Scottie Williamson , [address] [place] [address], [address] . tel:[phone] OFFICE FDZCI-DMV-YI [facility], [address], [place], [place], [address] , tel: [phone] [facility] follow up (chief complaint)D izziness (chief complaint)C hronic Conditions (chief complaint) Body mass index (BMI) 30.0-30.9, adultBenign paroxysmal positional vertigo, unspecified lateralityBenign essential hypertensionAther osclerosis of aortaIdiopathic pulmonary fibrosis 1 Clay Rubin. [address] [place] [address], [address], . tel:[phone] Referring Provider: Scottie Williamson , [address] [place] [address], [address] . tel:[phone] [facility], [address], [place], [place], [address] , tel:[phone] [facility] No Information 1 Clay Rubin. [address] [place] [address], [id number], . tel:[phone] [facility], [address], [place], [place], [address] , tel: [phone] [facility] No Information 1 Benita Mendieta. [address] [facility] [address], [place], [place], [address]. tel:[phone] [facility], [address], [place], [place], [address] , [place] tel: [phone] [facility] Medicare preventive (chief complaint)C hronic Conditions (chief complaint) Body mass index (BMI) 29.0-29.9, adultEncounter for general adult medical examination without abnormal findingsBenign essential hypertensionAther osclerosis of aortaIdiopathic pulmonary fibrosisRaynaud's syndrome without gangrene 0 Clay Rubin. [address] [place] [address], [id number], . [phone] Referring Provider: Scottie Williamson , [address] [place] [address], [address] . tel:[phone] OFFICE DKWGG-BHE-PH TAILED [facility], [address], [place], [place], [address] , [place] tel: [phone] [facility] Chronic Conditions (chief complaint) Interstitial pulmonary disease, unspecifiedRaynau d's disease without gangreneBenign essential hypertensionAther osclerosis of aortaSS-A antibody positiveBody mass index (BMI) 30.0-30.9, adultGastro-esoph ageal reflux disease without esophagitis 9 Emmett Perez. [address], [place], [place], [address], [place]. [phone] Referring Provider: Scottie Williamson [address] [place] [address], [address] . tel:[phone] [facility], [address], [place], [place], [address] , tel: [phone] [facility] No Information 9 Clay Rubin. [address] [place] [address], [id number], [place]. tel:[phone] OFFICE NCNFO-KSB-PF TAILED [facility], [address], [place], [place], [address] , [place] tel: [phone] [facility] follow up (chief complaint)C hronic Conditions (chief complaint) Essential (primary) hypertensionInter stitial pulmonary disease, unspecifiedEncoun ter for screening for osteoporosisAther osclerosis of aorta 9 Clay Rubin. [address] [place] [address], [id number], [place]. tel:[phone] Referring Provider: Scottie Williamson , [address] [place] [address], [address] . tel:[phone] [facility], [address], [place], [place], [address] , [place] tel: [phone] [facility] Chronic Conditions (chief complaint) Raynaud's disease without gangreneElevated antinuclear antibody (EL) levelEssential (primary) hypertensionShort ness of breathBody mass index (BMI) 30.0-30.9, adult Apr-3 0-201 9 Emmett Perez. [address] [facility], [place], [place], [address], [place]. tel:[phone] Referring Provider: Scottie Williamson , [address] [place] [address], [address] . tel:[phone] [facility], [address], [place], [place], [address] , [place] tel: [phone] [facility] Dyspnea on exertionRaynaud's disease without gangreneElevated antinuclear antibody (EL) level Jan- 9 Clay Rubin. [address] [place] [address], [id number], [place]. tel:[phone] [facility], [address], [place], [place], [address] , [place] tel: [phone] [facility] Elevated antinuclear antibody (EL) levelRaynaud's disease without gangreneDyspnea on exertion Jan-0 8- 9 Emmett Perez. [address] [facility] [address], [place], [place], [address], [place]. tel:[phone] [facility], [address], [place], [place], [address] , [place] tel: [phone] [facility] Essential (primary) hypertensionShort ness of breathOther specified systemic involvement of connective tissue Jan-0 1- 9 Clay Rubin. [address] [place] [address], [address], [place]. tel:[phone] Referring Provider: Scottie Williamson , [address] [place] [address], [address] . tel:[phone] [facility] [address], [place], [place], [address] , tel: [phone] [facility] Body mass index (BMI) 30.0-30.9, adultEssential (primary) hypertensionShort ness of breathLightheaded Raynaud's disease without gangreneOther specified systemic involvement of connective tissue Dec-2 - 9 Emmett Perez. [address] [facility] [address], [place], [place], [address], [place]. tel:[phone] Referring Provider: Scottie Williamson , [address] [place] [address], [address] . tel:[phone] [facility], [address], [place], [place], [address] , [place] tel:[phone] [facility] Personal history of colonic polyps 9 Clay Rubin. [address] [place] [address], [id number], [place]. tel:[phone] [facility], [address], [place], [place], [address] , [place] tel: [phone] [facility] No Information 8 Clay Rubin. [address] [place] [address], [id number], [place]. [phone] [facility], [address], [place], [place], [address] , [place] tel: [phone] [facility] Right-sided chest painDyspnea on exertion 8 Clay Rubin. [address] [place] [address], [id number], [place]. tel:[phone] [facility], [address], [place], [place], [address] , [place] tel: [phone] [facility] Body mass index (BMI) 31.0-31.9, adultRight-sided chest painElevated serum globulin level 8 Emmett Perez. [address] [facility] [address], [place], [place], [address], [place]. tel:[phone] Referring Provider: Scottie Williamson , [address] [place] [address], [address] . tel:[phone] [facility], [address], [place], [place], [address] , [place] tel: [phone] [facility] Body mass index (BMI) 31.0-31.9, adultImmunization counselingFatigue , unspecified typeElevated serum globulin levelBenign essential hypertension 8 Clay Rubin. [address] [place] [address], [address], [place]. tel:[phone] Referring Provider: Scottie Williamson , [address] [place] [address], [address] . tel:[phone] [facility], [address], [place], [place], [address] , [place] tel: [phone] [facility] Body mass index (BMI) 31.0-31.9, adultChest discomfortCoughAt herosclerosis of aorta 8 Clay Rubin. [address] [place] [address], [id number], [place]. tel:[phone] Referring Provider: Scottie Williamson , [address] [place] [address], [address] . tel:[phone] [facility], [address], [place], [place], [address] , [place] tel:[phone] [facility] Cough 8 Phu Tobar. [address], [id number], [place]. tel:[phone] Referring Provider: Scottie Williamson , [address] [place] [address], [address] . tel:[phone] [facility], [address], [place], [place], [address] , [place] tel:[phone] [facility] Pre-ulcerative calluses Clay Rubin. [address] [place] [address], [id number], [place]. tel:[phone] [facility], [address], [place], [place], [address] , [place] tel:[phone] [facility] No Information Clay Rubin. [address] [place] [address], [address], [place]. tel:[phone] [facility], [address], [place], [place], [address] , [place] tel: [phone] [facility] Encounter for general adult medical examination without abnormal findingsEssential (primary) hypertensionGastr o-esophageal reflux disease without esophagitisFormer smokerScreening for abdominal aortic aneurysmEncounter for screening for lung cancerElevated glucose levelSkin cancer, basal cell 7 Emmett Perez. [address], [id number], [place]. tel:[phone] Referring Provider: Scottie Williamson , [address] [place] [address], [address] . tel:[phone] [facility], [address], [place], [place], [address] , [place] tel: [phone] [facility] No Information 6 Clay Rubin. [address] [place] [address], [id number], [place]. tel:[phone] [facility], [address], [place], [place], [address] , tel: [phone] [facility] Encounter for general adult medical examination without abnormal findingsEssential (primary) hypertensionGastr o-esophageal reflux disease without esophagitisFatigu e, unspecified typeCervicalgia Jan- 6 Emmett Perez. [address] [address], [place], [place], [address], [place]. tel:[phone] Referring Provider: Scottie Williamson , [address] [place] [address], [address] . tel:[phone] [facility], [address], [place], [place], [address] , tel: [phone] [facility] No Information 5 Clay Rubin. [address] [place] [address], [id number], [place]. tel:[phone] [facility], [address], [place], [place], [address] , [place] tel: [phone] [facility] Gastritis February- 5 Emmett Perez. [address], [place], [place], [address], [place]. tel:[phone] [facility], [address], [place], [address] , [place] tel: [phone] [facility] Gastritis Jan- 5 Emmett Perez. [address], [place], [place], [address], [place]. [phone] Referring Provider: Scottie Williamson , [address] [place] [address], [address] . tel:[phone] [facility], [address], [place], [place], [address] , [place] tel: [phone] [facility] Actinic keratoses 4 Clay Rubin. [address] [place] [address], [address], [place]. tel:[phone] [facility], [address], [place], [place], [address] , [place] tel: [phone] [facility] Benign essential hypertensionHx of skin cancer, basal cellLUMBAGOESOPHA GEAL REFLUXJOINT PAIN-L/LEGFlu vaccine need 4 Emmett Perez. [address] [facility], [place], [place], [address], [place]. tel:[phone] Referring Provider: Scottie Williamson , [address] [place] [address], [address] . 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 [address] [place] [address], [id number], [place]. tel:[phone] [facility], [address], [place], [place], [address] , [place] tel: [phone] [facility] Actinic keratosesHx of skin cancer, basal cell 4 Clay Rubin. [address] [place] [address], [id number], [place]. tel:[phone] [facility], [address], [place], [place], [address] , [place] tel: [phone] [facility] No Information 2 3 Clay Rubin. [address] [place] [address], [id number], [place]. tel:[phone] [facility], [address], [place], [place], [address] , tel: [phone] [facility] Benign essential hypertensionSpeci al screening for malignant neoplasms, colonNeed for prophylactic vaccination and inoculation against streptococcus pneumoniae [pneumococcus] 3 Clay Rubin. [address] [place] [address], [id number], . tel:[phone] Referring Provider: Scottie Wililamson , [address] [place] [address], [address] . tel:[phone] [facility], [address], [place], [place], [address] , [place] tel:[phone] [facility] Routine general medical [facility] a [facility] facilityBenign essential hypertension 2 Clay Rubin. [address] [place] [address], [id number], . tel:[phone] Referring Provider: Scottie Williamson , [address] [place] [address], [address] . tel:[phone] [facility] [address], [place], [place], [address] , [place] tel:[phone] [facility] Skin lesions, generalized 2 Garret Renetta. [address], [place], [address]. tel:[phone] Referring Provider: Scottie Williamson , [address] [place] [address], [address] . tel:[phone] [facility], [address], [place], [place], [address] , [place] tel:[phone] [facility] NEED FOR PROPHYLACTIC VACCINATION WITH COMBINED DIPHTHERIA-TETANU S-PERTUSSIS (DTP) (DTAP) VACCINE 1 Clay Rubin. [address] [place] [address], [id number], [place]. tel:[phone] Referring Provider: Scottie Williamson , [address] [place] [address], [address] . tel:[phone] [facility], [address], [place], [place], [address] , [place] tel: [phone] [facility] Disturbance of skin sensation 0 6201 1 Clay Rubin. [address] [place] [address], [id number], [place]. tel:[phone] Referring Provider: Scottie Williamson , [address] [place] [address], [address] . tel:[phone] [facility], [address], [place], [place], [address] , [place] tel: [phone] [facility] BENIGN HYPERTENSION 201 0 Clay Rubin. [address] [place] [address], [id number], [place]. tel:[phone] [facility], [address], [place], [place], [address] , [place] tel: [phone] [facility] ESOPHAGEAL REFLUX 201 0 Junito Shirin. [address] [facility], [place], [place], [address]. tel:[phone] [facility], [address], [place], [place], [address] , [place] tel: [phone] [facility] BPH LOC W/O UR OBS/LUTS Dec-0 4-200 9 Clay Rubin. [address] [place] [address], [id number], [place]. tel:[phone] [facility], [address], [place], [place], [address] , [place] tel: [phone] [facility] LUMBAGO Leandro-2 3-200 8 Conversion Doctor. [address] [place], [address], [place]. [facility], [address], [place], [place], [address] , [place] tel: [phone] [facility] SCRN MALIG NEOP-PROSTATE Dec-2 6-200 8 Clay Rubin. [address] [place] [address], [id number], [place]. tel:[phone] [facility], [address], [place], [place], [address] , [place] tel: [phone] [facility] ROUTINE MEDICAL EXAM 7-200 7 Clay Rubin. [address] [place], [place], [address], [place]. tel:[phone] [facility], [address], [place], [place], [address] , [place] tel: [phone] [facility] URINARY HESITANCYURINARY FREQUENCY 3200 7 Clay Rubin. [address], [place], [address], [place]. tel:[phone] [facility], [address], [place], [place], [address] , [place] tel: [phone] [facility] URIN TRACT INFECTION NOS 7 Juntio Carpio. [address] [facility], [place], [place], [address]. tel:[phone] [facility], [address], [place], [place], [address] , [place] tel: [phone] [facility] VACCIN FOR INFLUENZA 3200 7 Clay Rubin. [address] [place] [address], [id number], [place]. [phone] [facility], [address], [place], [place], [address] , [place] tel: [phone] [facility] DIZZINESS AND GIDDINESS [address] Clay Rubin. [facility] [place], [place], [address], [place]. tel:[phone] [facility], [address], [place], [place], [address] , [place] tel: [phone] [facility] IMPOTENCE, ORGANIC ORIGN 0-200 5 Clay Rubin. [address] [place] [address], [id number], [place]. tel:[phone] [facility], [address], [place], [place], [address] , [place] tel: [phone] [facility] JOINT PAIN-L/LEG 200 2 Laurenkayla Rubin. [address] [place], [place], [address], . [phone] [facility], [address], [place], [place], [address] , tel: [phone] [facility] TOBACCO USE DISORDER 6200 0 Clay Scottie. [address] [place], [place], [address], [place]. [phone] Family History Family Member Type Diagnosis Age At Onset Father Problem (finding) Brain tumor Mother Problem (finding) osteoarthritis Sister Problem (finding) Brain tumor Immunizations Vaccine Date Status Comments RSV (Arexvy), preF, recombinant, adjuvanted vaccine, 120 mcg/0.5 mL administered Source: Other Pr ovider Flublok, Trivalent, preservative free, 18+ yrs, 0.5mL dosage administered Source: New Immuniza tion Record Pfizer Comirnaty COVID vaccine, nely-sucrose, 30mcg/0.3mL dose, 12 years and older administered Source: New Immuniza tion Record Flublok, quadrivalent, preservative free, 0.5mL dosage administered Source: New Immuniza tion Record Fluzone High-Dose, high dose , preservative free administered Note: [facility] ; Source: Other Registry Fluzone High-Dose, high dose , preservative free administered Note: [facility] ; Source: Other Provider [facility] (Diluent Reconstitute d) COVID19 Vaccine, 0.3mL per dose, 2 doses, administered 21 days apart administered Source: Other [facility] er Pfizer-BioNTUpverter COVID19 Vaccine, 0.3mL per dose, 2 doses, administered 21 days apart administered Source: Other Regist ry Pfizer-BioNTech COVID19 Vaccine, 0.3mL per dose, 2 doses, administered 21 days apart administered Source: Other Regist elyse Fluzone High-Dose, high dose , preservative free administered Note: [facility] ; Source: Other Registry Fluzone High-Dose, high dose , preservative free administered Note: Yasmeens ; So urce: Other Provider SHINGRIX (Zoster vaccine recombinant, adjuvanted) administered Note: Edgar ; Source: Other Provider Fluzone High-Dose, high dose , preservative free administered Note: Schomairas ; Brigitte rce: Other Provider SHINGRIX (Zoster vaccine recombinant, adjuvanted) administered Note: [facility] ; Brigitte rce: Other Provider Fluzone Quad , spli t virus, 0.5mL dosage administered Note: [...] or older) administered Source: New Immunization Record 44180 - Influenza administered Source: So urce Unspecified Payers Payer name Insurance type Covered republican ID Authoriza tion(s) [employer] PPO MB [id number] [employer] [place] [id number] [employer] MB [id number] Social History Type Description Quantity Date Captured [...] nt education, guidance, and counseling completed Referral Ordered: Physical Therapy [facility] Physical Therapy [facility] (related to Pain, joint, knee, right) ordered Referral Referred To: Physical Therapy [address] [place] [address]
[facility] [address] [place], [phone] Ordered: Referrals: Physical Therapy. Location: [facility] Physical [facility]. Evaluation/diagnostic/treatment - Level 3 ordered Referral Referred To: [address] [place] [address], [address] [phone] Ordered: X-RAY EXAM OF KNEE, COMPLETE (4+ VIEWS) Bilateral Right ordered Referral Referred To: [address] [place] [address], [address] [phone] Ordered: Hearing examination ordered Referral Ordered: DEXA of spine and hip ordered Appointment Dani Batista BOOKED Patient Education Shoulder Separ ation: Rehab Exercises completed Patient Education Knee: Exercises complet ed Future Order: Radiology Order US for abdominal aortic aneurysm (AAA) screening (54125), Sent on: Sent Future Order: Radiology Order AB I (ankle brachial index) Bilateral extremities (68863), Body Site: extremities, Sent on: Sent History Of Present Illness Encounter Date Complaint History Of Prese nt Illness acute visit 79-year-old male presents [...] reports that 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 The problem is acute. The patient describes it as (an) imbalance and unstable horizon. Pertinent negatives include diplopia, ear drainage, fever, hearing loss, incoordination, nausea, otalgia, slurred speech, tinnitus and vomiting. Chronic Conditions *See Chronic Conditions [facility] follow up Chronic Conditions *See Chronic Conditions [facility] Medicare preventive A Health Ris k Assessment [...] changes made. Chronic Conditions *See Chronic Conditions [facility] Chronic Conditions *See Chronic Conditions [facility] follow up Chronic Conditions *See Chronic Conditions [...] EKG and labs. Echocardiogram was unremarkable in 2019. The patient is medically cleared to under cataract surgery as planned. Related to Cataract of both eyes, unspecified cataract type Continue to follow w ith your vice president of brand management. 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 You remain on daily prednisone. I ordered a bone density. Please call [phone] to schedule a bone density of your [...] home once a week.Please call PCP or FIELD AUTO APPRAISER for BP readings consistently above goal, 130/80 [...] than 2-3x/week, please notify your PCP or FIELD AUTO APPRAISER. Related to Gastro-esophageal reflux disease without esophagitis No more than 15grams of saturated fat daily.Increase fiber intake to 25 grams per day.Increase exercise to 30 minutes 4x/week. 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 Your blood pressure is controlled today.Please continue current medication regimen.Please call PCP or FIELD AUTO APPRAISER for BP readings consistently above goal, 130/80 [...] provider is:Dr Rosalie Elizaldel[address], [place], [place] [address]Tkzcp: Related to Elevated antinuclear antibody (EL) level Your blood pressure is controlled today.Please continue current medication regimen.Please call PCP or FIELD AUTO APPRAISER for BP readings consistently above goal, 130/80 [...] without gangrene Urinary Incontinence Fall Risk Prevention Dietary management e ducation, guidance, and counseling Related to Body mass index (BMI) 30.0-30.9, adult Medication management Medication management Assessments Type Assessment Date assessment Pain, joint, knee, right 2024 Patient Care Teams Name Effective Dates (start - stop) Status Members No Information
[2025-07-04] VITALS (10 sets, daily range): BP systolic 144–169; BP diastolic 64–90; PULSE 68–82; RESP 16–24; TEMP 36.8–37; O2SAT 96–99
--- NOTE | ~2025-07-04 | CT_ITS ---
EXAMINATION: CT diagnostic chest wo con DATE: 07/04/2025 20:01 INDICATION: Syncope. Chest pain. TECHNIQUE: Computed tomography (CT) of the chest was performed without intravenous contrast. The dose-length product was 474.85 mGy-cm. Automated exposure control and iterative reconstruction technique were employed. COMPARISON: None FINDINGS: There is a 1.8 cm exophytic hyperdense mass of the right kidney, most likely hyperdense cysts. No significant pleural or pericardial effusion. There are pleural calcifications, consistent with prior asbestos exposure. No thoracic lymphadenopathy. There is atherosclerosis of the aorta, great vessels and coronary arteries. There are coarse interstitial changes preferentially affecting the mid and lower lungs. There is bronchiectasis. This likely reflects chronic interstitial lung disease. Cannot exclude superimposed pneumonia. There is an old healed left clavicular fracture. There is osteoarthritis of the shoulders. There are multiple healed left rib fractures. There is an age-indeterminate burst fracture of L1. No prior studies available for comparison. IMPRESSION: 1. Coarse interstitial changes with basilar preference. This is characterized as it thickened interlobular septa and groundglass opacities, and traction bronchiectasis likely chronic interstitial fibrosis. Cannot exclude superimposed pneumonia. 2: Age-indeterminate L1 burst fracture. Recommend correlation with MRI to assess acuity. Reviewed, dictated and finalized at location O. IMPRESSION: 1. Coarse interstitial changes with basilar preference. This is characterized a s it thickened interlobular septa and groundglass opacities, and traction bronc hiectasis likely chronic interstitial fibrosis. Cannot exclude superimposed pne umonia. 2: Age-indeterminate L1 burst fracture. Recommend correlation with MRI to asses s acuity.
--- NOTE | ~2025-07-04 | XR_ITS ---
XR chest 1V portable 07/04/2025 19:11 Indication: Syncope Procedure: AP portable chest Comparison: No prior studies for comparison. Findings: There is diffuse bilateral airspace disease. No pneumothorax. There is a healed left clavicular fracture. Impression: 1: Diffuse bilateral airspace disease may represent edema or pneumonia. Reviewed, dictated and finalized at location O. Impression: 1: Diffuse bilateral airspace disease may represent edema or pneumonia.
--- NOTE | ~2025-07-04 | CT_ITS ---
EXAMINATION: CT cervical spine wo con DATE: 07/04/2025 20:00 INDICATION: Syncope TECHNIQUE: Computed tomography (CT) of the cervical spine was performed without intravenous contrast. The dose-length product was 386 mGy-cm. COMPARISON: None FINDINGS: Craniovertebral junction is normal. Odontoid process is normal. No acute fracture or traumatic malalignment. No evidence for perched facet. Spinous processes are normal. Odontoid process is normal. There is multilevel uncinate and facet hypertrophy. There is levocurvature of the cervical spine. IMPRESSION: 1. No acute abnormality of the cervical spine. Reviewed, dictated and finalized at location O.
--- NOTE | ~2025-07-04 | CT_ITS ---
EXAMINATION: CT brain wo con DATE: 07/04/2025 20:00 INDICATION: Syncope. Status post fall. Head injury. TECHNIQUE: Computed tomography (CT) of the head was performed without intravenous contrast. The dose-length product was 681.00 mGy-cm. Automated exposure control and iterative reconstruction technique were employed. COMPARISON: None FINDINGS: No acute intracranial hemorrhage, infarction, mass or mass effect. No ventriculomegaly or midline shift. Basilar cisterns are patent. There is intracranial atherosclerosis. There is mild mucosal thickening of the maxillary and ethmoid sinuses. Mastoids are pneumatized. No depressed skull fractures. There is scalp swelling at the parietal vertex. IMPRESSION: 1. No acute intracranial abnormality. Reviewed, dictated and finalized at location O.
--- OUTSIDE RECORDS SUMMARY | 2025-07-04 18:23 | XMS_ITS | Clinical Summary ---
Author Organization [facility] Address [address] [place] [address] Care Team Providers Care Relocation Director Name Role Phone Scottie Williamson MD Primary Care Provider Emily Blue MD Unavailable Kat Luna MD Unavailable [phone] Jose Diaz MD Unavailable [phone] Valente Torres MD Unavailable [phone] Thelma Brown MD Unavailable [phone] Allergies No known active allergies Medications [...] 11/30/2021 Assessment & Plan (11/30/2021 7:35 AM RADIO MECHANIC): - takes oxy at home - pain following to help with acute pain issues Nausea 11/30/2021 Assessment & Plan (12/03/2021 7:22 AM RADIO MECHANIC): - improved - 12/02 KUB consistent w post op ileus, now resolved - prn antiemetics - scheduled miralax - protonix BID - azathiopine IV - maalox - continue POPM - OOB - advance diet to regular Lung mass 11/29/2021 Mass of lower lobe of left lung 11/08/2021 Assessment & Plan (12/03/2021 7:21 AM RADIO MECHANIC): Left thoracotomy, lysis of adhesions, and left lower lobe diagnostic wedge resection - chest tubes all out - pain control with POPM - OOB with PT 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 - sees pulmonary medicince - on room air now - resume home medications as indicated Immunizations Immunization Administration Dates Next Due COVID-19 MRNA (NetClarity) .25 ML (25 MCG) VACCINE (6 MOS- 11 YRS) 01/07/2024 COVID-19 mRNA ([employer]) 0.3 m L (30 mcg) vaccine (12 [...] Former Cigarettes 1 44 1 963 - 2006 Smokeless Tobacco: Never Tobacco Cessation:Counseling Given: Not [...] on file Legal Sex Male 12:18 AM RADIO MECHANIC Gender Identity Not on file Sexual Orientation Straight 12/31/2019 9: 09 AM RADIO MECHANIC Obstetrics History Last Filed Vital Signs Vital [...] Assessment 12/03/2022 12/03/2021 Covid-19 Vaccine (7 - 2023-2 5 season) 2025 08/27/2024, 01/07/2024, 07/26/2023, Additional history exists Influenza Vaccine (#1) 2025 , 08/27/2024, 07/10/2023, Additional history exists Pneumococcal vaccine 65+ Completed 05/23/2017, 06/27 Zoster Vaccine Completed 08/31/2018, 05/28, 06/23/2018, Additional history exists Hepatitis C Screening Completed 01/02/2022 Abdominal Aortic Aneurysm (A AA) Screen Completed 01/03/2025, 07/12/2024, 01/05/2024, Additional history exists Procedures Procedure Name Priority Date/Time Associated Diagnosis Comments CT CHEST ABDOMEN PELVIS W CONTRAST Schedule Routine, Read Routine (OP Routine) 01/03/2025 9:24 AM CDT [place] 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 Testing performed by: [facility], [facility] [facility], [place]., [address] Blood 01/02/2022 1:23 PM RADIO MECHANIC 01/02/2022 4:18 PM RADIO MECHANIC Marian Messina NP LAB MICROBIOLOGY - GENERAL ORDERABLES Final Result [facility] [id number] [facility]. Department [place] [address] from Last 3 Months or Most Recently Relevant to Health Maintenance Insurance [facility] MEDICARE ADVANTAGE CHOICE O Member Subscriber Plan / Payer (Ef fective 2023-Present) Name:Perico Batista Relation to Subscriber:Self Name:Perico Batista Payer ID:[id number] (NAIC) Type:MEDICARE RISK OTHER Address: [address] [facility] [place] [id number] ADVANTAGE CHOICE PPO Advance Directives For more information, please contact: [phone] * Full Code (Latest Code Status on File) Date Activated Date Inactivated Comments 11/29/2021 12:26 PM 12/03/2021 2:57 PM * Full Code Date Activated Date Inactivated Comments 10/31/2021 8:34 PM 11/01/2021 2:32 PM Care Teams Relocation Director Relationship Specialty Start Date End Date Scottie Williamson MD [address] [place] [address] PCP - General Internal Medicine 03/03/19 Emily Blue MD [address] [place] [address] Fellow Pulmonary Disease 10/16/21 Kat Luna MD [address] [place] [address] Referring Physician Dermatology 10/16/21 Jose Diaz MD [address] [place] [address] Referring Physician Pulmonary Disease 10/16/21 Valente Torres MD [address] [facility], [address] [address] Referring Physician Otolaryngology 02/07/22 Thelma Brown MD [address] [facility] OT[facility], [address] [address] Medical Oncologist/Corporate Recruiter Medical Oncology 01/14/23
--- OUTSIDE RECORDS SUMMARY | 2025-07-04 18:23 | XMS_ITS | Encounter Summary ---
Author Organization [facility] Address [address] [place] [address] Phone Care Team Providers Care Orthopedic Dentist Name Role Phone Scottie Williamson MD Primary Care Provider Emily Blue MD Unavailable [phone] Kat Luna MD Unavailable Jose Diaz MD Unavailable [phone] Valente Torres MD Unavailable [phone] Heather Avila RN Unavailable Unavailable Thelma Brown MD Unavailable [phone] Encounter Details Date Type Department Care Team (Latest Contact Info) Description 11/22/2019 Orders Only [facility] Scanning, Provider Social History Tobacco Use Types Packs/Day Years Used Date Smoking Tobacco: Former Smokeless Tobacco: Never Sex and Gender Information Value Date Recorded Sex Assigned at Not on file 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 [address] [place] [address] PCP - General Internal Medicine 03/03/19 Emily Blue MD [address] [place] [address] Fellow Pulmonary Disease 10/16/21 Kat Luna MD [address] [place] [address] Referring Physician Dermatology 10/16/21 Jose Diaz MD [address] [place] [address] Referring Physician Pulmonary Disease 10/16/21 Valente Torres MD [address] [facility] DEPT OTOLARYNGOLOGY, [address] [address] Referring Physician Otolaryngology 02/07/22 Heather Avila, RN Registered Nurse 05/02/22 02/03/25 Thelma Brown MD Medical Oncologist/Wooden Boat Builder Medical Oncology 01/14/23 documented as of this encounter
--- OUTSIDE RECORDS SUMMARY | 2025-07-04 18:23 | XMS_ITS | Encounter Summary ---
Author Organization [facility] Address [address] [place] [address] Care Team Providers Care Track Dresser Name Role Phone Scottie Williamson MD Primary Care Provider + Encounter Details Date Type Department Care Team (Late st Contact Info) Description 03/15/2020 Lab Requisition [facility] Care DermPath Lab [address] [facility], [facility] [place] [id number] Kat Luna MD [address] [facility] 3 [place] [address] Social History Tobacco Use Types Packs/Day Years Used Date Smoking Tobacco: Former Cigarettes 1.5 37 1 11/22/1964 - 09/22/2002 Smokeless Tobacco: Never Alcohol Use Standard Drinks/Week Comments Yes 1.7 (1 standard drink = 0.6 oz p ure alcohol) occ Sex and Gender Information Value Date Recorded Sex Assigned at Not on file Legal Sex Male 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 Gender Identity Not on file Sexual Orientation Not on file documented as of this encounter Plan of Treatment Not on file documented as of this encounter Procedures Procedure Name Priority Date/Time Associated Diagnosis Comments DERMATOPATH TECHNICAL REPORT Routine 03/14/2020 12:00 AM CDT documented in this encounter Results * DERMATOPATH TECHNICAL REPORT (03/14/2020 12:00 AM CDT) Case Report Dermatopathology Report Case: [id number] Authorizing Provider: Kat Luna MD Collected: 03/14/2020 12:00 AM Ordering Location: [facility] Care DermPath Lab Received: 03/15/2020 06:43 AM Pathologist: Tammy Rivas MD Specimen: Skin, left FH sup 0 3:36 PM CDT DERMATOPATHOLOGY LABORATORY Clinical History R/O BCC, irritated. 0 3:36 PM CDT DERMATOPATHOLOGY LABORATORY Gross Description Specimen A: Received is one formalin filled container labeled with the patient's name and designated left FH sup. The specimen consists of a shave (2 pieces) measuring [id number] & [id number]. Jar 0. [facility] Dermatopathology Laboratory performed the technical component [...] characteristic determined by the Dermatopathology Laboratory at [facility], directed by Dr. Dolores Stragne. These tests need not be, and therefore are not, approved by the [place] Food and Drug Administration. The tests are used for clinical purposes. 0 3:36 PM CDT DERMATOPATHOLOGY LABORATORY at 1536 CDT Pathology/Cytolog y TISSUE SPECIMEN FROM SKIN / Unknown 03/14/2020 03/15/2020 6:43 AM CDT Kat Luna MD LAB - PATHOLOGY/CYTOLOGY OR DERABLES Final Result DERMATOPATHOLOGY LABORATORY [facility] - Department of Dermatology [facility]/[address] [phone] documented in this encounter Visit Diagnoses Not on filedocumented in this encounter Care Teams Track Dresser Relationship Specialty Start Date End Date Scottie Williamson MD [address] [place] [address] PCP - General Internal Medicine 09/22/13 documented as of this encounter
--- OUTSIDE RECORDS SUMMARY | 2025-07-04 18:23 | XMS_ITS ---
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 Immunocompromised 03/01/2022 Anemia 12/25/2021 Chronic pain 11/30/2021 Assessment & Plan (11/30/2021 7:35 AM 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): - takes oxy at home - pain following to help with acute pain issues Nausea 11/30/2021 Assessment & Plan (12/03/2021 7:22 AM INDOOR 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): - improved - 2/6 KUB consistent w post op ileus, now resolved - prn antiemetics - scheduled miralax - protonix BID - azathiopine IV - maalox - continue POPM - OOB - advance diet to regular Lung mass 11/29/2021 Mass of lower lobe of left lung 11/08/2021 Assessment & Plan (12/03/2021 7:21 AM INDOOR 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): Left thoracotomy, lysis of adhesions, and left lower lobe diagnostic wedge resection - chest tubes all out - pain control with POPM - OOB with PT 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 Overview (10/12/2021): Added automatically from request for surgery [id number] Raynaud's disease 10/12/2021 Benign paroxysmal positional vertigo 10/12/2021 High risk medication use 10/09/2020 Basal cell carcinoma (BCC) of right denominational regio n 09/08/2019 NSIP (nonspecific interstitial pneumonia) [...] 07/20/2007 Assessment & Plan (11/30/2021 7:29 AM INDOOR 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): - monitor and restart home medications as BP tolerates Pain in joint involving lower leg 07/19/2002 ILD (interstitial lung disease) ([facility]) Assessment & Plan (12/03/2021 7:20 AM INDOOR 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): Interstitial lung disease in NSIP pattern, likely [...]
--- OUTSIDE RECORDS SUMMARY | 2025-07-04 18:23 | XMS_ITS | Encounter Summary ---
Author Organization [facility] Address [address] [place] [address] Phone Care Team Providers Care Creative Services Writer Name Role Phone Scottie Williamson MD Primary Care Provider Emily Blue MD Unavailable [phone] Kat Luna MD Unavailable [phone] Jose Diaz MD Unavailable [phone] Valente Torres MD Unavailable [phone] Heather Avila RN Unavailable Unavailable Thelma Brown MD Unavailable [phone] Encounter Details Date Type Department Care Team (Late st Contact Info) Description 07/17/2022 Orders Only [facility] ([facility]) - [facility] Medicine ENT [address] [facility] 11th [place] [address] [place] [address] Valente Torres MD [address] [place], [place] [id number] Thyroid nodule (Primary Dx) Social History Tobacco [...] on file Legal Sex Male 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 Gender Identity Not on file Sexual Orientation Straight 12/31/2019 9: 09 AM ASSEMBLING INSPECTOR documented as of this encounter Plan of Treatment Not on file documented as of this encounter Visit Diagnoses Diagnosis Thyroid nodule- Primary Nontoxic uninodular goiter documented in this encounter Additional Health Concerns Infection Onset Date Last Indicated Resolved Time COVID: Suspected 07/02/2024 07/02/2024 07/02/2024 12:21 PM CDT Rhino/Enterovirus 07/02/2024 07/02/2024 07/09/2024 3:05 AM CDT documented as of this encounter Care Teams Creative Services Writer Relationship Specialty Start Date End Date Scottie Williamson MD [address] [address] PCP - General Internal Medicine 03/03/19 Emily Blue MD [address] [place] [address] Fellow Pulmonary Disease 10/16/21 Kat Luna MD [address] [place] [address] Referring Physician Dermatology 10/16/21 Jose Diaz MD [address] [place] [address] Referring Physician Pulmonary Disease 10/16/21 Valente Torres MD [address] [facility] OTOLARYNGOLOGY, [address] [address] Referring Physician Otolaryngology 02/07/22 Heather Avila, RN Registered Nurse 05/02/22 02/03/25 Thelma Brown MD Medical Oncologist/X Ray Consultant Medical Oncology 01/14/23 documented as of this encounter
--- OUTSIDE RECORDS SUMMARY | 2025-07-04 18:23 | XMS_ITS | Encounter Summary ---
Author Organization [facility] Health Address [address] [place] [address] Care Team Providers Care Occupational Psychologist Name Role Phone Scottie Williamson MD Primary Care Provider + Encounter Details Date Type Department Care Team (Late st Contact Info) Description 02/10/2019 Lab Requisition [facility] Care DermPath Lab [address] [facility], [place] [phone] Kat Luna MD [address] [facility] 3 [place] [address] Social History Tobacco Use Types Packs/Day Years Used Date Smoking Tobacco: Former Cigarettes 1.5 37 1 11/22/1964 - 09/22/2002 Smokeless Tobacco: Never Alcohol Use Standard Drinks/Week Comments Yes 1.7 (1 standard drink = 0.6 oz p ure alcohol) occ Sex and Gender Information Value Date Recorded Sex Assigned at Not on file Legal Sex Male 6:27 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 Gender Identity Not on file Sexual Orientation Not on file documented as of this encounter Plan of Treatment Not on file documented as of this encounter Procedures Procedure Name Priority Date/Time Associated Diagnosis Comments DERMATOPATHOLOGY Routine 02/09/2019 12:0 0 AM CDT documented in this encounter Results * DERMATOPATHOLOGY (02/09/2019 12:00 AM CDT) Case Report Dermatopathology Report Case: [id number] Authorizing Provider: Kat Luna MD Collected: 02/09/2019 12:00 AM Pathologist: Nichelle Strange MD Received: 02/10/2019 06:24 AM Specimens: A) - Skin, left moravian B) - Skin, left medial calf 4:11 PM T DERMATOPATHOLOGY LABORATORY Final Diagnosis Specimen A. SKIN, left moravian: BASAL CELL CARCINOMA, NODULAR TYPE (C44.319) PRESENT AT MARGIN Specimen B. SKIN, left medial calf: BASAL CELL CARCINOMA, SUPERFICIAL MULTIFOCAL (C44.719) PRESENT AT MARGIN 4:11 PM T DERMATOPATHOLOGY LABORATORY at 1611 CDT Clinical History A-B: R/O BCC, irritated 4:11 PM T DERMATOPATHOLOGY LABORATORY Gross Description Specimen A: Received is one formalin filled container labeled with the patient's name and designated left moravian. The specimen consists of a shave biopsy (2 pieces) measuring 9x6x1 and 10x6x1 mm. Jar 0. Specimen B: Received is one formalin filled container labeled with the patient's name and designated left medial calf. The specimen consists of a shave biopsy measuring 10x9x1 mm. Jar 0. 4:11 PM T DERMATOPATHOLOGY LABORATORY Microscopic Description Specimen A. SKIN, left moravian: Within the dermis there are aggregates of [...] characteristic determined by the Dermatopathology Laboratory at [facility], directed by Dr. Dolores Strange. These tests need not be, and therefore are not, approved by the [place] Food and Drug Administration. The tests are used for clinical purposes. Billing Codes Specimen Charges Stain Charges 23052 56493 1 1 04/18/201 9 4:11 PM CDT DERMATOPATHOLOGY LABORATORY Embedded Images 9 4:11 PM CDT DERMATOPATHOLOGY LABORATORY Pathology/Cytology TISSUE SPECIMEN FROM SKIN / Unknown 02/09/2019 02/10/2019 6:24 AM CDT Miscellaneous samples (specimen) TISSUE SPECIMEN FROM SKIN / Unknown 02/09/2019 02/10/2019 6:24 AM CDT Kat Luna MD LAB - PATHOLOGY/CYTOLOGY OR DERABLES Final Result DERMATOPATHOLOGY LABORATORY [facility] - Department of Dermatology [address] [place] [address], 5th Floor Lab B [address] [phone] documented in this encounter Visit Diagnoses Not on filedocumented in this encounter Care Teams Occupational Psychologist Relationship Specialty Start Date End Date Scottie Williamson MD [facility] [address] [phone] PCP - General Internal Medicine 09/22/13 documented as of this encounter
--- OUTSIDE RECORDS SUMMARY | 2025-07-04 18:23 | XMS_ITS | Encounter Summary ---
Author Organization [facility] Address [address] [place] [address] Care Team Providers Care Curber Name Role Phone Scottie Williamson MD Primary Care Provider + Encounter Details Date Type Department Care Team (Late st Contact Info) Description 08/17/2019 Lab Requisition 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 DermPath Lab Received: 08/17/2019 12:06 PM Pathologist: Tammy Rivas MD Specimen: Skin, right quaker 12:48 PM CDT DERMATOPATHOLOGY LABORATORY Final Diagnosis Specimen A. 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 12:48 PM CDT DERMATOPATHOLOGY LABORATORY Gross Description Specimen A: Received is one formalin filled container labeled with the patient's name and designated right quaker. The specimen consists of a shave measuring 1u0q1kg. Jar 0. 12:48 PM CDT DERMATOPATHOLOGY LABORATORY Microscopic Description Specimen A. SKIN, right quaker: Within the dermis there are nodular aggregates [...] characteristic determined by the Dermatopathology Laboratory at [facility], directed by Dr. Dolores Strange. These tests need not be, and therefore are not, approved by the [place] Food and Drug Administration. The tests are used for clinical purposes. Billing Codes Specimen Charges Stain Charges 75629 1 12:48 PM CDT DERMATOPATHOLOGY LABORATORY Embedded Images 12:48 PM CDT DERMATOPATHOLOGY LABORATORY Pathology/Cytolog y TISSUE SPECIMEN FROM SKIN / Unknown 08/17/2019 08/17/2019 12:06 PM CDT us Kat Luna MD LAB - PATHOLOGY/CYTOLOGY OR DERABLES Final Result DERMATOPATHOLOGY LABORATORY [facility] - Department of Dermatology [address] [facility], 5th Floor Lab B [address] [phone] documented in this encounter Visit Diagnoses Not on filedocumented in this encounter Care Teams Curber Relationship Specialty Start Date End Date Scottie Williamson MD [address] [phone] PCP - General Internal Medicine 09/22/13 documented as of this encounter
--- OUTSIDE RECORDS SUMMARY | 2025-07-04 18:23 | XMS_ITS | Clinical Summary ---
Author Organization [facility] Address [address] [place] [address] Care Team Providers Care Manager Creative Services Name Role Phone None, Provider Primary Care Provider Unavaila ble Immunizations Immunization Administration Dates Next Due PFIZER COVID-19 (LANDON CAP), MRNA, LNP-S, PF, 30 MCG/0.3 ML NAE-SUCROSE, IM 12/25/2021 PFIZER COVID-19 (ORIGINAL FO RMULATION, PURPLE CAP) mRNA, LNP-S, PF, 30 MCG/0.3 ML DOSE 07/03/2021,11/24/2020 Social History Tobacco Use Types Packs/Day Years Used Date Smoking Tobacco: Never Assessed Sex and Gender Information Value Date Recorded Sex Assigned at Not on file Legal Sex Male 11:24 AM CDT Gender Identity Male 12/24/2021 9:43 AM 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 Sexual Orientation Straight 12/24/2021 9: 43 AM PRECAST 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 Plan of Treatment Health Maintenance Due Date Last Done Comments Hepatitis C 1963 Annual Medicare Wellness Visit 2011 DTaP, Tdap and Td Vaccines (2 - Td or Tdap) 07/25/2021 07/25/2011 RSV Immunization or 60+ Years (1 - 1-dose 75+ series) 2021 COVID-19 Vaccine ( season) 2025 12/25/2021, 07/03/2021, 12/19/2020, Additional history exists Pneumococcal Vaccine: 50+ Years Completed 05/23/2017, 07/14/2013 Zoster Vaccines Completed 08/31/2018, 05/28, 04/13/2012 Meningococcal B Vaccine Aged Out No l onger eligible based on patient's age to complete this topic Meningococcal Vaccine Aged Out No mckay hardy eligible based on patient's age to complete this topic RSV Immunizations Under 20 Months Aged Out No longer eligible based on patient's age to complete this topic Insurance [address] [place] [id number] Care Teams Manager Creative Services Relationship Specialty Start Date End Date None, Provider, PCP - General 06/27/21
--- OUTSIDE RECORDS SUMMARY | 2025-07-04 18:23 | XMS_ITS | Encounter Summary ---
Author Organization [facility] Address [address] [facility] [place] [address] Care Team Providers Care Synchronous Motor Assembler Name Role Phone Scottie Williamson MD Primary Care Provider + Encounter Details Date Type Department Care Team (Late st Contact Info) Description 06/10/2018 Lab Requisition 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 Gender Identity Not on file Sexual Orientation Not on file documented as of this encounter Plan of Treatment Not on file documented as of this encounter Procedures Procedure Name Priority Date/Time Associated Diagnosis Comments DERMATOPATH TECHNICAL REPORT Routine 06/09/2018 12:00 AM CDT documented in this encounter Results * DERMATOPATH TECHNICAL REPORT (06/09/2018 12:00 AM CDT) Case Report Dermatopathology Report Case: [id number] Authorizing Provider: Kat Luna MD Collected: 06/09/2018 12:00 AM Pathologist: Tammy Rivas MD Received: 06/10/2018 06:36 AM Specimen: Skin, left forearm 11:42 AM CDT DERMATOPATHOLOGY LABORATORY Clinical History BCC, bx proven. Check margins. Previous Bx: [id number]. 11:42 AM CDT DERMATOPATHOLOGY LABORATORY Gross Description Specimen A: Received is one formalin filled container labeled with the patient's name and designated left forearm. The specimen consists of a non-oriented ellipse of skin measuring [id number]. The epidermal surface is unremarkable. The margin is inked green. The 12 o'clock and 6 o'clock tips are submitted in cassette 1. The remainder of the ellipse is serially sectioned and submitted in cassettes 2-3. Jar 0. [facility] Dermatopathology Laboratory performed the technical component [...] characteristic determined by the Dermatopathology Laboratory at [facility]. These tests need not be, and therefore are not, approved by the [place] Food and Drug Administration. The tests are used for clinical purposes. 11:42 AM T DERMATOPATHOLOGY LABORATORY at 1142 CDT Pathology/Cytolog y TISSUE SPECIMEN FROM SKIN / Unknown 06/09/2018 06/10/2018 6:36 AM CDT us Kat Luna MD LAB - PATHOLOGY/CYTOLOGY OR DERABLES Final Result DERMATOPATHOLOGY LABORATORY [facility] - Department of Dermatology [address] [facility], 5th [place] [address], [place] [phone] documented in this encounter Visit Diagnoses Not on filedocumented in this encounter Care Teams Synchronous Motor Assembler Relationship Specialty Start Date End Date Scottie Williamson MD [address] [place] [phone] PCP - General Internal Medicine 09/22/13 documented as of this encounter
--- OUTSIDE RECORDS SUMMARY | 2025-07-04 18:23 | XMS_ITS | Encounter Summary ---
Author Organization [facility] Address [address] [place] [address] Phone Care Team Providers Care Wooling Machine Operator Name Role Phone Scottie Williamson MD Primary Care Provider Emily Blue MD Unavailable [phone] Kat Luna MD Unavailable [phone] Jose Diaz MD Unavailable [phone] Valente Torres MD Unavailable [phone] Heather Avila RN Unavailable Unavailable Thelma Brown MD Unavailable [phone] Encounter Details Date Type Department Care Team (Latest Contact Info) Description 12/09/2019 Orders Only [facility] Scanning, Provider Social History Tobacco Use Types Packs/Day Years Used Date Smoking Tobacco: Former Smokeless Tobacco: Never Sex and Gender Information Value Date Recorded Sex Assigned at Not on file Legal Sex Male 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 Gender Identity Not on file Sexual Orientation Straight 12/31/2019 9: 09 AM SCHOOL ATTENDANCE SECRETARY documented as of this encounter Plan of [...] documented as of this encounter Care Teams Wooling Machine Operator Relationship Specialty Start Date End Date Scottie Williamson MD [address] [facility] [address] [place] [address] PCP - General Internal Medicine 03/03/19 Emily Blue MD [address] [place] [address] Fellow Pulmonary Disease 10/16/21 Kat Luna MD [address] [place] [address] Referring Physician Dermatology 10/16/21 Jose Diaz MD [address] [place] [address] Referring Physician Pulmonary Disease 10/16/21 Valente Torres MD [address] [facility] DEPT OTOLARYNGOLOGY, [address] [address] Referring Physician Otolaryngology 02/07/22 Heather Avila, RN Registered Nurse 05/02/22 02/03/25 Thelma Brown MD Medical Oncologist/Transit Clerk Medical Oncology 01/14/23 documented as of this encounter
--- OUTSIDE RECORDS SUMMARY | 2025-07-04 18:23 | XMS_ITS | Encounter Summary ---
Author Organization [facility] Healthcare Address [address] [place] [address] Care Team Providers Care Relocation Associate Name Role Phone Scottie Williamson MD Primary Care Provider Emily Blue MD Unavailable Kat Luna MD Unavailable [phone] Jose Diaz MD Unavailable [phone] Valente Torres MD Unavailable [phone] Heather Avila RN Unavailable Unavailable Thelma Brown MD Unavailable [phone] Reason for Referral * Diagnostic Imaging (Routine) - Closed Specialty Diagnoses / Procedures Referred By Contac t Referred To Contact Diagnoses Osteoporosis Procedures DEXA AXIAL SKELETON BONE DENSITY 1 OR 2 SITE Scottie Williamson MD [address] [place] [address] Phone: tel: fax: [address] [phone] Referral ID Status Reason Start Date Expiration Date Visits Re quested Visits Authorized [id number] Closed 12/31/2022 01/30/2024 1 1 MACHINE OPERATOR Encounter Details Date Type Department Care Team (Late st Contact Info) Description 12/31/2022 Community Orders [facility] EpicCare Link Scottie Williamson MD [address] [facility] [address] [place] [address] ILD (interstitial lung disease) ([facility]) (Primary Dx); Osteoporosis screening; Osteoporosis Social History [...] on file Legal Sex Male 12:18 AM CHIP MACHINE OPERATOR Gender Identity Not on file Sexual Orientation Straight 12/31/2019 9: 09 AM CHIP MACHINE OPERATOR documented as of this encounter Plan [...] and agrees with it. Electronically signed by: Libertda Silver M.D. Narrative 01/23/2023 9:23 AM CDT [facility] DATE OF STUDY: 01/23/2023 HISTORY: 77-year-old man with [place]et[place] cell carcinoma, marginal zone lymphoma, interstitial lung disease on watermelon inspector steroids. He is not taking specific bone [...] OF STUDY: 01/23/2023 HISTORY: 77-year-old man with [place] Neck cell carcinoma, marginal zone lymphoma, interstitial lung disease on senior care steroids. He is not taking specific bone [...] documented as of this encounter Care Teams Relocation Associate Relationship Specialty Start Date End Date Scottie Williamson MD [address] [place] [address] PCP - General Internal Medicine 03/03/19 Emily Blue MD [address] [place] [address] Fellow Pulmonary Disease 10/16/21 Kat Luna MD [facility] [place] [address] Referring Physician Dermatology 10/16/21 Jose Diaz MD [address] [place] [address] Referring Physician Pulmonary Disease 10/16/21 Valente Torres MD [address] [facility] DEPT OTOLARYNGOLOGY, [address] [address] Referring Physician Otolaryngology 02/07/22 Heather Avila, RN Registered Nurse 05/02/22 02/03/25 Thelma Brown MD Medical Oncologist/Sociology Research Assistant Medical Oncology 01/14/23 documented as of this encounter
--- OUTSIDE RECORDS SUMMARY | 2025-07-04 18:23 | XMS_ITS | Clinical Summary ---
Author Organization [facility] Address [address] [facility] [place] [address] Care Team Providers Care Jewelry Repairer Name Role Phone Scottie Williamson MD Primary Care Provider + Source Comments [facility],non-owned Affiliates and Associated Physician Practices is amultiple site organization consisting of ambulatory clinics and hospital sitesin [place], [place], [place] and [place]. This disclosure is being madepursuant to the Care Everywhere program and may not contain all information available regarding this patient. Last updated 18.[facility] Allergies No known active allergies Medications * [...] LURIA, FLUZONE TRIVALENT; 6MO+) (IIV3) 08/03/2014,08/20/2012,10/29/2006 Covid Volofy primary monoval ent 12+ yr 0.3mL Purple [...] on file Legal Sex Male 6:27 AM MAIL CLERK BILLS Gender Identity Not on file Sexual Orientation Not on file Last Filed Vital Signs Vital Sign Reading Time Taken Comments Blood Pressure 115/64 10/10/2020 9:14 AM MAIL CLERK BILLS Pulse 85 05/10/2020 9:34 AM CDT Temperature [...] yrs (1 - 1-dose 75+ series) 2021 DEPRESSION SCREENING 10/27/2024 COVID-19 VACCINE (2024- season) 2025 07/03/2021, 12/19/2020, 11/24/2020 INFLUENZA VACCINE (#1) 2025 , 07/10/2021, 06/16/2020, Additional history exists PNEUMOCOCCAL VACCINE [...] to complete this topic Insurance [employer] [facility] MEDICARE Care Teams Jewelry Repairer Relationship Specialty Start Date End Date Scottie Williamson MD [address] [place] [phone] PCP - General Internal Medicine 09/22/13
--- NOTE | 2025-07-04 18:46 | ECG_ITS ---
Test Date: 2025-07-04 18:54:07 Measurements Intervals [place] Rate: 73 P: 72 [place]: 167 QRS: 37 QRSD: 81 T: 82 QT: 360 QTc: 398 Interpretive Statements SINUS RHYTHM WITH OCCASIONAL SUPRAVENTRICULAR PREMATURE COMPLEXES POSSIBLE RIGHT VENTRICULAR CONDUCTION DELAY [RSR (QR) IN V1/V2] NONSPECIFIC T-WAVE ABNORMALITY BORDERLINE ECG No previous ECG available for comparison Electronically Signed On 07-06-2025 15:25:10 CDT by Slava Raines M.D.
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
[2025-07-04 19:13] LABS: Hematocrit 43.1 % (42.0-52.0); Hemoglobin 13.6 g/dL (14.0-18.0); Immature Granulocyte Percent A 0.6 % (0-0.5); Lymphocytes Absolute Auto 0.88 K/mm3 (0.9-3.2); Mean Corpuscular HGB Conc 31.6 g/dl (32-36); Mean Corpuscular Hemoglobin 29.8 pg (26-34); Mean Corpuscular Volume 94.5 fl (80-100); Nucleated Red Blood Cells Absolute Auto 0.000 K/mm3 (0.0-0.012); Nucleated Red Blood Cells Perc 0.0 % (0.0-0.2); Platelet Count Result 263 k/mm3 (150-375); Red Blood Count 4.56 M/mm3 (4.6-6.20); White Blood Count 12.7 K/mm3 (4.5-10.0)
--- NOTE | 2025-07-04 19:17 | PC.NURSE ---
Report given to Ary BARRETT, all questions answered
[2025-07-04 19:27] LABS: Alanine Aminotransferase 31 U/L (6-50); Albumin Level 3.9 g/dL (3.5-5.1); Alkaline Phosphatase 68 U/L (38-126); Anion Gap 6 mmol/L (4-12); Aspartate Amino Transferase 56 U/L (17-59); Bilirubin,Total 0.4 mg/dL (0.2-1.3); Blood Urea Nitrogen 25 mg/dL (9-20); Calcium 8.9 mg/dL (8.4-10.2); Carbon Dioxide 31 mmol/L (22-30); Chloride 102 mmol/L (98-107); Estimated CRCL calculation 55 ml/min; Estimated Glomerular Filt Rate > 60; Glucose 111 mg/dL (65-110); Magnesium 2.0 mg/dL (1.6-2.3); Potassium 4.0 mmol/L (3.4-5.0); Sodium 139 mmol/L (137-145); Total Protein 7.2 g/dL (6.3-8.2)
[2025-07-04 19:31] LABS: INR 1.0; Prothrombin Time 13.3 Seconds (11.1-14.7)
[2025-07-04 19:32] LABS: Partial Thromboplastin Time 28.5 Seconds (22.3-36.8)
[2025-07-04 19:39] LABS: Troponin I < 0.012 ng/mL (0.000-0.034)
[2025-07-04] MEDS: oxyCODONE HCL (*CRX) 2.5 MG TAB IR PO (19:43)
[2025-07-04 20:00] LABS: NT Pro B Type Natriuretic Pept 136 pg/mL (19.9-100)
[2025-07-04] MEDS: SODIUM CHLORIDE 0.9% IV 500 ML 999 ML IV CONT (20:35)
[2025-07-04 21:05] LABS: Add Urine Microscopic? YES; Appearance Urine Clear (Clear); Glucose Urine UA Negative (Negative); Leukocyte Esterase Ur Negative LEU/UL (Negative); Nitrate Urine Negative (Negative); Non Pathogenic Casts 0-2; Specific Grav Ur 1.032 (1.001-1.035)
== END 2025-07-04 22:05 | disposition home or self-care (01) ==
PROVIDERS: Emergency Provider Student in an Organized Health Care Education/Training Program
DX: R55 Syncope and collapse (principal); D72.829 Elevated white blood cell count, unspecified; J84.9 Interstitial pulmonary disease, unspecified; R07.89 Other chest pain; S01.01XA Laceration without foreign body of scalp, initial encounter; R06.00 Dyspnea, unspecified; C85.89 Other specified types of non-Hodgkin lymphoma, extranodal and solid organ sites; I73.00 Raynaud's syndrome without gangrene; Z85.821 Personal history of Merkel cell carcinoma; Z87.891 Personal history of nicotine dependence; Z79.82 Long term (current) use of aspirin; Z79.52 Long term (current) use of systemic steroids; R91.8 Other nonspecific abnormal finding of lung field; W18.39XA Other fall on same level, initial encounter
CPT/HCPCS: 12001; 36415; 70450; 71045; 71250; 72125; 80053; 81001; 82948; 83735; 83880; 84484; 85025; 85610; 85730; 93005; 96360; 99284; A9270; J7040

== ENCOUNTER 2025-07-09 06:16 | Inpatient (IN) | payer OTHER, SELFPAY ==
[2025-07-09] VITALS (11 sets, daily range): BP systolic 135–164; BP diastolic 66–81; PULSE 88–110; RESP 14–20; TEMP 36.4–36.8; O2SAT 88–99; BMI 31.7
--- NOTE | ~2025-07-09 | XR_ITS ---
EXAMINATION: XR chest 1V, 07/09/2025 7:50 CDT HISTORY: coarse breath sounds COMPARISON: No comparisons available. Technique: Single view. Findings: Small basilar infiltrates and effusions. Mild pulmonary venous congestion. No pneumothorax. Moderate cardiomegaly. Mediastinal and hilar contours are within normal limits. Bony thorax no acute abnormality. Impression: CHF. Superimposed probable pneumonia Reviewed, dictated and finalized at location A. Impression: CHF. Superimposed probable pneumonia
--- NOTE | ~2025-07-09 | XR_ITS ---
EXAM/PROCEDURE: XR abdomen/kub 1V - 07/11/2025 10:25 CDT HISTORY: 79 years old Male with SBO COMPARISON: None available. TECHNIQUE: AP view(s) of the abdomen. FINDINGS: Diffuse to moderate dilatation of the small bowel with contrast going into the distal colon. Findings likely represent ileus versus partial small bowel obstruction. No free intraperitoneal air is identified on this supine radiograph. The visualized soft tissue shadows are unremarkable. No gross bony abnormalities are seen. Visualized portions of lung bases are clear. IMPRESSION: Diffuse to moderate dilatation of the small bowel with contrast going into the distal colon. Findings likely represent ileus versus partial small bowel obstruction. Reviewed, dictated and finalized at location N. IMPRESSION: Diffuse to moderate dilatation of the small bowel with contrast going into the distal colon. Findings likely represent ileus versus partial small bowel obstru ction.
--- NOTE | ~2025-07-09 | XR_ITS ---
EXAMINATION: XR abdomen gastric tube insert, 07/09/2025 11:58 CDT HISTORY: ng tube placement COMPARISON: No comparisons available. Technique: 3 view. Findings: There are dilated loops of small bowel the largest 4 cm consistent with small bowel obstruction. No free air. No abnormal calcifications No acute osseous abnormality. Nasogastric tube terminates in the stomach. Impression: 1. Small bowel obstruction Reviewed, dictated and finalized at location A. Impression: 1. Small bowel obstruction
--- NOTE | ~2025-07-09 | CT_ITS ---
EXAMINATION: CTA chest PE abdomen pel, 07/09/2025 7:38 CDT HISTORY: abd distension, not passing flatus COMPARISON: Comparison 07/04/2025. TECHNIQUE: CTA scan with 3D Reconstructions of the chest with CT scan abdomen and pelvis was performed with contrast Isovue 300, 92cc injected IV. One or more of the following dose reduction techniques were used: automated exposure control, adjustment of the mA and/or kV according to patient size, use of iterative reconstruction technique. Unless otherwise stated, incidental findings do not require dedicated follow up imaging FINDINGS: CT chest: No significant coronary calcification is present ([id number]) LUNGS: The contrast bolus is adequate, there is no pulmonary embolism identified.2 no tracheomalacia. No bronchiectasis. There is bronchial wall thickening noted with areas of mucous plugging in the lower lobes bilaterally. Moderate emphysematous changes, no areas of bullous formation. Moderate pulmona ry fibrotic changes with early honeycombing. Small basilar infiltrates are noted in the lower lobes bilaterally. Scattered punctate calcified granulomas. Trace pleural effusions. HEART AND PERICARDIUM: Mild cardiomegaly. AORTA: Atherosclerotic changes of the aorta without aneurysm. MEDIASTINUM: Unremarkable. THYROID: There are bilateral thyroid nodules the largest right lobe 1 x 1 cm, outpatient ultrasound recommended. CT abdomen: LIVER: Mild hepatic steatosis. Mild cirrhotic disease of the liver. Portal vein patent. No intrahepatic biliary duct dilatation. SPLEEN: Unremarkable, no splenomegaly. KIDNEYS: Right Kidney: Right kidney simple appearing renal cyst mid pole 4 x 4 cm with a complex lesion possible hemorrhagic cyst midpole 2.5 x 2 cm but incompletely evaluated, ultrasound recommended. Left Kidney: Left kidney subcentimeter probable simple and hemorrhagic renal cysts. ADRENAL GLANDS: Unremarkable. PANCREAS: Moderate pancreatic atrophy. GALLBLADDER/BILIARY: Unremarkable. No biliary dilatation. STOMACH AND ESOPHAGUS: Nonspecific patulous appearance of the esophagus which appears fluid-filled. Moderate hiatal hernia. The stomach appears distended. BOWEL/MESENTERY: Moderate fecal content, moderate diverticulosis, no colitis or diverticulitis. Appendix normal. Mesentery normal. Multiple dilated loops of small bowel the largest measuring 4 cm with transition point in the pelvis with decompressed small bowel loops in the pelvis. RETROPERITONEUM: Unremarkable AORTA/VASCULATURE: Normal caliber aorta. FREE FLUID OR FREE AIR: Small amount of free fluid in the pelvis.. CT pelvis: SOLID ORGANS/REPRODUCTIVE: Prostate is enlarged correlate with PSA. Small simple appearing bilateral hydroceles. BLADDER: Within normal limits. LYMPHADENOPATHY: No lymphadenopathy. OSSEOUS STRUCTURES: There are remote fractures of the left clavicle and the ribs bilaterally with healing fractures of the posterior right sixth seventh and eighth ribs which are nondisplaced. OVERLYING SOFT TISSUES: Small bilateral fat-containing inguinal hernia. IMPRESSION: 1. Negative for pulmonary embolism. CHF with early basilar posterior bronchopneumonia. Accounting for differences in technique, the findings appear improved compared to the previous exam. There are right-sided acute rib fractures detailed above with healing. 2. Small bowel obstruction. Transition point in the pelvis. 3. Incidental findings above Reviewed, dictated and finalized at location A. IMPRESSION: 1. Negative for pulmonary embolism. CHF with early basilar posterior bronchopne umonia. Accounting for differences in technique, the findings appear improved c ompared to the previous exam. There are right-sided acute rib fractures detaile d above with healing. 2. Small bowel obstruction. Transition point in the pelvis. 3. Incidental findings above
--- NOTE | ~2025-07-09 | XR_ITS ---
EXAMINATION: XR small bowel follow through, 07/10/2025 13:00 CDT HISTORY: sbo, hypaque thru NG COMPARISON: No comparisons available. Findings: Nasogastric tube terminates in the stomach. There are multiple dilated loops of small bowel the largest measuring 5.3 cm. Delayed imaging carried out to 3 hours demonstrates no significant contrast within the large bowel with contrast retained within multiple mid to distal dilated loops of small bowel. IMPRESSION: Small bowel obstruction with probable transition point in the distal small bowel Reviewed, dictated and finalized at location A. IMPRESSION: Small bowel obstruction with probable transition point in the dista l small bowel
--- OUTSIDE RECORDS SUMMARY | 2025-07-09 00:17 | XMS_ITS | Continuity of Care Document ---
Author Organization [facility] Address [address] [place] [address] Phone Care Team Providers Care Environmental Web Crawler Name Role Phone Sergey Coronel MD Unavailable Kaye vailable Allergies, Adverse Reactions, Alerts Substance Reaction Status Criticality No Known Allergies Active No Inform ation Medications Medication Instructions Dosage Effective Dates (start - stop) Status Comments metoclopramide 5 mg tablet take 1 tablet by oral route 4 times every day 30 minutes before meals and at bedtime; - Active For delayed gastric emptying, not for ileus prednisone 20 mg tablet take 2 tablet by oral route every day 40 MG - Active cyclobenzaprine 5 mg tablet take 1 tablet by oral route 3 times every day 5 MG - Active oxycodone 5 mg tablet take 1 tablet by oral route every 4 - 6 hours as needed 5 MG - Active Update Frequency change 07/07/2025 famotidine 20 mg tablet take 1 tablet by oral route every 12 hours 20 MG - Active Tylenol Extra Strength 500 mg tablet take 2 tablet by oral route every 8 hours as needed 1000 MG - Active Centrum Minis Men 50 Plus 150 mcg-30 mcg-300 mcg-150 mcg tablet - Active lidocaine 5 % topical patch apply 1 patch by topical route every day (May wear up to 12hours.) 1.00 patch - Active nifedipine ER 60 mg tablet,extended release TAKE 1 TABLET BY MOUTH ONCE A DAY - Active aspirin 81 mg chewable tablet take 1 tablet by oral route every day - Active prednisone 5 mg tablet take 1 Tablet by oral route every day 1 Tablet - Active Procedures Procedure Date FALL RISK ASSESSMENT DOC'D DSCHRG MED/CURRENT MED MERGE Transitional Care- 14 Days Of Discharge BODY MASS INDEX DOCD SYST BP LT 130 MM HG DIAST BP < 80 MM HG DSCHRG MED/CURRENT MED MERGE MED LIST DOCD IN RCRD Pt inelig neg scrn depres FALL RISK ASSESSMENT DOC'D OFFICE [id number] BODY MASS INDEX DOCD SYST BP LT 130 MM HG DIAST BP < 80 MM HG FALL RISK ASSESSMENT DOC'D PRES/ABSN URINE INCON ASSESS Admin influenza virus vac RIV3 VACCINE NO PRESERV IM Covid Vaccine Admin, Single Dose 2023 Pfizer Comirnaty tri-sucrose COVID Vacci ne 30 mcg/ OFFICE [id number] BODY MASS INDEX DOCD SYST BP GE 130 - 139MM HG DIAST BP < 80 MM HG Pt inelig neg scrn depres FALL RISK ASSESSMENT DOC'D PRES/ABSN URINE INCON ASSESS Admin influenza virus vac Flu Vac, quad (RIV4), Preservative And A ntibiotic Free IM OFFICE LKAJS-BIY-HAVHKENC BODY MASS INDEX DOCD SYST BP LT 130 MM HG DIAST BP < 80 MM HG Pt inelig neg scrn depres OFFICE [id number] BODY MASS INDEX DOCD SYST BP LT 130 MM HG DIAST BP < 80 MM HG FALL RISK ASSESSMENT DOC'D PRES/ABSN URINE INCON ASSESS OFFICE [id number] BODY MASS INDEX DOCD SYST BP LT 130 MM HG DIAST BP < 80 MM HG DSCHRG MED/CURRENT MED MERGE OFFICE [id number]-EFJ-[id number] BODY MASS INDEX DOCD SYST BP GE 130 - 139MM HG DIAST BP < 80 MM HG DSCHRG MED/CURRENT MED MERGE DSCHRG MED/CURRENT MED MERGE FALL RISK ASSESSMENT DOC'D PRES/ABSN URINE INCON ASSESS OFFICE [id number] BODY MASS INDEX DOCD SYST BP LT [...] PLAN DOC'D PRES/ABSN URINE INCON ASSESS OFFICE [id number] BODY MASS INDEX DOCD SYST BP LT 130 MM HG DIAST BP < 80 MM HG FALL PLAN OF CARE DOC'D URINE INCON PLAN DOC'D PRES/ABSN URINE INCON ASSESS OFFICE CAAVY-QJM-[id number] BODY MASS INDEX DOCD SYST BP LT 130 MM HG DIAST BP < 80 MM HG Advance Directives Directive Yes / No Effective Date File Name No Information Encounters Encounter Description Practice Location Reason(s) For Visit Diagnoses Date Provider Providers Copied on Encounter [facility], [address], [place], [place], [address] , tel: [phone] [facility] No Information Jun- 5 Homer Pedersen. [address], [place], [place], [address], [place]. tel:[phone] [facility], [address], [place], [place], [address] , tel: [phone] [facility] No Information 5 Homer Pedersen. [address], [place], [place], [address], [place]. tel:[phone] Transitional Care- 14 Days Of Discharge [facility], [address], [place], [place], [address] , [place] tel: [phone] [facility] ER follow up (chief complaint) Hospital discharge follow-upRecurre nt low back painBody mass index [BMI] 31.0-31.9, adultVasovagal episodeEssential hypertensionRayn aud phenomenon with gangreneILD (interstitial lung disease)Lacerati on of fascia of head Sep- 5 Homer Pedersen. [address], [place], [place], [address], [place]. tel:[phone] Referring Provider: Sergey rucker, [address], [place], [address] . tel:[phone] [facility], [address], [place], [place], [address] , [place] tel: [phone] [facility] No Information Sep-0 5 Homer Pedersen. [address], [place], [place], [address], [place]. tel:[phone] Referring Provider: Sergey rucker, [address], [place], [address] . tel:[phone] [facility], [address], [place], [address] , [place] tel:[phone] [facility] Pain, joint, knee, right José Antonio- 5 Homer Pedersen. [address], [place], [place], [address], [place]. tel:[phone] [facility], [address], [place], [place], [address] , [place] tel:[phone] [facility] Pain, joint, knee, right 5 Homer Pedersen. [facility] [address], [place], [place], [address], [place]. tel:[phone] [facility], [address], [place], [place], [address] , [place] tel:[phone] [facility] Evaluation of hearing impairment Apr-0 5 Homer Pedersen. [address], [facility] [address], [place], [place], [address], [place]. tel:[phone] Referring Provider: Sergey rucker, [facility] [address], [place], [address] . tel:[phone] [facility], [address], [place], [place], [address] , [place] tel:[phone] [facility] No Information 5 Homer Pedersen. [address], [place], [place], [address], [place]. tel:[phone] Referring Provider: Sergey rucker, [facility] [address], [place], [address] . tel:[phone] OFFICE ESTVD-YWH-DQD [facility], [address], [place], [place], [address] , [place] tel: [phone] [facility] acute visit (chief complaint) Vaccine counselingTendin itis of right kneeBorderline osteopeniaRaynau d's syndrome without gangreneBody mass index [BMI] 32.0-32.9, adult Dec-12 01- 5 Homer Pedersen. [address], [place], [address], [place]. [phone] Referring Provider: Sergey rucker, [address], [place], [address] . tel:[phone] OFFICE KBSLT-NQA-DRQ [facility], [address], [place], [address] , [place] tel: [phone] [facility] Chronic Conditions (chief complaint)M edicare preventive (chief complaint) Essential (primary) hypertensionIdio pathic pulmonary fibrosisAtherosc lerosis of aortaRaynaud's syndrome without gangreneGastro-e sophageal reflux disease without esophagitisMerke l cell carcinoma of scalp and neckBody mass index [BMI] 31.0-31.9, adultJoint stiffnessCatarac t of both eyes, unspecified cataract typeEncntr for general adult medical exam w/o abnormal findings 4 Homer Pedersen. [address], [place], [place], [address], [place]. [phone] Referring Provider: Sergey rucker, [address], [place], [address] . tel:[phone] OFFICE RAJMM-PZX-OVA [facility], [address], [place], [place], [address] , [place] tel: [phone] [facility] Chronic Conditions (chief complaint) Essential (primary) hypertensionIdio pathic pulmonary fibrosisRaynaud' s syndrome without gangreneGastro-e sophageal reflux disease without esophagitisMerke l cell carcinoma of scalp and neckEncounter for immunizationLow back pain, unspecifiedBody mass index [BMI] 31.0-31.9, adult Sep- 3 Emmett Ana. [address], [place], [place], [address], [place]. tel:[phone] Referring Provider: Scottie Williamson , [address] [place] [address], [address] . tel:[phone] OFFICE WRCVD-KZB-PGT [facility], [address], [place], [place], [address] , [place] tel:[phone] [facility] Chronic Conditions (chief complaint) Body mass index [BMI] 31.0-31.9, adultEssential (primary) hypertensionIdio pathic pulmonary fibrosisAtherosc lerosis of aorta 3 Clay Rubin. [address] [place] [address], [id number], [place]. tel:[phone] Referring Provider: Scottie Williamson , [address] [place] [address], [address] . tel:[phone] OFFICE TZUSF-NZX-MNA [facility], [address], [place], [place], [address] , [place] tel:[phone] [facility] Chronic Conditions (chief complaint) Idiopathic pulmonary fibrosisBenign essential hypertension 2 Clay Rubin. [address] [place] [address], [id number], [place]. tel:[phone] Referring Provider: Scottie Williamson , [address] [place] [address], [address] . tel:[phone] OFFICE WEFME-WGQ-VYX [facility], [address], [place], [place], [address] , [place] tel:[phone] [facility] Hospital Follow-Up (chief complaint)C hronic Conditions (chief complaint) Body mass index [BMI] 31.0-31.9, adultBenign essential hypertensionAthe reymundoosis of aortaIdiopathic pulmonary fibrosisLung mass 2 Clay Rubin. [address] [place] [address], [address], [place]. tel:[phone] Referring Provider: Scottie Williamson , [address] [place] [address], [address] . tel:[phone] [facility], [address], [place], [place], [address] , tel:[phone] [facility] No Information 2 Clay Rubin. [address] [place] [address], [address], [place]. tel:[phone] Referring Provider: Scottie Williamson , [address] [place] [address], [address] . tel:[phone] [facility], [address], [place], [place], [address] , tel:[phone] [facility] No Information 2 Clay Rubin. [address] [place] [address], [id number], [place]. tel:[phone] Referring Provider: Scottie Williamson , [address] [place] [address], [address] . tel:[phone] OFFICE SWRBT-UFQ-OYU FIOR [facility], [address], [place], [place], [address] , [phone] [facility] follow up (chief complaint)D izziness (chief complaint)C hronic Conditions (chief complaint) Body mass index (BMI) 30.0-30.9, adultBenign paroxysmal positional vertigo, unspecified lateralityBenign essential hypertensionAthe rosclerosis of aortaIdiopathic pulmonary fibrosis 1 Clay Rubin. [address] [place] [address], [id number], . tel:[phone] Referring Provider: Scottie Williamson , [address] [place] [address], [address] . tel:[phone] [facility], [address], [place], [place], [address] , [place] tel: [phone] [facility] No Information 1 Clay Rubin. [address] [place], [place], [address], . tel:[phone] [facility], [address], [place], [place], [address] , tel: [phone] [facility] No Information 1 Benita Matthewshleen. [facility]7 [facility] [address], [place], [place], [address]. [phone] [facility], [address], [place], [place], [address] , tel: [phone] [facility] Medicare preventive (chief complaint)C hronic Conditions (chief complaint) Body mass index (BMI) 29.0-29.9, adultEncounter for general adult medical examination without abnormal findingsBenign essential hypertensionAthe rosclerosis of aortaIdiopathic pulmonary fibrosisRaynaud' s syndrome without gangrene 0 Clay Rubin. [facility] [place], [place], [address], [place]. tel:[phone] Referring Provider: Scottie Williamson , [address] [place] [address], [address] . tel:[phone] OFFICE UIVQT-DNX-CWC FIOR [facility], [address], [place], [place], [address] , [place] tel: [phone] [facility] Chronic Conditions (chief complaint) Interstitial pulmonary disease, unspecifiedRayna ud's disease without gangreneBenign essential hypertensionAthe rosclerosis of aortaSS-A antibody positiveBody mass index (BMI) 30.0-30.9, adultGastro-esop hageal reflux disease without esophagitis 9 Emmett Perez. [address], [facility] [address], [place], [place], [address], [place]. tel:[phone] Referring Provider: Scottie Williamson , [address] [place] [address], [address] . tel:[phone] [facility], [address], [place], [place], [address] , [place] [phone] [facility] No Information Clay Rubin. [address] [place] [address], [id number], [place]. tel:[phone] OFFICE GIGFY-LCL-PBA FIOR [facility], [address], [place], [place], [address] , [place] tel:[phone] [facility] follow up (chief complaint)C hronic Conditions (chief complaint) Essential (primary) hypertensionInte rstitial pulmonary disease, unspecifiedEncou nter for screening for osteoporosisAthe rosclerosis of aorta 9 Clay Rubin. [address] [place] [address], [id number], [place]. tel:[phone] Referring Provider: Scottie Williamson , [address] [place] [address], [address] . tel:[phone] [facility], [address], [place], [address] , [place] tel:[phone] [facility] Chronic Conditions (chief complaint) Raynaud's disease without gangreneElevated antinuclear antibody (EL) levelEssential (primary) hypertensionShor tness of breathBody mass index (BMI) 30.0-30.9, adult Apr-3 0-201 9 Emmett Perez. [address], [facility] [address], [place], [address], [place]. tel:[phone] Referring Provider: Scottie Williamson , [address] [place] [address], [address] . tel:[phone] [facility], [address], [place], [place], [address] , [place] tel:[phone] [facility] Dyspnea on exertionRaynaud' s disease without gangreneElevated antinuclear antibody (EL) level Apr-1 5- 9 Clay Rubin. [facility] [place], [place], [address], [place]. tel:[phone] [facility], [address], [place], [place], [address] , [place] tel: [phone] [facility] Elevated antinuclear antibody (EL) levelRaynaud's disease without gangreneDyspnea on exertion Apr-0 8- 9 Emmett Perez. [address], [place], [place], [address], [place]. tel:[phone] [facility] [address], [place], [place], [address] , [place] tel: [phone] [facility] Essential (primary) hypertensionShor tness of breathOther specified systemic involvement of connective tissue Apr-0 - 9 Clay Rubin. [address] [place] [address], [id number], [place]. tel:[phone] Referring Provider: Scottie Williamson , [address] [place] [address], [address] . tel:[phone] [facility] [address], [place], [place], [address] , [place] tel: [phone] [facility] Body mass index (BMI) 30.0-30.9, adultEssential (primary) hypertensionShor tness of breathLightheade dRaynaud's disease without gangreneOther specified systemic involvement of connective tissue Mar-2 - 9 Emmett Ana. [address], [facility] [address], [place], [place], [address], [place]. tel:[phone] Referring Provider: Scottie Williamson , [address] [place] [address], [address] . tel:[phone] [facility] [address], [place], [place], [address] , [place] tel: [phone] [facility] Personal history of colonic polyps 9 Clay Rubin. [address] [place] [address], [address], [place]. tel:[phone] [facility], [address], [place], [place], [address] , tel: [phone] [facility] No Information 8 Clay Rubin. [address] [place] [address], [address], [place]. [phone] [facility], [address], [place], [place], [address] , [place] tel: [phone] [facility] Right-sided chest painDyspnea on exertion 8 Clay Rubin. [address] [place] [address], [address], [place]. tel:[phone] [facility], [address], [place], [place], [address] , [place] tel: [phone] [facility] Body mass index (BMI) 31.0-31.9, adultRight-sided chest painElevated serum globulin level 8 Emmett Perez. [address] [address], [place], [place], [address], [place]. tel:[phone] Referring Provider: Scottie Williamson , [address] [place] [address], [address] . tel:[phone] [facility] [address], [place], [place], [address] , [place] tel: [phone] [facility] Body mass index (BMI) 31.0-31.9, adultImmunizatio n counselingFatigu e, unspecified typeElevated serum globulin levelBenign essential hypertension 8 Clay Rubin. [address] [place] [address], [id number], [place]. [phone] Referring Provider: Scottie Williamson , [address] [place] [address], [address] . tel:[phone] [facility], [address], [place], [place], [address] , tel:[phone] [facility] Body mass index (BMI) 31.0-31.9, adultChest discomfortCoughA therosclerosis of aorta 8 Clay Rubin. [address] [place] [address], [address], . tel:[phone] Referring Provider: Scottie Williamson , [address] [place] [address], [address] . tel:[phone] [facility], [address], [place], [place], [address] , [phone] [facility] Cough 8 Bay Mims Ekaterina. [address], [facility] [address], [place], [place], [address], . tel:[phone] Referring Provider: Scottie Williamson , [address] [place] [address], [address] . tel:[phone] [facility], [address], [place], [place], [address] , tel:[phone] [facility] Pre-ulcerative calluses 8 Clay Rubin. [address] [place] [address], [address], . tel:[phone] [facility], [address], [place], [place], [address] , [place] tel:[phone] [facility] No Information 7 Clay Rubin. [address] [place] [address], [id number], [place]. tel:[phone] [facility], [address], [place], [place], [address] , tel:[phone] [facility] Encounter for general adult medical examination without abnormal findingsEssentia l (primary) hypertensionGast ro-esophageal reflux disease without esophagitisForme r smokerScreening for abdominal aortic aneurysmEncounte r for screening for lung cancerElevated glucose levelSkin cancer, basal cell Apr- 7 Emmett Perez. [address] [facility] [address], [place], [place], [address], [place]. tel:[phone] Referring Provider: Scottie Williamson , [address] [place] [address], [address] . tel:[phone] [facility], [address], [place], [place], [address] , [place] tel: [phone] [facility] No Information 6 Clay Rubin. [address] [place] [address], [id number], [place]. tel:[phone] [facility], [address], [place], [place], [address] , [place] tel: [phone] [facility] Encounter for general adult medical examination without abnormal findingsEssentia l (primary) hypertensionGast ro-esophageal reflux disease without esophagitisFatig ue, unspecified typeCervicalgia Jan- 6 Emmett Perez. [address], [address], [place]. tel:[phone] Referring Provider: Scottie Williamson , [address] [place] [address], [address] . tel:[phone] [facility], [address], [place], [place], [address] , [place] tel: [phone] [facility] No Information 0 5 Clay Rubin. [address] [place] [address], [id number], [place]. tel:[phone] [facility] [address], [place], [place], [address] , [place] tel: [phone] [facility] Gastritis - 5 Emmett Perez. [address] [facility] [address], [place], [place], [address], [place]. tel:[phone] [facility], [address], [place], [place], [address] , [place] tel: [phone] [facility] Gastritis 2 5 Emmett Dixonen. [address], [address], [place]. tel:[phone] Referring Provider: Scottie Williamson , [address] [place] [address], [address] . tel:[phone] [facility], [address], [place], [place], [address] , [place] tel: [phone] [facility] Actinic keratoses 4 Clay Rubin. [address] [place] [address], [id number], [place]. tel:[phone] [facility] [address], [place], [place], [address] , [place] tel: [phone] [facility] Benign essential hypertensionHx of skin cancer, basal cellLUMBAGOESOPH AGEAL REFLUXJOINT PAIN-L/LEGFlu vaccine need 4 Emmett Perez. [address], [address], [place]. tel:[phone] Referring Provider: Scottie Williamson , [address] [place] [address], [address] . 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 [address] [place] [address], [address], [place]. tel:[phone] [facility] [address], [place], [address] , [place] tel: [phone] [facility] Actinic keratosesHx of skin cancer, basal cell Jan-0 4 Clay Rubin. [address] [place] [address], [address], [place]. tel:[phone] [facility], [address], [place], [place], [address] , [place] tel:[phone] [facility] No Information 3 Clay Rubin. [address] [place] [address], [address], [place]. tel:[phone] [facility], [address], [place], [place], [address] , [place] tel:[phone] [facility] Benign essential hypertensionSpec ial screening for malignant neoplasms, colonNeed for prophylactic vaccination and inoculation against streptococcus pneumoniae [pneumococcus] 3 Clay Rubin. [address] [place] [address], [id number], [place]. tel:[phone] Referring Provider: Scottie Williamson , [address] [place] [address], [address] . tel:[phone] [facility] [address], [place], [place], [address] , [place] tel:[phone] [facility] Routine general medical examination at a health care facilityBenign essential hypertension 2 Clay Rubin. [address] [place] [address], [id number], [place]. tel:[phone] Referring Provider: Scottie Williamson , [address] [place] [address], [address] . tel:[phone] [facility], [address], [place], [place], [address] , [place] [phone] [facility] Skin lesions, generalized Jan- 4201 2 Garret Jackson. [facility], [place], [address]. tel:[phone] Referring Provider: Scottie Williamson , [address] [place] [address], [address] . tel:[phone] [facility] [address], [place], [place], [address] , tel: [phone] [facility] NEED FOR PROPHYLACTIC VACCINATION WITH COMBINED DIPHTHERIA-TETAN US-PERTUSSIS (DTP) (DTAP) VACCINE 1 Clay Rubin. [address] [place] [address], [id number], . [phone] Referring Provider: Scottie Williamson , [address] [place] [address], [address] . tel:[phone] [id number] [facility], [address], [place], [place], [id number] , tel: [phone] [facility] Disturbance of skin sensation 1 Clay Rubin. [address] [place] [address], [id number], . tel:[phone] Referring Provider: Scottie Williamson , [address] [place] [address], [address] . tel:[phone] [facility], [address], [place], [place], [id number] , tel: [phone] [facility] BENIGN HYPERTENSION -201 0 Clay Rubin. [address] [place] [address], [id number], . tel:[phone] [facility], [address], [place], [place], [id number] , tel: [phone] [facility] ESOPHAGEAL REFLUX - 0 Junito Carpio. [address] [facility] [place], [place], [place], [id number]. tel:[phone] [facility], [address], [place], [place], [id number] , [place] tel: [phone] [facility] BPH LOC W/O UR OBS/LUTS Dec-0 4-200 9 Clay Rubin. [address] [place] [address], [id number], . tel:[phone] [facility], [address], [place], [place], [address] , [place] tel: [phone] [facility] LUMBAGO 8 Conversion Doctor. [address] [facility], [place], [address], [place]. [facility], [address], [place], [place], [id number] , [place] tel: [phone] [facility] SCRN MALIG NEOP-PROSTATE 8 Clay Rubin. [address] [place] [address], [id number], [place]. tel:[phone] [facility], [address], [place], [place], [address] , [place] tel: [phone] [facility] ROUTINE MEDICAL EXAM 7 Clay Rubin. [address] [place] [address], [id number], [place]. tel:[phone] [facility], [address], [place], [place], [id number] , [place] tel: [phone] [facility] URINARY HESITANCYURINARY FREQUENCY 7 Clay Rubin. [facility] [place], [place], [id number], [place]. tel:[phone] [facility], [address], [place], [place], [id number] , [place] tel: [phone] [facility] URIN TRACT INFECTION NOS 7 Junito Carpio. [address] [facility], [place], [id number]. tel:[phone] [facility], [address], [place], [place], [address] , [place] tel: [phone] [facility] VACCIN FOR INFLUENZA 7 Clay Rubin. [address] [place] [address], [id number], [place]. tel:[phone] [facility], [address], [place], [place], [id number] , [place] tel: [phone] [facility] DIZZINESS AND GIDDINESS 6 Clay Rubin. [address] [place], [place], [id number], [place]. tel:[phone] [facility], [address], [place], [place], [id number] , tel:[phone] [facility] IMPOTENCE, ORGANIC ORIGN José Antonio- 0-200 5 Clay Rubin. [address] [place], [place], [id number], [place]. tel:[phone] [facility], [address], [place], [place], [address] , tel: [phone] [facility] JOINT PAIN-L/LEG 3200 2 Clay Rubin. [address] [place], [place], [id number], [place]. tel:[phone] [facility], [address], [place], [place], [address] , tel: [phone] [facility] TOBACCO USE DISORDER 6-200 0 Clay Rubin. [address] [place], [place], [address], [place]. tel:[phone] Family History Family Member Type Diagnosis Age [...] days apart administered Source: Other Provid er Pfizer-BioNTTenderTree COVID19 Vaccine, 0.3mL per dose, 2 doses, administered 21 days apart administered Source: Other Regist ry Pfizer-BioNTech COVID19 Vaccine, 0.3mL per dose, 2 doses, administered 21 days apart administered Source: Other Regist ry Fluzone High-Dose, high dose , preservative free administered Note: [facility] ; Source: Other Registry Fluzone High-Dose, high dose , preservative free administered Note: Ginger ; Marichuy urce: Other Provider SHINGRIX (Zoster vaccine recombinant, adjuvanted) administered Note: Edgar ; Source: Other Provider Fluzone High-Dose, high dose , preservative free administered Note: Edgar ; Brigitte rce: Other Provider SHINGRIX (Zoster vaccine recombinant, adjuvanted) administered Note: [facility] ; Brigitte rce: Other Provider Fluzone Quad [id number], spli t virus, 0.5mL dosage administered Note: [...] or older) administered Source: New Immunization Record [id number] - Influenza administered Source: Marichuy christianson Unspecified Payers Payer name Insurance type Covered constitution party ID John Paul jimenez(s) [employer] PPO MB [id number] [employer] PPO MB [id number] [employer] MB [id number] [employer] MB [id number] Social History Type Description Quantity Date Captured Comments Sex Male Smoking Status No Information Sexual Orientation Straight or heterosexual Gender Identity [...] and counseling completed Referral Ordered: Physical Therapy [facility] Physical Therapy [facility] (related to Pain, joint, knee, right) ordered Referral Referred To: Physical Therapy [facility] [address] [place], [phone] Ordered: Referrals: Physical Therapy. Location: [facility] Physical [facility]. Evaluation/diagnostic/treatment - Level 3 ordered Referral Referred To: [address] [place] [address], [address] [phone] Ordered: X-RAY EXAM OF KNEE, COMPLETE (4+ VIEWS) Bilateral Right ordered Referral Referred To: [address] [place] [address], [address] [phone] Ordered: Hearing examination ordered Referral Ordered: DEXA of spine and hip ordered Appointment Dani Batista BOOKED Patient Education Shoulder Separ ation: Rehab Exercises completed Patient Education Knee: Exercises complet ed Future Order: Radiology Order US for abdominal aortic aneurysm (AAA) screening (40362), Sent on: Sent Future Order: Radiology Order AB I (ankle brachial index) Bilateral extremities (44402), Body Site: extremities, Sent on: Sent History Of Present Illness Encounter Date Complaint History Of Prese nt Illness ER follow up 79-year-old male presents to the clinic for emergency room follow-up. The patient presented to the emergency room due to a syncopal episode and striking his head on his back. Imaging was completed and he was discharged home. We spoke over the phone and discussed pain control. Discussed Tylenol and oxycodone.The patient was last seen for an acute visit due to pain. Chart review, no past history of orthopedic evaluation. A bone density scan was done in 2022 which revealed osteopenia. With a 10-year probability for major osteoporotic fracture of 11%.The patient was walking down the stairs at 4pm. He put his hand under the sink and had a syncopal episode. He does not recall anything after the fall. He sustained a laceration to the head. He had three asaf placed. Reports that this has not happened in the past. HE did complete a bike ride on Friday which he does not typically do. He does report low fluid intake. He eats food prepared by his . HTN- he does miss nifedipine at times at night. ILD- continues to take prednisone. 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 The problem is acute. The patient describes it as (an) imbalance and unstable horizon. Pertinent negatives include diplopia, ear drainage, fever, hearing loss, incoordination, nausea, otalgia, slurred speech, tinnitus and vomiting. Chronic Conditions *See Chronic Conditions HPI follow up Chronic Conditions *See Chronic Conditions HPI Medicare preventive A Health Ris k Assessment [...] No Information Instructions Date Instruction Additional Infor mation Remove asaf in 7 days Related to Laceration of fascia of head Continue with prednisone Related to ILD (interstitial lung disease) I recommend Tylenol 1000 mg every 8 hoursI recommend oxycodone for break through pain Use of lidocaine patches 12 hours on and 12 hours off. 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 I recommend nutritious meals and caloric intake. Related to Vasovagal episode We reviewed your zoey rgency room visit. 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 Relate d to [place] cell carcinoma of scalp and neck Please [...] continue current medication regimen.Please call PCP or SUGAR PRESSER for BP readings consistently above goal, 130/80 [...] remain in the ca re of your color developer. You remain on daily prednisone. I ordered a bone density. Please call [phone] to schedule a bone density of your [...] your lung mass. Related to Lung mass You remain on azathi oprine for you lung disease Related to Idiopathic pulmonary fibrosis I recommend you cont inue current medication. Related to Atherosclerosis of aorta I recommend you rest art nifedipine ER [...] home once a week.Please call PCP or SUGAR PRESSER for BP readings consistently above goal, 130/80 [...] than 2-3x/week, please notify your PCP or SUGAR PRESSER. Related to Gastro-esophageal reflux disease without esophagitis No more than 15grams of saturated fat daily.Increase fiber intake to 25 grams per day.Increase exercise to 30 minutes 4x/week. 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 Related to Raynaud's disease without gangrene Continue per Dr Emily zhong and Dr Falk. Related to Interstitial pulmonary disease, unspecified Your blood pressure is controlled today.Please continue current medication regimen.Please call PCP or SUGAR PRESSER for BP readings consistently above goal, 130/80 or higher. Do not add salt to your food. Use fresh herbs, lemon or Mrs Dash seasonings. Related to Benign essential hypertension Dietary management [...] provider is:Dr Rosalie Elizaldel[address], [place], [place] [address]Toine: Related to Elevated antinuclear antibody (EL) level Your blood pressure is controlled today.Please continue current medication regimen.Please call PCP or SUGAR PRESSER for BP readings consistently above goal, 130/80 [...] management Medication management Assessments Type Assessment Date No Information Patient Care Teams Name Effective Dates (start - stop) Status Members No Information
[2025-07-09 06:51] LABS: Hematocrit 49.1 % (42.0-52.0); Hemoglobin 15.7 g/dL (14.0-18.0); Immature Granulocyte Percent A 0.5 % (0-0.5); Lymphocytes Absolute Auto 0.71 K/mm3 (0.9-3.2); Mean Corpuscular HGB Conc 32.0 g/dl (32-36); Mean Corpuscular Hemoglobin 29.5 pg (26-34); Mean Corpuscular Volume 92.3 fl (80-100); Nucleated Red Blood Cells Absolute Auto 0.000 K/mm3 (0.0-0.012); Nucleated Red Blood Cells Perc 0.0 % (0.0-0.2); Platelet Count Result 449 k/mm3 (150-375); Red Blood Count 5.32 M/mm3 (4.6-6.20); White Blood Count 16.5 K/mm3 (4.5-10.0)
[2025-07-09 07:02] LABS: Alanine Aminotransferase 33 U/L (6-50); Albumin Level 4.4 g/dL (3.5-5.1); Alkaline Phosphatase 83 U/L (38-126); Anion Gap 15 mmol/L (4-12); Aspartate Amino Transferase 38 U/L (17-59); Bilirubin,Total 0.9 mg/dL (0.2-1.3); Blood Urea Nitrogen 49 mg/dL (9-20); Calcium 10.1 mg/dL (8.4-10.2); Carbon Dioxide 29 mmol/L (22-30); Chloride 87 mmol/L (98-107); Estimated CRCL calculation 46 ml/min; Estimated Glomerular Filt Rate 50; Glucose 164 mg/dL (65-110); Lipase 30 U/L (23-300); Potassium 4.3 mmol/L (3.4-5.0); Sodium 131 mmol/L (137-145); Total Protein 8.6 g/dL (6.3-8.2)
[2025-07-09 07:07] LABS: Add Urine Microscopic? YES; Appearance Urine Clear (Clear); Glucose Urine UA Negative (Negative); Leukocyte Esterase Ur Negative LEU/UL (Negative); Need Manual Microscopic Reviewed; Nitrate Urine Negative (Negative); Non Pathogenic Casts >20; Specific Grav Ur 1.031 (1.001-1.035)
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
--- NOTE | 2025-07-09 07:17 | ECG_ITS ---
Test Date: 2025-07-09 07:23:59 Measurements Intervals [place] Rate: 89 P: 56 NM: 168 QRS: 21 QRSD: 77 T: 44 QT: 330 QTc: 403 Interpretive Statements SINUS RHYTHM POSSIBLE LEFT ATRIAL ENLARGEMENT [-0.1mV P-WAVE IN V1/V2] NONSPECIFIC ST & T-WAVE ABNORMALITY ABNORMAL ECG Compared to ECG 07/04/2025 18:54:07 No significant changes Electronically Signed On 07-09-2025 12:23:47 CDT by Pérez Marks M.D.
[2025-07-09] MEDS: SODIUM CHLORIDE 0.9% IV 1,000 ML 999 ML IV CONT (07:26)
[2025-07-09] MEDS: HYDROmorphone HCL INJ (*CRX) 1 MG/ML SYR 0.5 MG IV PUSH ×3 (07:31→18:06)
--- NOTE | 2025-07-09 07:39 | PC.NURSE ---
patient taken to CT before labs could be drawn.
--- OUTSIDE RECORDS SUMMARY | 2025-07-09 07:47 | XMS_ITS | Encounter Summary ---
Author Organization [facility] Address [address] [place] [address] Phone Care Team Providers Care Control Chemist Name Role Phone Scottie Williamson MD Primary Care Provider Emily Blue MD Unavailable [phone] Kat Luna MD Unavailable [phone] Jose Diaz MD Unavailable [phone] Valente Torres MD Unavailable [phone] Heather Avila RN Unavailable Unavailable Thelma Brown MD Unavailable Encounter Details Date Type Department Care Team (Late st Contact Info) Description 07/17/2022 Orders Only [facility] ([facility]) - [facility] Medicine ENT [address] [facility] [address] [place] [address] [place] [address] Valente Torres MD [address] [place], [place] [id number] Thyroid nodule (Primary Dx) Social History Tobacco [...] on file Legal Sex 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 Gender Identity Not on file Sexual Orientation Straight 12/31/2019 9: 09 AM 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 documented as of this encounter Plan of Treatment Not on file documented as of this encounter Visit Diagnoses Diagnosis Thyroid nodule- Primary Nontoxic uninodular goiter documented in this encounter Additional Health Concerns Infection Onset Date Last Indicated Resolved Time COVID: Suspected 07/02/2024 07/02/2024 07/02/2024 12:21 PM CDT Rhino/Enterovirus 07/02/2024 07/02/2024 07/09/2024 3:05 AM CDT documented as of this encounter Care Teams Control Chemist Relationship Specialty Start Date End Date Scottie Williamson MD [address] [address] PCP - General Internal Medicine 03/03/19 Emily Blue MD [address] [place] [address] Fellow Pulmonary Disease 10/16/21 Kat Luna MD [address] [place] [address] Referring Physician Dermatology 10/16/21 Jose Diaz MD [address] [place] [address] Referring Physician Pulmonary Disease 10/16/21 Valente Torres MD [address] [facility], [address] [address] Referring Physician Otolaryngology 02/07/22 Heather Avila, RN Registered Nurse 05/02/22 02/03/25 Thelma Brown MD Medical Oncologist/Software Maintenance Engineer Medical Oncology 01/14/23 documented as of this encounter
--- OUTSIDE RECORDS SUMMARY | 2025-07-09 07:47 | XMS_ITS | Clinical Summary ---
Author Organization [facility] Address [address] [place] [address] Care Team Providers Care Movie Theater Manager Name Role Phone Scottie Williamson MD Primary Care Provider Emily Blue MD Unavailable [phone] Kat Luna MD Unavailable [phone] Jose Diaz MD Unavailable [phone] Valente Torres MD Unavailable [phone] Thelma Brown MD Unavailable [phone] Allergies No known active allergies Medications [...] 11/30/2021 Assessment & Plan (11/30/2021 7:35 AM GAS MAIN FITTER): - takes oxy at home - pain following to help with acute pain issues Nausea 11/30/2021 Assessment & Plan (12/03/2021 7:22 AM GAS MAIN FITTER): - improved - 12/02 KUB consistent w post op ileus, now resolved - prn antiemetics - scheduled miralax - protonix BID - azathiopine IV - maalox - continue POPM - OOB - advance diet to regular Lung mass 11/29/2021 Mass of lower lobe of left lung 11/08/2021 Assessment & Plan (12/03/2021 7:21 AM GAS MAIN FITTER): Left thoracotomy, lysis of adhesions, and left lower lobe diagnostic wedge resection - chest tubes all out - pain control with POPM - OOB with PT Consolidation of left lower lobe of lung 021 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 Overview (10/12/2021): Added automatically from request for surgery [id number] Raynaud's disease 10/12/2021 Benign paroxysmal positional vertigo 10/12/2021 High risk medication use 10/09/2020 Basal cell carcinoma (BCC) of right oriental orthodox regio n 09/08/2019 NSIP (nonspecific interstitial pneumonia) [...] 07/20/2007 Assessment & Plan (11/30/2021 7:29 AM GAS MAIN FITTER): - monitor and restart home medications as BP tolerates Pain in joint involving lower leg 07/19/2002 ILD (interstitial lung disease) ([facility]) Assessment & Plan (12/03/2021 7:20 AM GAS MAIN FITTER): 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 - sees pulmonary medicince - on room air now - resume home medications as indicated Immunizations Immunization Administration Dates Next Due COVID-19 MRNA (Flowbox) .25 ML (25 MCG) VACCINE (6 MOS- 11 YRS) 01/07/2024 COVID-19 mRNA (Aeluros) 0.3 m L (30 mcg) vaccine (12 [...] on file Legal Sex Male 12:18 AM GAS MAIN FITTER Gender Identity Not on file Sexual Orientation Straight 12/31/2019 9: 09 AM GAS MAIN FITTER Obstetrics History Last Filed Vital Signs Vital [...] Routine (OP Routine) 01/03/2025 9:24 AM CDT 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) HEPATITIS C ANTIBODY Routine 01/02/2022 1:23 PM GAS MAIN FITTER 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 [...] * Hepatitis C antibody (01/02/2022 1:23 PM GAS MAIN FITTER) Hep C Ab Nonreactive Nonreactive [facility] Comment: Interpretive Data Nonreactive: Antibodies [...] last revised on 2020. Testing performed by: [facility], [facility], [place]., [address] Blood 01/02/2022 1:23 PM GAS MAIN FITTER 01/02/2022 4:18 PM GAS MAIN FITTER Marian Messina NP LAB MICROBIOLOGY - GENERAL ORDERABLES Final Result [facility] [id number] [facility]. Department [place] [address] from Last 3 Months or Most Recently Relevant to Health Maintenance Insurance [facility] MEDICARE [facility] ADVANTAGE CHOICE O Member Subscriber Plan / Payer (Ef fective 2023-Present) Name:Perico Batista Relation to Subscriber:Self Name:Perico Batista Payer ID:[id number] (NAIC) Type:MEDICARE RISK OTHER Address: [address] [facility] [place] [id number] [facility] ADVANTAGE CHOICE PPO Advance Directives For more information, please contact: [phone] * Full Code (Latest Code Status on File) Date Activated Date Inactivated Comments 11/29/2021 12:26 PM 12/03/2021 2:57 PM * Full Code Date Activated Date Inactivated Comments 10/31/2021 8:34 PM 11/01/2021 2:32 PM Care Teams Movie Theater Manager Relationship Specialty Start Date End Date Scottie Williamson MD [address] [place] [address] PCP - General Internal Medicine 03/03/19 Emily Blue MD [address] [place] [address] Fellow Pulmonary Disease 10/16/21 Kat Luna MD [address] [place] [address] Referring Physician Dermatology 10/16/21 Jose Diaz MD [address] [place] [address] Referring Physician Pulmonary Disease 10/16/21 Valente Torres MD [address] [facility], [address] [address] Referring Physician Otolaryngology 02/07/22 Thelma Brown MD [address] [facility], [address] [address] Medical Oncologist/Automobile Radiator Mechanic Medical Oncology 01/14/23
--- OUTSIDE RECORDS SUMMARY | 2025-07-09 07:47 | XMS_ITS ---
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 Immunocompromised 03/01/2022 Anemia 12/25/2021 Chronic pain 11/30/2021 Assessment & Plan (11/30/2021 7:35 AM OIL AND GAS LEASE PUMPER): - takes oxy at home - pain following to help with acute pain issues Nausea 11/30/2021 Assessment & Plan (12/03/2021 7:22 AM OIL AND GAS LEASE PUMPER): - improved - 2/6 KUB consistent w post op ileus, now resolved - prn antiemetics - scheduled miralax - protonix BID - azathiopine IV - maalox - continue POPM - OOB - advance diet to regular Lung mass 11/29/2021 Mass of lower lobe of left lung 11/08/2021 Assessment & Plan (12/03/2021 7:21 AM OIL AND GAS LEASE PUMPER): Left thoracotomy, lysis of adhesions, and left lower lobe diagnostic wedge resection - chest tubes all out - pain control with POPM - OOB with PT Consolidation of left lower lobe of lung 021 [place] cell carcinoma of other parts of face Overview (10/12/2021): Added automatically from request for surgery [id number] Raynaud's disease 10/12/2021 Benign paroxysmal positional vertigo 10/12/2021 High risk medication use 10/09/2020 Basal cell carcinoma (BCC) of right methodist regio n 09/08/2019 NSIP (nonspecific interstitial pneumonia) [...] 07/20/2007 Assessment & Plan (11/30/2021 7:29 AM OIL AND GAS LEASE PUMPER): - monitor and restart home medications as BP tolerates Pain in joint involving lower leg 07/19/2002 ILD (interstitial lung disease) ([facility]) Assessment & Plan (12/03/2021 7:20 AM OIL AND GAS LEASE PUMPER): Interstitial lung disease in NSIP pattern, likely [...]
--- OUTSIDE RECORDS SUMMARY | 2025-07-09 07:47 | XMS_ITS | Encounter Summary ---
Author Organization [facility] Health Address [address] [facility] [place] [address] Care Team Providers Care Technical Coordinator Name Role Phone Scottie Williamson MD Primary Care Provider + Encounter Details Date Type Department Care Team (Late st Contact Info) Description 02/10/2019 Lab Requisition [facility] Care DermPath Lab [address] [facility], [place] [phone] Kat Luna MD [address] [facility] 3 [place] [address] Social History Tobacco Use Types Packs/Day Years Used Date Smoking Tobacco: Former Cigarettes 1.5 37 1 11/22/1964 - 09/22/2002 Smokeless Tobacco: Never Alcohol Use Standard Drinks/Week Comments Yes 1.7 (1 standard drink = 0.6 oz p ure alcohol) occ Sex and Gender Information Value Date Recorded Sex Assigned at Not on file Legal Sex Male 6:27 AM COMMUNITY LIVING SPECIALIST Gender Identity Not on file Sexual Orientation Not on file documented as of this encounter Plan of Treatment Not on file documented as of this encounter Procedures Procedure Name Priority Date/Time Associated Diagnosis Comments DERMATOPATHOLOGY Routine 02/09/2019 12:0 0 AM CDT documented in this encounter Results * DERMATOPATHOLOGY (02/09/2019 12:00 AM CDT) Case Report Dermatopathology Report Case: [id number] Authorizing Provider: Kat Luna MD Collected: 02/09/2019 12:00 AM Pathologist: Nichelle Strange MD Received: 02/10/2019 06:24 AM Specimens: A) - Skin, left adventist B) - Skin, left medial calf 4:11 PM T DERMATOPATHOLOGY LABORATORY Final Diagnosis Specimen A. SKIN, left adventist: BASAL CELL CARCINOMA, NODULAR TYPE (C44.319) PRESENT AT MARGIN Specimen B. SKIN, left medial calf: BASAL CELL CARCINOMA, SUPERFICIAL MULTIFOCAL (C44.719) PRESENT AT MARGIN 4:11 PM T DERMATOPATHOLOGY LABORATORY at 1611 CDT Clinical History A-B: R/O BCC, irritated 4:11 PM T DERMATOPATHOLOGY LABORATORY Gross Description Specimen A: Received is one formalin filled container labeled with the patient's name and designated left adventist. The specimen consists of a shave biopsy (2 pieces) measuring 9x6x1 and 10x6x1 mm. Jar 0. Specimen B: Received is one formalin filled container labeled with the patient's name and designated left medial calf. The specimen consists of a shave biopsy measuring 10x9x1 mm. Jar 0. 4:11 PM T DERMATOPATHOLOGY LABORATORY Microscopic Description Specimen A. SKIN, left adventist: Within the dermis there are aggregates of [...] characteristic determined by the Dermatopathology Laboratory at [facility], directed by Dr. Dolores Strange. These tests need not be, and therefore are not, approved by the [place] Food and Drug Administration. The tests are used for clinical purposes. Billing Codes Specimen Charges Stain Charges 36202 10741 1 1 04/18/201 9 4:11 PM CDT DERMATOPATHOLOGY LABORATORY Embedded Images 9 4:11 PM CDT DERMATOPATHOLOGY LABORATORY Pathology/Cytology TISSUE SPECIMEN FROM SKIN / Unknown 02/09/2019 02/10/2019 6:24 AM CDT Miscellaneous samples (specimen) TISSUE SPECIMEN FROM SKIN / Unknown 02/09/2019 02/10/2019 6:24 AM CDT Kat Luna MD LAB - PATHOLOGY/CYTOLOGY OR DERABLES Final Result DERMATOPATHOLOGY LABORATORY [facility] - Department of Dermatology [address] [place] [address], 5th Floor Lab B [address] [phone] documented in this encounter Visit Diagnoses Not on filedocumented in this encounter Care Teams Technical Coordinator Relationship Specialty Start Date End Date Scottie Williamson MD [facility] [address] [phone] PCP - General Internal Medicine 09/22/13 documented as of this encounter
--- OUTSIDE RECORDS SUMMARY | 2025-07-09 07:47 | XMS_ITS | Encounter Summary ---
Author Organization [facility] Address [address] [place] [address] Care Team Providers Care Obgyn Hospitalist Physician Name Role Phone Scottie Williamson MD Primary Care Provider + Encounter Details Date Type Department Care Team (Late st Contact Info) Description 08/17/2019 Lab Requisition [facility] DermPath Lab [address] [facility] [place], [facility] [place] [phone] Kat Luna MD [address] [facility] 3 [place] [address] Social History Tobacco Use Types Packs/Day Years Used Date Smoking Tobacco: Former Cigarettes 1.5 37 1 11/22/1964 - 09/22/2002 Smokeless Tobacco: Never Alcohol Use Standard Drinks/Week Comments Yes 1.7 (1 standard drink = 0.6 oz p ure alcohol) occ Sex and Gender Information Value Date Recorded Sex Assigned at Not on file Legal Sex Male 6:27 AM HYBRID DERIVATIVES TRADER Gender Identity Not on file Sexual Orientation Not on file documented as of this encounter Plan of Treatment Not on file documented as of this encounter Procedures Procedure Name Priority Date/Time Associated Diagnosis Comments DERMATOPATHOLOGY Routine 08/17/2019 12:0 0 AM CDT documented in this encounter Results * DERMATOPATHOLOGY (08/17/2019 12:00 AM CDT) Case Report Dermatopathology Report Case: [id number] Authorizing Provider: Kat Luna MD Collected: 08/17/2019 12:00 AM Ordering Location: [facility] DermPath Lab Received: 08/17/2019 12:06 PM Pathologist: Tammy Rivas MD Specimen: Skin, right pentecostalism 12:48 PM CDT DERMATOPATHOLOGY LABORATORY Final Diagnosis Specimen A. SKIN, right pentecostalism: BASAL CELL CARCINOMA, INFILTRATIVE PATTERN (C44.319) 12:48 PM CDT DERMATOPATHOLOGY LABORATORY at 1248 CDT Clinical History R/O BCC, irritated. 12:48 PM CDT DERMATOPATHOLOGY LABORATORY Gross Description Specimen A: Received is one formalin filled container labeled with the patient's name and designated right pentecostalism. The specimen consists of a shave measuring 5w5d3vj. Jar 0. 12:48 PM CDT DERMATOPATHOLOGY LABORATORY Microscopic Description Specimen A. SKIN, right pentecostalism: Within the dermis there are nodular aggregates [...] characteristic determined by the Dermatopathology Laboratory at [facility], directed by Dr. Dolores Strange. These tests need not be, and therefore are not, approved by the [place] Food and Drug Administration. The tests are used for clinical purposes. Billing Codes Specimen Charges Stain Charges 64028 1 12:48 PM CDT DERMATOPATHOLOGY LABORATORY Embedded Images 12:48 PM CDT DERMATOPATHOLOGY LABORATORY Pathology/Cytolog y TISSUE SPECIMEN FROM SKIN / Unknown 08/17/2019 08/17/2019 12:06 PM CDT us Kat Luna MD LAB - PATHOLOGY/CYTOLOGY OR DERABLES Final Result DERMATOPATHOLOGY LABORATORY [facility] - Department of Dermatology [address] [facility] [place], 5th Floor Lab B [address] [phone] documented in this encounter Visit Diagnoses Not on filedocumented in this encounter Care Teams Obgyn Hospitalist Physician Relationship Specialty Start Date End Date Scottie Williamson MD [address] [phone] PCP - General Internal Medicine 09/22/13 documented as of this encounter
--- OUTSIDE RECORDS SUMMARY | 2025-07-09 07:47 | XMS_ITS | Clinical Summary ---
Author Organization [facility] Address [address] [facility] [address] Care Team Providers Care Care Nurse Rn Name Role Phone Scottie Williamson MD Primary Care Provider + Source Comments [facility],non-owned Affiliates and Associated Physician Practices is amultiple site organization consisting of ambulatory clinics and hospital sitesin [place], [place] and [place]. This disclosure is being madepursuant to the Care Everywhere program and may not contain all information available regarding this patient. Last updated 18.[facility] Allergies No known active allergies Medications * [...] LURIA, FLUZONE TRIVALENT; 6MO+) (IIV3) 08/03/2014,08/20/2012,10/29/2006 Covid [employer] primary monoval ent 12+ yr 0.3mL Purple [...] on file Legal Sex Male 6:27 AM ENVIRONMENTAL SERVICES ASSOCIATE Gender Identity Not on file Sexual Orientation Not on file Last Filed Vital Signs Vital Sign Reading Time Taken Comments Blood Pressure 115/64 10/10/2020 9:14 AM ENVIRONMENTAL SERVICES ASSOCIATE Pulse 85 05/10/2020 9:34 AM CDT Temperature [...] to complete this topic Insurance [employer] [facility] MEDICARE Care Teams Care Nurse Rn Relationship Specialty Start Date End Date Scottie Williamson MD [address] [place] [phone] PCP - General Internal Medicine 09/22/13
--- OUTSIDE RECORDS SUMMARY | 2025-07-09 07:47 | XMS_ITS | Encounter Summary ---
Author Organization [facility] Address [address] [place] [address] Phone Care Team Providers Care Milk Handler Name Role Phone Scottie Williamson MD Primary Care Provider Emily Blue MD Unavailable [phone] Kat Luna MD Unavailable [phone] Jose Diaz MD Unavailable [phone] Valente Torres MD Unavailable [phone] Heather Avila RN Unavailable Unavailable Thelma Brown MD Unavailable [phone] Encounter Details Date Type Department Care Team (Latest Contact Info) Description 11/22/2019 Orders Only [facility] Scanning, Provider Social History Tobacco Use Types Packs/Day Years Used Date Smoking Tobacco: Former Smokeless Tobacco: Never Sex and Gender Information Value Date Recorded Sex Assigned at Not on file Legal Sex Male 12:18 AM DEVELOPER ARCHITECT Gender Identity Not on file Sexual Orientation Straight 12/31/2019 9: 09 AM DEVELOPER ARCHITECT documented as of this encounter Plan of [...] documented as of this encounter Care Teams Milk Handler Relationship Specialty Start Date End Date Scottie Williamson MD [address] [facility] [address] [place] [address] PCP - General Internal Medicine 03/03/19 Emily Blue MD [address] [place] [address] Fellow Pulmonary Disease 10/16/21 Kat Luna MD [address] [place] [address] Referring Physician Dermatology 10/16/21 Jose Diaz MD [address] [place] [address] Referring Physician Pulmonary Disease 10/16/21 Valente Torres MD [address] [facility] DEPT OTOLARYNGOLOGY, [address] [address] Referring Physician Otolaryngology 02/07/22 Heather Avila, RN Registered Nurse 05/02/22 02/03/25 Thelma Brown MD Medical Oncologist/Ultrasound Tech Medical Oncology 01/14/23 documented as of this encounter
--- OUTSIDE RECORDS SUMMARY | 2025-07-09 07:47 | XMS_ITS | Encounter Summary ---
Author Organization [facility] Healthcare Address [address] [place] [address] Care Team Providers Care Quarry Supervisor Open Pit Name Role Phone Scottie Williamson MD Primary Care Provider Emily Blue MD Unavailable Kat Luna MD Unavailable [phone] Jose Diaz MD Unavailable [phone] Valente Torres MD Unavailable [phone] Heather Avila RN Unavailable Unavailable Thelma Brown MD Unavailable [phone] Reason for Referral * Diagnostic Imaging (Routine) - Closed Specialty Diagnoses / Procedures Referred By Contac t Referred To Contact Diagnoses Osteoporosis Procedures DEXA AXIAL SKELETON BONE DENSITY 1 OR 2 SITE Scottie Williamson MD [address] [place] [address] Phone: tel: fax: [address] [address] Referral ID Status Reason Start Date Expiration Date Visits Re quested Visits Authorized [id number] Closed 12/31/2022 01/30/2024 1 1 INE CEMENTER Encounter Details Date Type Department Care Team (Late st Contact Info) Description 12/31/2022 Community Orders [facility] EpicCare Link Scottie Williamson MD [address] [facility] [address] [place] [address] ILD (interstitial lung disease) ([facility]) (Primary Dx); Osteoporosis screening; Osteoporosis [...] on file Legal Sex Male 12:18 AM MACHINE CEMENTER Gender Identity Not on file Sexual Orientation Straight 12/31/2019 9: 09 AM MACHINE CEMENTER documented as of this encounter Plan of [...] OF STUDY: 01/23/2023 HISTORY: 77-year-old man with [place] cell carcinoma, marginal zone lymphoma, interstitial lung disease on computer terminal operator steroids. He is not taking specific bone [...] marginal zone lymphoma, interstitial lung disease on residential steroids. He is not taking specific bone [...] documented as of this encounter Care Teams Quarry Supervisor Open Pit Relationship Specialty Start Date End Date Scottie Williamson MD [address] [place] [address] PCP - General Internal Medicine 03/03/19 Emily Blue MD [address] [place] [address] Fellow Pulmonary Disease 10/16/21 Kat Luna MD [facility] [place] [address] Referring Physician Dermatology 10/16/21 Jose Diaz MD [address] [place] [address] Referring Physician Pulmonary Disease 10/16/21 Valente Torres MD [address] [facility] DEPT OTOLARYNGOLOGY, [address] [address] Referring Physician Otolaryngology 02/07/22 Heather Avila, RN Registered Nurse 05/02/22 02/03/25 Thelma Brown MD Medical Oncologist/Nail Sticker Medical Oncology 01/14/23 documented as of this encounter
--- OUTSIDE RECORDS SUMMARY | 2025-07-09 07:47 | XMS_ITS | Encounter Summary ---
Author Organization [facility] Address [address] [place] [address] Phone Care Team Providers Care Homicide Squad Lieutenant Name Role Phone Scottie Williamson MD Primary Care Provider Emily Blue MD Unavailable [phone] Kat Luna MD Unavailable [phone] Jose Diaz MD Unavailable [phone] Valente Torres MD Unavailable [phone] Heather Avila RN Unavailable Unavailable Thelma Brown MD Unavailable [phone] Encounter Details Date Type Department Care Team (Latest Contact Info) Description 12/09/2019 Orders Only [facility] Scanning, Provider Social History Tobacco Use Types Packs/Day Years Used Date Smoking Tobacco: Former Smokeless Tobacco: Never Sex and Gender Information Value Date Recorded Sex Assigned at Not on file Legal Sex Male 12:18 AM SKIN THERAPIST Gender Identity Not on file Sexual Orientation Straight 12/31/2019 9: 09 AM SKIN THERAPIST documented as of this encounter Plan of [...] documented as of this encounter Care Teams Homicide Squad Lieutenant Relationship Specialty Start Date End Date Scottie Williamson MD [address] [facility] [address] [place] [address] PCP - General Internal Medicine 03/03/19 Emily Blue MD [address] [place] [address] Fellow Pulmonary Disease 10/16/21 Kat Luna MD [address] [place] [address] Referring Physician Dermatology 10/16/21 Jose Diaz MD [address] [place] [address] Referring Physician Pulmonary Disease 10/16/21 Valente Torres MD [address] [facility] DEPT OTOLARYNGOLOGY, [address] [address] Referring Physician Otolaryngology 02/07/22 Heather Avila, RN Registered Nurse 05/02/22 02/03/25 Thelma Brown MD Medical Oncologist/Billboard Mechanic Medical Oncology 01/14/23 documented as of this encounter
--- OUTSIDE RECORDS SUMMARY | 2025-07-09 07:47 | XMS_ITS | Encounter Summary ---
Author Organization [facility] Address [address] [facility] [place] [address] Care Team Providers Care Smoked Meat Preparer Name Role Phone Scottie Williamson MD Primary Care Provider + Encounter Details Date Type Department Care Team (Late st Contact Info) Description 06/10/[address] Lab Re[address] [facility] Care DermPath Lab [address] [facility], [place] [phone] Kat Luna MD [address] [facility] 3 [place] [address] Social History Tobacco Use Types Packs/Day Years Used Date Smoking Tobacco: Former Cigarettes Q uit: 09/22/2002 Smokeless Tobacco: Never Alcohol Use Standard Drinks/Week Comments Yes 1.7 (1 standard drink = 0.6 oz p ure alcohol) occ Sex and Gender Information Value Date Recorded Sex Assigned at Not on file Legal Sex Male 6:27 AM ELECTROTYPE CASTER Gender Identity Not on file Sexual Orientation Not on file documented as of this encounter Plan of Treatment Not on file documented as of this encounter Procedures Procedure Name Priority Date/Time Associated Diagnosis Comments DERMATOPATH TECHNICAL REPORT Routine 06/09/2018 12:00 AM CDT documented in this encounter Results * DERMATOPATH TECHNICAL REPORT (06/09/2018 12:00 AM CDT) Case Report Dermatopathology Report Case: [id number] Authorizing Provider: Kat Luna MD Collected: 06/09/2018 12:00 AM Pathologist: Tammy Rivas MD Received: 06/10/2018 06:36 AM Specimen: Skin, left forearm 11:42 AM CDT DERMATOPATHOLOGY LABORATORY Clinical History BCC, bx proven. Check margins. Previous Bx: [id number]. 11:42 AM CDT DERMATOPATHOLOGY LABORATORY Gross Description Specimen A: Received is one formalin filled container labeled with the patient's name and designated left forearm. The specimen consists of a non-oriented ellipse of skin measuring [id number]. The epidermal surface is unremarkable. The margin is inked green. The 12 o'clock and 6 o'clock tips are submitted in cassette 1. The remainder of the ellipse is serially sectioned and submitted in cassettes 2-3. Jar 0. [facility] Dermatopathology Laboratory performed the technical component only. [...] characteristic determined by the Dermatopathology Laboratory at [facility]. These tests need not be, and therefore are not, approved by the [place] Food and Drug Administration. The tests are used for clinical purposes. 11:42 AM T DERMATOPATHOLOGY LABORATORY at 1142 CDT Pathology/Cytolog y TISSUE SPECIMEN FROM SKIN / Unknown 06/09/2018 06/10/2018 6:36 AM CDT us Kat Luna MD LAB - PATHOLOGY/CYTOLOGY OR DERABLES Final Result DERMATOPATHOLOGY LABORATORY [facility] - Department of Dermatology [address] [facility], 5th [place] [address], [facility] [phone] documented in this encounter Visit Diagnoses Not on filedocumented in this encounter Care Teams Smoked Meat Preparer Relationship Specialty Start Date End Date Scottie Williamson MD [address] [place] [phone] PCP - General Internal Medicine 09/22/13 documented as of this encounter
--- OUTSIDE RECORDS SUMMARY | 2025-07-09 07:47 | XMS_ITS | Encounter Summary ---
Author Organization [facility] Address [address] [facility] [place] [address] Care Team Providers Care Petroleum Geologist Name Role Phone Scottie Williamson MD Primary Care Provider + Encounter Details Date Type Department Care Team (Late st Contact Info) Description 03/15/2020 Lab Requisition [facility] Care DermPath Lab [address] [facility], [facility] [place] [phone] Kat Luna MD [address] [facility] 3 [place] [address] Social History Tobacco Use Types Packs/Day Years Used Date Smoking Tobacco: Former Cigarettes 1.5 37 1 11/22/1964 - 09/22/2002 Smokeless Tobacco: Never Alcohol Use Standard Drinks/Week Comments Yes 1.7 (1 standard drink = 0.6 oz p ure alcohol) occ Sex and Gender Information Value Date Recorded Sex Assigned at Not on file 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 Gender Identity Not on file Sexual Orientation Not on file documented as of this encounter Plan of Treatment Not on file documented as of this encounter Procedures Procedure Name Priority Date/Time Associated Diagnosis Comments DERMATOPATH TECHNICAL REPORT Routine 03/14/2020 12:00 AM CDT documented in this encounter Results * DERMATOPATH TECHNICAL REPORT (03/14/2020 12:00 AM CDT) Case Report Dermatopathology Report Case: [id number] Authorizing Provider: Kat Luna MD Collected: 03/14/2020 12:00 AM Ordering Location: [facility] Care DermPath Lab Received: 03/15/2020 06:43 AM Pathologist: Tammy Rivas MD Specimen: Skin, left FH sup 0 3:36 PM CDT DERMATOPATHOLOGY LABORATORY Clinical History R/O BCC, irritated. 0 3:36 PM CDT DERMATOPATHOLOGY LABORATORY Gross Description Specimen A: Received is one formalin filled container labeled with the patient's name and designated left FH sup. The specimen consists of a shave (2 pieces) measuring [id number] & [id number]. Jar 0. [facility] Dermatopathology Laboratory performed the technical component only. [...] characteristic determined by the Dermatopathology Laboratory at [facility], directed by Dr. Dolores Strange. These tests [...] OR DERABLES Final Result DERMATOPATHOLOGY LABORATORY [facility] - Department of Dermatology [facility]/[address] [phone] documented in this encounter Visit Diagnoses Not on filedocumented in this encounter Care Teams Petroleum Geologist Relationship Specialty Start Date End Date Scottie Williamson MD [address] [place] [phone] PCP - General Internal Medicine 09/22/13 documented as of this encounter
[2025-07-09 08:36] LABS: INR 1.0; NT Pro B Type Natriuretic Pept 164 pg/mL (19.9-100); Partial Thromboplastin Time 28.8 Seconds (22.3-36.8); Prothrombin Time 13.8 Seconds (11.1-14.7); Troponin I < 0.012 ng/mL (0.000-0.034)
[2025-07-09 08:52] LABS: Influenza A QL RT-PCR Negative (Negative); Influenza B QL RT-PCR Negative (Negative); RSV RNA, RT-PCR Negative (Negative); SARS-CoV-2 RNA PCR Negative (Negative)
[2025-07-09] MEDS: cefTRIAXone 1 GM in SODIUM CHLORIDE 0.9% IV 50 ML 100 ML IVPB (09:42)
[2025-07-09] MEDS: ONDANSETRON INJ 4 MG/2 ML VIAL IV PUSH ×2 (09:53→18:12)
[2025-07-09] MEDS: AZITHROMYCIN IV 500 MG in SODIUM CHLORIDE 0.9% IV 250 ML IVPB (10:16)
[2025-07-09] MEDS: PIPERACILLIN/TAZOBACTAM SOD 4.5 GM in SODIUM CHLORIDE 0.9% IV 100 ML 200 ML IVPB (11:24)
[2025-07-09] MEDS: SODIUM CHLORIDE 0.9% IV 1,000 ML 125 ML IV CONT ×2 (12:10→20:47)
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
--- NOTE | 2025-07-09 13:47 | ADMGEN ---
This patient, Perico Batista Jr., was admitted to 3 Med Surg Room 302-01. Patient/family oriented to hospital policies and general routines including ID bracelet, bed and alarms, visiting hours, pain management, procedures, bathroom and other care routines, personal items, smoking policy, room service/diet, and visiting hours. Information on how to activate the Rapid Response Team has been discussed. Patient/Family are encouraged to report perceived risks to care and to ask questions if they do not understand what they are told or what they should do. Pt presented to floor with NG to Joleen deluca; hooked to canister. IV running. Pt slid over to bed. NG hooked to LIS, pinned to gown.
[2025-07-09] MEDS: PANTOPRAZOLE SODIUM IV 40 MG VIAL IV PUSH (14:37)
[2025-07-09] MEDS: ENOXAPARIN 40 MG/0.4 ML SYRINGE SUB-Q (14:38)
[2025-07-09] MEDS: BENZOCAINE (*SP) 60 ML SPRAY CAN (HURRICAINE) 1 SPRAY MUCOUS MEM (20:48)
[2025-07-09] MEDS: guaiFENesin 12 HR 600 MG TABCR PO (20:48)
[2025-07-10] MEDS: ONDANSETRON INJ 4 MG/2 ML VIAL IV PUSH (04:01)
[2025-07-10] MEDS: HYDROmorphone HCL INJ (*CRX) 1 MG/ML SYR 0.5 MG IV PUSH ×3 (04:01→16:26)
[2025-07-10] MEDS: SODIUM CHLORIDE 0.9% IV 1,000 ML 125 ML IV CONT ×2 (04:05→22:47)
[2025-07-10 05:27] LABS: Hematocrit 39.4 % (42.0-52.0); Hemoglobin 12.5 g/dL (14.0-18.0); Immature Granulocyte Percent A 0.4 % (0-0.5); Lymphocytes Absolute Auto 0.65 K/mm3 (0.9-3.2); Mean Corpuscular HGB Conc 31.7 g/dl (32-36); Mean Corpuscular Hemoglobin 29.8 pg (26-34); Mean Corpuscular Volume 94.0 fl (80-100); Nucleated Red Blood Cells Absolute Auto 0.000 K/mm3 (0.0-0.012); Nucleated Red Blood Cells Perc 0.0 % (0.0-0.2); Platelet Count Result 292 k/mm3 (150-375); Red Blood Count 4.19 M/mm3 (4.6-6.20); White Blood Count 8.5 K/mm3 (4.5-10.0)
[2025-07-10 05:48] LABS: Anion Gap 4 mmol/L (4-12); Blood Urea Nitrogen 51 mg/dL (9-20); Calcium 8.3 mg/dL (8.4-10.2); Carbon Dioxide 29 mmol/L (22-30); Chloride 97 mmol/L (98-107); Estimated CRCL calculation 60 ml/min; Estimated Glomerular Filt Rate > 60; Glucose 97 mg/dL (65-110); Magnesium 2.2 mg/dL (1.6-2.3); Potassium 4.6 mmol/L (3.4-5.0); Sodium 130 mmol/L (137-145)
[2025-07-10 05:55] LABS: Anisocytosis 1+; Schistocytes None Seen
[2025-07-10 06:00] VITALS: BP 148/64; PULSE 101; RESP 20; TEMP 37.1; O2SAT 99
[2025-07-10 08:00] VITALS: O2SAT 99
[2025-07-10] MEDS: cefTRIAXone 1 GM in SODIUM CHLORIDE 0.9% IV 50 ML 100 ML IVPB (09:11)
[2025-07-10] MEDS: ENOXAPARIN 40 MG/0.4 ML SYRINGE SUB-Q (09:13)
[2025-07-10] MEDS: PANTOPRAZOLE SODIUM IV 40 MG VIAL IV PUSH (09:13)
[2025-07-10] MEDS: AZITHROMYCIN IV 500 MG in SODIUM CHLORIDE 0.9% IV 250 ML IVPB (10:20)
--- NOTE | 2025-07-10 10:55 | P.PNIM_ITS ---
Progress Note: A&P Assessment and Plan (1) Small bowel obstruction: Code(s): K56.609 - Unspecified intestinal obstruction, unspecified as to partial versus complete obstruction Status: Acute Assessment and Plan: CTA chest/abd/pelvis, 07/09: showing Small bowel obstruction. Transition point in the pelvis. abdomen XR, 07/09: Small bowel obstruction, suspect SBO secondary to recent opioid use due to fall on 07/04, no previous history of SBO or abdominal surgeries * general surgery consulted * NPO/bowel rest * IV fluids: 1L bolus -> 125 mL/hr * IV Dilaudid for pain management * NG tube inserted on 07/09 * monitor renal function and electrolyte * Small-bowel series pending (2) JOHANNA (acute kidney injury): Code(s): N17.9 - Acute kidney failure, unspecified Status: Acute Assessment and Plan: mild creatinine 1.37, BUN 49, GFR 50 upon admission. Previously 1.02 on 07/04, no further baseline available. likely secondary to SBO, consider further workup and nephrology consultation * IV fluids * trend renal function * trend electrolytes, correct as needed (3) Pneumonia: Qualifiers: Laterality: bilateral Lung location: lower lobe of lung Pneumonia type: due to unspecified organism Qualified Code(s): J18.9 - Pneumonia, unspecified organism Code(s): J18.9 - Pneumonia, unspecified organism Status: Acute Assessment and Plan: CXR: CHF. Superimposed probable pneumonia, risk/complicating factors: remote rib fractures, interstitial lung disease, Viral PCR negative on 07/09 * IV ceftriaxone and azithromycin on 07/09 NPO currently * Mucinex suyapa * Tylenol p.r.n., Kari Pascual p.r.n., Miguel p.r.n. * encourage IS * no current supplemental O2 requirement * Resume patient's stress dose pack prednisone 60 mg x 3 more days (4) Ribs, multiple fractures: Qualifiers: Encounter type: subsequent encounter Fracture healing: with routine healing Fracture type: closed Laterality: right Qualified Code(s): S22.41XD - Multiple fractures of ribs, right side, subsequent encounter for fracture with routine healing Code(s): S22.49XA - Multiple fractures of ribs, unspecified side, initial encounter for closed fracture Status: Acute Assessment and Plan: CTA showed remote fractures of the left clavicle and the ribs bilaterally with healing fractures of the posterior right sixth seventh and eighth ribs which are nondisplaced. * encourage incentive spirometer * secondary to recent fall on 07/04 suspected as the patient has not sustained any other falls or injuries * IV Dilaudid for pain management currently NPO due to SBO * add lidocaine patches * patient also reported muscle spasms was giving be dose of diazepam IV 2 mg (5) Acute hyponatremia: Code(s): E87.1 - Hypo-osmolality and hyponatremia Status: Acute Assessment and Plan: mild, Na 131 upon admission * IV fluids trial if worsening could be SIADH secondary to trauma * trend Na * Monitor neuro Plan Code status: Full code per patient DVT prophylaxis: Lovenox Stress ulcer prophylaxis: NA PT/OT notes: ambulatory Disposition: patient continues admission to the medical unit for current SBO and pneumonia with recent rib fractures will continue with NG tube consult to General surgery. Time Spent With Patient Time with patient: 15 - 25 minutes Subjective Date/time seen: 07/10/25 10:55 Interval history: Patient is a 79-year-old male admitted for treatment of SBO and pneumonia 07/10/2025: Patient up in chair mild to moderate reported mostly due to muscle spasms from recent fall. Current NG to clamped after bowel series. Patient states still no BM but did have some flatulence. Patient with noticeable productive cough. Spoke with patient regarding home medications of nifedipine and his prednisone orders fixed. Patient denied any chest pain, shortness a breath, nausea vomiting. Review of Systems Review of Systems: All systems reviewed & are unremarkable except as noted in HPI and below Exam Const: General: comfortable and no acute distress Other: , male, elderly, nontoxic appearance HENMT: Face/Nose/Sinus: Normal nares present Mouth: Yes moist mucous membranes Other: NG in place Eyes: General: appearance normal, both eyes and all related structures Sclera: sclerae normal Pupils: Equal, round and reactive pupils present EOM: EOMs intact bilaterally Resp: Effort & Inspection: normal respiratory effort Auscultation: clear to auscultation bilaterally Cardio: Rate: regular rate Rhythm: regular rhythm Other: S1-S2 present without murmur, rub, ectopy GI: Other: Abdomen distended, mildly firm. Hypoactive bowel sounds in all quadrants. No tenderness on exam. Skin: General skin exam: no rashes or lesions noted and fluctuance Wounds: no wounds Other: Bilateral peripheral stenosis Neuro: Cranial nerves: Yes Equal, round and reactive pupils present Speech: normal speech Motor exam (neuro): 5/5 motor strength present throughout Sensory Exam: normal sensation Other: A&O x4 Extrem: General: normal to inspection Psych: Mental Status: mental status grossly normal Affect: normal affect Other: Good insight and judgment, pleasant Objective Data Vital Signs Vital Signs: Vital Signs - 24 hr 07/09/25 12:31 07/09/25 13:02 07/09/25 14:00 Temperature 98.3 F Pulse Rate 91 96 97 Respiratory Rate 15 20 18 Blood Pressure 146/73 H 155/73 H 151/71 H Pulse Oximetry 96 97 96 Oxygen Delivery Oxygen Flow Rate 07/09/25 14:00 07/09/25 20:48 07/09/25 22:00 Temperature 98.1 F Pulse Rate 110 H Respiratory Rate 18 Blood Pressure 135/66 Pulse Oximetry 96 95 95 Oxygen Delivery Nasal Cannula Nasal Cannula Oxygen Flow Rate 2 2 07/10/25 06:00 Temperature 98.7 F Pulse Rate 101 H Respiratory Rate 20 Blood Pressure 148/64 H Pulse Oximetry 99 Oxygen Delivery Oxygen Flow Rate Intake/Output Intake/Output: Intake & Output 07/07/25 07/08/25 07/09/25 07/10/25 23:59 23:59 23:59 23:59 Intake Total 2400 912.5 Output Total 1050 1350 Balance 1350 -437.5 Meds/Results Medications: Active Medications Generic Name Dose Route Start Last Admin Trade Name Freq PRN Reason Stop Dose Admin Acetaminophen 650 mg 07/09/25 11:38 Acetaminophen 650 Mg Suppository RECTAL Q6H PRN Mild Pain (1-3) or Fever Hydrocodone Bitart/Acetaminophen 1 tab 07/09/25 12:57 Hydrocodone/Acetaminophen (*Crx) 5-325 Mg Tablet PO Q4H PRN Pain Rated 4-6 Albuterol/Ipratropium 3 ml 07/09/25 12:55 Ipratropium 0.5 Mg/Albuterol Sulfate 2.5 Mg Ampul.Neb 3 Ml INHALATION Q6HRT PRN Shortness Of Breath Or Wheezing Aspirin 81 mg 07/10/25 09:00 07/10/25 09:09 Aspirin 81 Mg Enteric Tablet PO Not Given DAILY SUYAPA Benzocaine 1 lozenge 07/09/25 18:25 Benzocaine/Menthol (*Bkc) 18 Ea Lozenge PO PRN PRN Sore Throat Benzonatate 100 mg 07/09/25 12:55 Benzonatate 100 Mg Capsule PO TID PRN Cough Enoxaparin Sodium 40 mg 07/09/25 13:05 07/10/25 09:13 Enoxaparin 40 Mg/0.4 Ml Syringe SUB-Q 40 mg DAILY SUYAPA Administration Guaifenesin 600 mg 07/09/25 13:05 07/10/25 09:09 Guaifenesin 12 Hr 600 Mg Tabcr PO Not Given Q12HR SUYAPA Hydromorphone HCl 0.5 mg 07/09/25 11:38 07/10/25 09:13 Hydromorphone Hcl Inj (*Crx) 1 Mg/Ml Syr IV PUSH 0.5 mg Q4H PRN Administration Pain Rated 7-10 Sodium Chloride 1,000 mls @ 125 mls/hr 07/09/25 11:40 07/10/25 04:05 Normal Saline Iv IV CONT 125 mls/hr .Q8H SUYAPA Administration Ceftriaxone Sodium 1 gm/ 50 mls @ 100 mls/hr 07/10/25 10:00 07/10/25 09:11 Sodium Chloride IVPB 100 mls/hr Q24H SUYAPA Administration Azithromycin 500 mg/ Sodium 250 mls @ 250 mls/hr 07/10/25 10:00 07/10/25 10:20 Chloride IVPB 07/13/25 10:59 250 mls/hr Q24H SUYAPA Administration Lidocaine 1 patch 07/10/25 09:00 07/10/25 09:37 Lidocaine 5% Patch TRANSDERM Not Given DAILY [facility] Miscellaneous Information 1 each 07/10/25 00:01 Clarify Home Prednisone--2 Different Orders XX 08/09/25 00:00 CLARIFY SUYAPA Nifedipine 60 mg 07/10/25 09:00 07/10/25 09:38 Nifedipine 30 Mg Tab.Er.24 PO Not Given DAILY [facility] Ondansetron HCl 4 mg 07/09/25 11:38 07/10/25 04:01 Ondansetron Inj 4 Mg/2 Ml Vial IV PUSH 4 mg Q4H PRN Administration Nausea Pantoprazole Sodium 40 mg 07/09/25 13:05 07/10/25 09:13 Pantoprazole Sodium Iv 40 Mg Vial IV PUSH 40 mg QAM SUAYPA Administration Prednisone 5 mg 07/10/25 09:00 Prednisone 5 Mg Tablet PO DAILY [facility] Prednisone 60 mg 07/10/25 09:00 Prednisone 20 Mg Tablet PO DAILY [facility] Radiology Results: ITS Impressions Chest/Abdomen/Pelvis CTA 07/09/25 11:41 IMPRESSION: 1. Negative for pulmonary embolism. CHF with early basilar posterior bronchopneumonia. Accounting for differences in technique, the findings appear improved compared to the previous exam. There are right-sided acute rib fractures detailed above with healing. 2. Small bowel obstruction. Transition point in the pelvis. 3. Incidental findings above Abdomen X-Ray 07/09/25 12:42 Impression: 1. Small bowel obstruction Chest X-Ray 07/09/25 12:43 Impression: CHF. Superimposed probable pneumonia Labs Labs: Laboratory Results - last 24 hr 07/10/25 05:13 WBC 8.5 RBC 4.19 L Hgb 12.5 L D Hct 39.4 L MCV 94.0 MCH 29.8 MCHC 31.7 L RDW 13.9 Plt Count 292 MPV 9.4 Immature Gran % (Auto) 0.4 Neut % (Auto) 71.9 Lymph % (Auto) 7.6 L [place] % (Auto) 18.5 H Eos % (Auto) 1.2 Baso % (Auto) 0.4 Lymph # (Auto) 0.65 L [place] # (Auto) 1.6 H Eos # (Auto) 0.1 Baso # (Auto) 0.0 Abs Immat Gran (auto) 0.03 Absolute Neuts (auto) 6.1 Absolute Nucleated RBC 0.000 Band Neutrophils % Not Reportable Nucleated RBC % 0.0 Platelet Estimate Adequate Anisocytosis 1+ Schistocytes None seen Sodium 130 L Potassium 4.6 Chloride 97 L Carbon Dioxide 29 Anion Gap 4 BUN 51 H Creatinine 1.04 Estim Creat Clear Calc 60 Estimated GFR > 60 Glucose 97 Calcium 8.3 L Magnesium 2.2 Quality VTE Prophylaxis VTE prophylaxis: pharmacologic ordered -Patient's previous records reviewed on admission -ER notes reviewed in detail on admission -discussed all findings and current treatment plan with patient/Family/POA -Consultations reviewed for recommendations -Patient's disposition for safe discharge discussed with binder caser Dictation performed by [employer] direct speech recognition software, therefore compound filler variants and typographical errors may occur. Hospitalist MIPS Advance Care Plan I have confirmed that the patient's Advanced Care Plan is present, code status is documented, or surrogate decision maker is listed in patient medical record.: Yes Medication Reconciliation I have utilized all available resources to obtain, update and review the patients current medications (includes all prescriptions, OTC, herbals, cannabis, and nutritional supplements).: Yes The patient is not eligible for med reconciliation; the patient is in a emergent medical situation where delaying treatment would jeopardize the patients health.: No
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
[2025-07-10 14:00] VITALS: BP 128/68; PULSE 89; RESP 20; TEMP 36.3; O2SAT 100
--- NOTE | 2025-07-10 17:22 | PC.NURSE ---
Spoke with (poa) and patient is to be a full code for this hospital visit.
[2025-07-10 21:11] VITALS: BP 132/74; PULSE 75; RESP 22; TEMP 36.8; O2SAT 96
[2025-07-10 21:40] VITALS: O2SAT 96
[2025-07-10] MEDS: guaiFENesin 12 HR 600 MG TABCR PO (21:40)
[2025-07-10] MEDS: BENZOCAINE/MENTHOL (*BKC) 18 EA LOZENGE 1 LOZENGE PO (21:51)
[2025-07-11] VITALS (8 sets, daily range): BP systolic 134–151; BP diastolic 69–72; PULSE 90–96; RESP 14–20; TEMP 36.1–36.3; O2SAT 92–100
[2025-07-11] MEDS: HYDROmorphone HCL INJ (*CRX) 1 MG/ML SYR 0.5 MG IV PUSH ×2 (00:05→15:27)
[2025-07-11] MEDS: ONDANSETRON INJ 4 MG/2 ML VIAL IV PUSH (00:06)
[2025-07-11] MEDS: BENZOCAINE/MENTHOL (*BKC) 18 EA LOZENGE 1 LOZENGE PO (05:43)
[2025-07-11 07:14] LABS: Hematocrit 38.9 % (42.0-52.0); Hemoglobin 12.0 g/dL (14.0-18.0); Mean Corpuscular HGB Conc 30.8 g/dl (32-36); Mean Corpuscular Hemoglobin 29.5 pg (26-34); Mean Corpuscular Volume 95.6 fl (80-100); Platelet Count Result 283 k/mm3 (150-375); Red Blood Count 4.07 M/mm3 (4.6-6.20); White Blood Count 11.4 K/mm3 (4.5-10.0)
[2025-07-11 07:37] LABS: Alanine Aminotransferase 17 U/L (6-50); Albumin Level 3.5 g/dL (3.5-5.1); Alkaline Phosphatase 65 U/L (38-126); Anion Gap 7 mmol/L (4-12); Aspartate Amino Transferase 26 U/L (17-59); Bilirubin,Total 0.4 mg/dL (0.2-1.3); Blood Urea Nitrogen 43 mg/dL (9-20); Calcium 8.5 mg/dL (8.4-10.2); Carbon Dioxide 29 mmol/L (22-30); Chloride 102 mmol/L (98-107); Estimated CRCL calculation 64 ml/min; Estimated Glomerular Filt Rate > 60; Glucose 118 mg/dL (65-110); Magnesium 2.5 mg/dL (1.6-2.3); Potassium 4.4 mmol/L (3.4-5.0); Sodium 138 mmol/L (137-145); Total Protein 6.7 g/dL (6.3-8.2)
[2025-07-11] MEDS: SODIUM CHLORIDE 0.9% IV 1,000 ML 125 ML IV CONT ×2 (07:55→22:15)
[2025-07-11] MEDS: LIDOCAINE 5% PATCH 1 PATCH TRANSDERM (08:54)
[2025-07-11] MEDS: PANTOPRAZOLE SODIUM IV 40 MG VIAL IV PUSH (08:55)
[2025-07-11] MEDS: ENOXAPARIN 40 MG/0.4 ML SYRINGE SUB-Q (08:58)
--- NOTE | 2025-07-11 09:14 | P.CDI_ITS ---
CDI Query Clarification Request Please specify type and acuity of heart failure if known. * Acute * Chronic * Acute on Chronic * Unknown * Systolic * Diastolic * Combined Systolic and Diastolic * Unknown The medical chart reflects the followin) Pneumonia: Qualifiers: Laterality: bilateral Lung location: lower lobe of lung Pneumonia t ype: due to unspecified organism Qualified Code(s): J18.9 - Pneumonia, unspecified organism Code(s): J18.9 - Pneumonia, unspecified organism Status: Acute Assessment and Plan: CXR: CHF. Superimposed probable pneumonia, risk/complicating factors: remote rib fractures, interstitial lung disease, Viral PCR negative on 07/09 * IV ceftriaxone and azithromycin on 07/09 NPO currently * Mucinex suyapa * Tylenol p.r.n., Tessalon Perles p.r.n., DuoNebs p.r.n. * encourage IS * no current supplemental O2 requirement * Resume patient's stress dose pack prednisone 60 mg x 3 more days CXR: Impression: CHF. Superimposed probable pneumonia BNP: 164 <Rosalee Hall RN - Last Filed: 07/11/25 09:17> Clarified Diagnosis Clarified Diagnosis: CHF was not included in diagnosis that was just the chest x-rays read ings/impressions/diagnosis was Pneumonia/ILD <Maisha Golden APRN - Last Filed: 07/11/25 13:49>
--- NOTE | 2025-07-11 09:14 | WPDCDIQUERY2 ---
CDI Query Clarification Request Please specify type and acuity of heart failure if known. Acute Chronic Acute on Chronic Unknown Systolic Diastolic Combined Systolic and Diastolic Unknown The medical chart reflects the followin) Pneumonia: Qualifiers: Laterality: bilateral Lung location: lower lobe of lung Pneumonia type: due to unspecified organism Qualified Code(s): J18.9 - Pneumonia, unspecified organism Code(s): J18.9 - Pneumonia, unspecified organism Status: Acute Assessment and Plan: CXR: CHF. Superimposed probable pneumonia, risk/complicating factors: remote rib fractures, interstitial lung disease, Viral PCR negative on 07/09 IV ceftriaxone and azithromycin on 07/09 NPO currently Mucinex suyapa Tylenol p.r.n., Tessalon Perles p.r.n., DuoNebs p.r.n. encourage IS no current supplemental O2 requirement Resume patient's stress dose pack prednisone 60 mg x 3 more days CXR: Impression: CHF. Superimposed probable pneumonia BNP: 164 <Rosalee Hall RN - Last Filed: 07/11/25 09:17> Clarified Diagnosis Clarified Diagnosis: CHF was not included in diagnosis that was just the chest x-rays readings/impressions/diagnosis was Pneumonia/ILD <Maisha Golden APRN - Last Filed: 07/11/25 13:49>
--- NOTE | 2025-07-11 09:39 | P.PNGS_ITS ---
Progress Note: A&P Assessment and Plan (1) Small bowel obstruction: Code(s): K56.609 - Unspecified intestinal obstruction, unspecified as to partial versus complete obstruction Status: Acute Assessment and Plan: * SBS suggested SBO with no contrast in colon at 3 hours. Patient clinically improving and had 3 BMs. * Will order KUB this am. If this looks good, will remove NG tube and start clear liquids (2) Ribs, multiple fractures: Qualifiers: Encounter type: subsequent encounter Fracture type: closed Laterality: right Fracture healing: with routine healing Qualified Code(s): S22.41XD - Multiple fractures of ribs, right side, subsequent encounter for fracture with routine healing Code(s): S22.49XA - Multiple fractures of ribs, unspecified side, initial encounter for closed fracture Status: Acute Assessment and Plan: * Will need to limit opioid use when dealing with pain control. Plan I have discussed the patient's case and plan of care with Dr. Pan. Subjective Subjective Date/Time Seen: 07/11/25 09:39 Interval history: Patient feeling better today. Not having any back pain or spasms. Denies abdominal pain, although he didn't have any abd pain to begin with prior to admission. No nausea or vomiting and his NG was clamped all night per nursing. I hooked the NG tube back to suction and had no output during my assessment. He has had 3 BMs since the contrast study yesterday, 1 large formed one per nursing this am. Exam Const: General: comfortable and no acute distress GI: Inspection: other (mildly distended) GI Palp: Yes Soft to palpation, No Tenderness to palpation present (GI), No Guarding due to palpation present (GI) and No Rebound tenderness present Auscultation: Hypoactive bowel sounds present Objective Data Vital Signs Vital Signs: Vital Signs - 24 hr 07/10/25 14:00 07/10/25 21:11 07/10/25 21:40 Temperature 97.4 F L 98.2 F Pulse Rate 89 75 Respiratory Rate 20 22 H Blood Pressure 128/68 132/74 Pulse Oximetry 100 96 96 Oxygen Delivery Nasal Cannula Oxygen Flow Rate 2 07/11/25 04:18 Temperature 97.0 F L Pulse Rate 95 Respiratory Rate 18 Blood Pressure 151/69 H Pulse Oximetry 97 Oxygen Delivery Oxygen Flow Rate Intake/Output Intake/Output: Intake & Output 07/08/25 07/09/25 07/10/25 07/11/25 23:59 23:59 23:59 23:59 Intake Total 2400 1912.5 1550 Output Total 1050 1350 Balance 1350 562.5 1550 Meds/Results Medications: Active Medications Generic Name Dose Route Start Last Admin Trade Name Freq PRN Reason Stop Dose Admin Acetaminophen 650 mg 07/09/25 11:38 Acetaminophen 650 Mg Suppository RECTAL Q6H PRN Mild Pain (1-3) or Fever Hydrocodone Bitart/Acetaminophen 1 tab 07/09/25 12:57 Hydrocodone/Acetaminophen (*Crx) 5-325 Mg Tablet PO Q4H PRN Pain Rated 4-6 Albuterol/Ipratropium 3 ml 07/09/25 12:55 Ipratropium 0.5 Mg/Albuterol Sulfate 2.5 Mg Ampul.Neb 3 Ml INHALATION Q6HRT PRN Shortness Of Breath Or Wheezing Aspirin 81 mg 07/10/25 09:00 07/10/25 09:09 Aspirin 81 Mg Enteric Tablet PO Not Given DAILY MERCED Benzocaine 1 lozenge 07/09/25 18:25 07/11/25 05:43 Benzocaine/Menthol (*Bkc) 18 Ea Lozenge PO 1 lozenge PRN PRN Administration Sore Throat Benzonatate 100 mg 07/09/25 12:55 Benzonatate 100 Mg Capsule PO TID PRN Cough Diazepam 5 mg 07/10/25 15:27 Diazepam Inj (*Crx) 10 Mg/2 Ml Syringe IV PUSH Q6HR PRN Muscle Spasm Enoxaparin Sodium 40 mg 07/09/25 13:05 07/11/25 08:58 Enoxaparin 40 Mg/0.4 Ml Syringe SUB-Q 40 mg DAILY MERCED Administration Guaifenesin 600 mg 07/09/25 13:05 07/10/25 21:40 Guaifenesin 12 Hr 600 Mg Tabcr PO 600 mg Q12HR MERCED Administration Guaifenesin 200 mg 07/10/25 15:30 07/11/25 05:41 Guaifenesin 200 Mg/10 Ml Udc PO 200 mg Q6HR MERCED Administration Hydromorphone HCl 0.5 mg 07/09/25 11:38 07/11/25 00:05 Hydromorphone Hcl Inj (*Crx) 1 Mg/Ml Syr IV PUSH 0.5 mg Q4H PRN Administration Pain Rated 7-10 Sodium Chloride 1,000 mls @ 125 mls/hr 07/09/25 11:40 07/11/25 07:55 Normal Saline Iv IV CONT 125 mls/hr .Q8H MERCED Administration Ceftriaxone Sodium 1 gm/ 50 mls @ 100 mls/hr 07/10/25 10:00 07/10/25 09:11 Sodium Chloride IVPB 100 mls/hr Q24H MERCED Administration Azithromycin 500 mg/ Sodium 250 mls @ 250 mls/hr 07/10/25 10:00 07/10/25 10:20 Chloride IVPB 07/13/25 10:59 250 mls/hr Q24H MERCED Administration Lidocaine 1 patch 07/11/25 09:00 07/11/25 08:54 Lidocaine 5% Patch TRANSDERM 1 patch DAILY MERCED Administration Nifedipine 20 mg 07/10/25 15:30 07/11/25 05:41 Nifedipine 10 Mg Capsule PO Not Given Q8HR MERCED Ondansetron HCl 4 mg 07/09/25 11:38 07/11/25 00:06 Ondansetron Inj 4 Mg/2 Ml Vial IV PUSH 4 mg Q4H PRN Administration Nausea Pantoprazole Sodium 40 mg 07/09/25 13:05 07/11/25 08:55 Pantoprazole Sodium Iv 40 Mg Vial IV PUSH 40 mg QAM MERCED Administration Prednisone 60 mg 07/10/25 15:30 07/11/25 09:00 Prednisone 20 Mg Tablet PO 07/12/25 09:01 60 mg DAILY MERCED Administration Radiology Results: ITS Impressions Chest/Abdomen/Pelvis CTA 07/09/25 11:41 IMPRESSION: 1. Negative for pulmonary embolism. CHF with early basilar posterior bronchopneumonia. Accounting for differences in technique, the findings appear improved compared to the previous exam. There are right-sided acute rib fr actures detailed above with healing. 2. Small bowel obstruction. Transition point in the pelvis. 3. Incidental findings above Abdomen X-Ray 07/09/25 12:42 Impression: 1. Small bowel obstruction Chest X-Ray 07/09/25 12:43 Impression: CHF. Superimposed probable pneumonia Upper GI and Small Bowel X-Ray 07/10/25 19:22 IMPRESSION: Small bowel obstruction with probable transition point in the distal small bowel Labs Labs: Laboratory Results - last 24 hr 07/11/25 07:04 WBC 11.4 H RBC 4.07 L Hgb 12.0 L Hct 38.9 L MCV 95.6 MCH 29.5 MCHC 30.8 L RDW 13.7 Plt Count 283 MPV 9.2 Sodium 138 Potassium 4.4 Chloride 102 Carbon Dioxide 29 Anion Gap 7 BUN 43 H Creatinine 0.96 Estim Creat Clear Calc 64 Estimated GFR > 60 Glucose 118 H Calcium 8.5 Magnesium 2.5 H Total Bilirubin 0.4 AST 26 ALT 17 Alkaline Phosphatase 65 Total Protein 6.7 Albumin 3.5
[2025-07-11] MEDS: cefTRIAXone 1 GM in SODIUM CHLORIDE 0.9% IV 50 ML 100 ML IVPB (09:44)
[2025-07-11] MEDS: IPRATROPIUM 0.5 MG/ALBUTEROL SULFATE 2.5 MG AMPUL.NEB 3 ML INHALATION (09:59)
[2025-07-11] MEDS: AZITHROMYCIN IV 500 MG in SODIUM CHLORIDE 0.9% IV 250 ML IVPB (10:41)
[2025-07-11] MEDS: ASPIRIN 81 MG ENTERIC TABLET PO (12:11)
--- NOTE | 2025-07-11 13:12 | P.PNIM_ITS ---
Progress Note: A&P Assessment and Plan (1) Small bowel obstruction: Code(s): K56.609 - Unspecified intestinal obstruction, unspecified as to partial versus complete obstruction <Noe Moncada Student - Last Filed: 07/11/25 13:25> Status: Acute <Noe Moncada, Student - Last Filed: 07/11/25 13:25> Assessment and Plan: CTA chest/abd/pelvis, 07/09: showing Small bowel obstruction. Transition point in the pelvis. abdomen XR, 07/09: Small bowel obstruction, suspect SBO secondary to recent opioid use due to fall on 07/04, no previous history of SBO or abdominal surgeries, 07/11 abdominal xray shows partial resolution of obstruction * general surgery consulted * IV fluids: 125 mL/hr * IV Dilaudid for pain management * monitor renal function and electrolytes * Repeat abdominal xray shows partial resolution of obstruction * NG tube removed per general surgery recommendations * Clear liquid diet per general surgery recommendations <Noe Moncada, Student - Last Filed: 07/11/25 13:25> (2) JOHANNA (acute kidney injury): Code(s): N17.9 - Acute kidney failure, unspecified <Noe Moncada Student - Last Filed: 07/11/25 13:25> Status: Acute <Noe Moncada, Student - Last Filed: 07/11/25 13:25> Assessment and Plan: mild creatinine 1.37, BUN 49, GFR 50 upon admission. Previously 1.02 on 07/04, no further baseline available. likely secondary to SBO, consider further workup and nephrology consultation * IV fluids * trend renal function * trend electrolytes, correct as needed * cr today 0.96, BUN 43, GFR >60 <Noe Moncada, Student - Last Filed: 07/11/25 13:25> RESOLVED mild creatinine 1.37, BUN 49, GFR 50 upon admission. Previously 1.02 on 07/04, no further baseline available. likely secondary to SBO, consider further workup and nephrology consultation * IV fluids * trend renal function * trend electrolytes, correct as needed * cr today 0.96, BUN 43, GFR >60 <Maisha Golden, BOX C[employer]TER - Last Filed: 07/11/25 14:01> (3) Pneumonia: Qualifiers: Laterality: bilateral Lung location: lower lobe of lung Pneumonia type: due to unspecified organism Qualified Code(s): J18.9 - Pneumonia, unspecified organism <Noe Moncada, Student - Last Filed: 07/11/25 13:25> Code(s): J18.9 - Pneumonia, unspecified organism <Noe Moncada, Student - Last Filed: 07/11/25 13:25> Status: Acute <Noe Moncada, Student - Last Filed: 07/11/25 13:25> Assessment and Plan: CXR: CHF. Superimposed probable pneumonia, risk/complicating factors: remote rib fractures, interstitial lung disease, Viral PCR negative on 07/09 * IV ceftriaxone and azithromycin on 07/09 * Mucinex suyapa * Tylenol p.r.n., Tessalon Perles p.r.n., DuoNebs p.r.n. * encourage IS * no current supplemental O2 requirement * Resume patient's stress dose pack prednisone 60 mg x 2 more days <Noe Moncada, Student - Last Filed: 07/11/25 13:25> (4) Ribs, multiple fractures: Qualifiers: Encounter type: subsequent encounter Fracture healing: with routine healing Fracture type: closed Laterality: right Qualified Code(s): S22.41XD - Multiple fractures of ribs, right side, subsequent encounter for fracture with routine healing <Noe Moncada, Student - Last Filed: 07/11/25 13:25> Code(s): S22.49XA - Multiple fractures of ribs, unspecified side, initial encounter for closed fracture <Noe Moncada, Student - Last Filed: 07/11/25 13:25> Status: Acute <Noe Moncada, Student - Last Filed: 07/11/25 13:25> Assessment and Plan: CTA showed remote fractures of the left clavicle and the ribs bilaterally with healing fractures of the posterior right sixth seventh and eighth ribs which are nondisplaced. * encourage incentive spirometer * secondary to recent fall on 07/04 suspected as the patient has not sustained any other falls or injuries * IV Dilaudid for pain management * add lidocaine patches * patient also reported muscle spasms was giving be dose of diazepam IV 2 mg <Noe Moncada, Student - Last Filed: 07/11/25 13:25> CTA showed remote fractures of the left clavicle and the ribs bilaterally with healing fractures of the posterior right sixth seventh and eighth ribs which are nondisplaced. * encourage incentive spirometer * secondary to recent fall on 07/04 suspected as the patient has not sustained any other falls or injuries * IV Dilaudid for pain management * add lidocaine patches * patient also reported muscle spasms was giving be dose of diazepam IV 5 mg <Maisha Golden, BOX C[employer]TER - Last Filed: 07/11/25 14:01> (5) Acute hyponatremia: Code(s): E87.1 - Hypo-osmolality and hyponatremia <Noe Moncada, Student - Last Filed: 07/11/25 13:25> Status: Resolved <Noe Moncada, Student - Last Filed: 07/11/25 13:25> Assessment and Plan: mild, Na 131 upon admission * IV fluids trial if worsening could be SIADH secondary to trauma * trend Na * Monitor neuro * Na 138 today * Tolerating clear liquids <Noe Moncada, Student - Last Filed: 07/11/25 13:25> RESOLVED mild, Na 131 upon admission * IV fluids trial if worsening could be SIADH secondary to trauma * trend Na * Monitor neuro * Na 138 today * Tolerating clear liquids <Maisha Golden, BOX C[employer]TER - Last Filed: 07/11/25 14:01> Assessment and Plan: Code status: Full code per patient DVT prophylaxis: Lovenox Stress ulcer prophylaxis: NA PT/OT notes: ambulatory Disposition: patient continues admission to the medical unit for current SBO and pneumonia with recent rib fractures will continue with NG tube consult to General surgery. <Noe Moncada Student - Last Filed: 07/11/25 13:25> Code status: Full code per patient DVT prophylaxis: Lovenox Stress ulcer prophylaxis: NA PT/OT notes: ambulatory Disposition: patient continues admission to the medical unit for current SBO and pneumonia with recent rib fractures, NG tube removed and part resolution of obstruction currently on clear liquid diet will advance tolerated patient plans to return home no need for home health or rehab. <Maisha Golden APRN - Last Filed: 07/11/25 14:01> Time Spent With Patient Time with patient: 25 - 35 minutes <Noe Moncada Student - Last Filed: 07/11/25 13:25> Subjective Date/time seen: 07/11/25 13:12 <Noe Moncada Student - Last Filed: 07/11/25 13:25> Interval history: Patient is a 79-year-old male admitted for treatment of SBO and pneumonia 07/10/2025: Patient up in chair mild to moderate reported mostly due to muscle spasms from recent fall. Current NG to clamped after bowel series. Patient states still no BM but did have some flatulence. Patient with noticeable productive cough. Spoke with patient regarding home medications of nifedipine and his prednisone orders fixed. Patient denied any chest pain, shortness a breath, nausea vomiting. 07/11/2025: Patient up in the chair. Reports several bowel movements overnight. NG tube removed per general surgery recommendations. Denies nausea, vomiting, and abdominal pain. Tolerating clear liquid diet. Denies chest pain and shortness or breath. States that he would like to discharge to home tomorrow. <Noe Moncada Student - Last Filed: 07/11/25 13:25> Patient is a 79-year-old male admitted for treatment of SBO and pneumonia 07/11/2025: Patient up in the chair. Reports several bowel movements overnight. NG tube shonda divina per general surgery recommendations. Denies nausea, vomiting, and abdominal pain. Tolerating clear liquid diet. Denies chest pain and shortness or breath. States that he would like to discharge to home tomorrow. <Maisha Golden, BOX C[employer]TER - Last Filed: 07/11/25 14:01> Review of Systems Review of Systems: All systems reviewed & are unremarkable except as noted in HPI and below <Noe Moncada - Last Filed: 07/11/25 13:25> Constitutional: Constitutional: Reports no additional constitutional complaints <Noe Moncada - Last Filed: 07/11/25 13:25> Eyes: Eyes: Reports no additional eye complaints <Noe Moncada - Last Filed: 07/11/25 13:25> ENT: Reports system reviewed and no additional complaints, except as documented <Noe Moncada, - Last Filed: 07/11/25 13:25> Cardiovascular: Cardiovascular: Reports no additional cardiovascular complaints <Noe Moncada - Last Filed: 07/11/25 13:25> Respiratory: Respiratory: Reports no additional respiratory complaints <Noe Moncada - Last Filed: 07/11/25 13:25> Gastrointestinal: Gastrointestinal: Reports no additional gastrointestinal complaints <Noe Moncada - Last Filed: 07/11/25 13:25> Genitourinary: Genitourinary: Reports no additional male genitourinary complaints <Noe Moncada - Last Filed: 07/11/25 13:25> Musculoskeletal: Musculoskeletal: Reports no additional musculoskeletal complaints <Noe Moncada - Last Filed: 07/11/25 13:25> Integumentary/Breasts: Skin/Breast: Reports system reviewed and no additional complaints, except as docu <Noe Moncada, - Last Filed: 07/11/25 13:25> Neurologic: Reports system reviewed and no additional complaints, except as documented <Noe Moncada - Last Filed: 07/11/25 13:25> Psychiatric: Psychiatric: Reports no additional psychiatric complaints <Noe Moncada - Last Filed: 07/11/25 13:25> Exam Const: General: comfortable and no acute distress <Noe Moncada Student - Last Filed: 07/11/25 13:25> HENMT: Ears: TM's normal bilaterally <Noe Moncada Student - Last Filed: 07/11/25 13:25> Face/Nose/Sinus: Normal nares present <Noe Moncada Student - Last Filed: 07/11/25 13:25> Mouth: Yes moist mucous membranes <Noe Moncada, Student - Last Filed: 07/11/25 13:25> Eyes: General: appearance normal, both eyes and all related structures <Noe Moncada, Student - Last Filed: 07/11/25 13:25> Sclera: sclerae normal <Noe Moncada, Student - Last Filed: 07/11/25 13:25> Pupils: Equal, round and reactive pupils present <Noe Moncada Student - Last Filed: 07/11/25 13:25> Neck: Neck: supple and no JVD <Noe Moncada - Last Filed: 07/11/25 13:25> Resp: Effort & Inspection: normal respiratory effort <Noe Moncada Student - Last Filed: 07/11/25 13:25> Auscultation: rhonchi right upper <Noe Moncada - Last Filed: 07/11/25 13:25> Cardio: Rate: regular rate <Noe Moncada Student - Last Filed: 07/11/25 13:25> Rhythm: regular rhythm <Noe Moncada Student - Last Filed: 07/11/25 13:25> GI: GI Palp: Yes Soft to palpation <Noe Moncada Student - Last Filed: 07/11/25 13:25> Auscultation: Hypoactive bowel sounds present <Noe Moncada Student - Last Filed: 07/11/25 13:25> Skin: General skin exam: normal color <Noe Moncada Student - Last Filed: 07/11/25 13:25> Neuro: Speech: normal speech <Noe Moncada Student - Last Filed: 07/11/25 13:25> Motor exam (neuro): 5/5 motor strength present throughout and Normal motor muscle tone present throughout <Noe Moncada Student - Last Filed: 07/11/25 13:25> Sensory Exam: normal sensation <Noe Moncada Student - Last Filed: 07/11/25 13:25> Extrem: General: normal to inspection <Noe Moncada Student - Last Filed: 07/11/25 13:25> Psych: Mental Status: mental status grossly normal <Noe Moncada Student - Last Filed: 07/11/25 13:25> Objective Data Vital Signs Vital Signs: Vital Signs - 24 hr 07/10/25 14:00 07/10/25 21:11 07/10/25 21:40 Temperature 97.4 F L 98.2 F Pulse Rate 89 75 Respiratory Rate 20 22 H Blood Pressure 128/68 132/74 Pulse Oximetry 100 96 96 Oxygen Delivery Nasal Cannula Oxygen Flow Rate 2 07/11/25 04:18 07/11/25 08:00 07/11/25 10:02 Temperature 97.0 F L Pulse Rate 95 90 Respiratory Rate 18 18 Blood Pressure 151/69 H Pulse Oximetry 97 97 Oxygen Delivery Nasal Cannula Oxygen Flow Rate 3 07/11/25 10:04 Temperature Pulse Rate Respiratory Rate Blood Pressure Pulse Oximetry 92 Oxygen Delivery Nasal Cannula Oxygen Flow Rate 3 <Noe Moncada Student - Last Filed: 07/11/25 13:25> Intake/Output Intake/Output: Intake & Output 07/08/25 07/09/25 07/10/25 07/11/25 23:59 23:59 23:59 23:59 Intake Total 2400 2212.5 1550 Output Total 1050 1350 Balance 1350 862.5 1550 <Noe Moncada Student - Last Filed: 07/11/25 13:25> Meds/Results Medications: Active Medications Generic Name Dose Route Start Last Admin Trade Name Freq PRN Reason Stop Dose Admin Acetaminophen 650 mg 07/09/25 11:38 Acetaminophen 650 Mg Suppository RECTAL Q6H PRN Mild Pain (1-3) or Fever Hydrocodone Bitart/Acetaminophen 1 tab 07/09/25 12:57 Hydrocodone/Acetaminophen (*Crx) 5-325 Mg Tablet PO Q4H PRN Pain Rated 4-6 Albuterol/Ipratropium 3 ml 07/09/25 12:55 07/11/25 09:59 Ipratropium 0.5 Mg/Albuterol Sulfate 2.5 Mg Ampul.Neb 3 Ml INHALATION 3 ml Q6HRT PRN Administration Shortness Of Breath Or Wheezing Aspirin 81 mg 07/10/25 09:00 07/11/25 12:11 Aspirin 81 Mg Enteric Tablet PO 81 mg DAILY SUYAPA Administration Benzocaine 1 lozenge 07/09/25 18:25 07/11/25 05:43 Benzocaine/Menthol (*Bkc) 18 Ea Lozenge PO 1 lozenge PRN PRN Administration Sore Throat Benzonatate 100 mg 07/09/25 12:55 Benzonatate 100 Mg Capsule PO TID PRN Cough Diazepam 5 mg 07/10/25 15:27 Diazepam Inj (*Crx) 10 Mg/2 Ml Syringe IV PUSH Q6HR PRN Muscle Spasm Enoxaparin Sodium 40 mg 07/09/25 13:05 07/11/25 08:58 Enoxaparin 40 Mg/0.4 Ml Syringe SUB-Q 40 mg DAILY SUYAPA Administration Guaifenesin 200 mg 07/10/25 15:30 07/11/25 12:11 Guaifenesin 200 Mg/10 Ml Udc PO 200 mg Q6HR SUYAPA Administration Hydromorphone HCl 0.5 mg 07/09/25 11:38 07/11/25 00:05 Hydromorphone Hcl Inj (*Crx) 1 Mg/Ml Syr IV PUSH 0.5 mg Q4H PRN Administration Pain Rated 7-10 Sodium Chloride 1,000 mls @ 125 mls/hr 07/09/25 11:40 07/11/25 07:55 Normal Saline Iv IV CONT 125 mls/hr .Q8H SUYAPA Administration Ceftriaxone Sodium 1 gm/ 50 mls @ 100 mls/hr 07/10/25 10:00 07/11/25 09:44 Sodium Chloride IVPB 100 mls/hr Q24H SUYAPA Administration Azithromycin 500 mg/ Sodium 250 mls @ 250 mls/hr 07/10/25 10:00 07/11/25 10:41 Chloride IVPB 07/13/25 10:59 250 mls/hr Q24H SUYAPA Administration Lidocaine 1 patch 07/11/25 09:00 07/11/25 08:54 Lidocaine 5% Patch TRANSDERM 1 patch DAILY SUYAPA Administration Nifedipine 60 mg 07/11/25 12:45 Nifedipine 30 Mg Tab.Er.24 PO QAM SUYAPA Ondansetron HCl 4 mg 07/09/25 11:38 07/11/25 00:06 Ondansetron Inj 4 Mg/2 Ml Vial IV PUSH 4 mg Q4H PRN Administration Nausea Pantoprazole Sodium 40 mg 07/09/25 13:05 07/11/25 08:55 Pantoprazole Sodium Iv 40 Mg Vial IV PUSH 40 mg QAM SUYAPA Administration Prednisone 60 mg 07/10/25 15:30 07/11/25 09:00 Prednisone 20 Mg Tablet PO 07/12/25 09:01 60 mg DAILY SUYAPA Administration <Noe Moncada, Student - Last Filed: 07/11/25 13:25> Radiology Results: ITS Impressions Chest/Abdomen/Pelvis CTA 07/09/25 11:41 IMPRESSION: 1. Negative for pulmonary embolism. CHF with early basilar posterior bronchopneumonia. Accounting for differences in technique, the findings appear improved compared to the previous exam. There are right-sided acute rib fractures detailed above with healing. 2. Small bowel obstruction. Transition point in the pelvis. 3. Incidental findings above Chest X-Ray 07/09/25 12:43 Impression: CHF. Superimposed probable pneumonia Upper GI and Small Bowel X-Ray 07/10/25 19:22 IMPRESSION: Small bowel obstruction with probable transition point in the distal small bowel Abdomen X-Ray 07/11/25 10:35 IMPRESSION: Diffuse to moderate dilatation of the small bowel with contrast going into the distal colon. Findings likely represent ileus versus partial small bowel obstruction. <Noe Moncada, Student - Last Filed: 07/11/25 13:25> Labs Labs: Laboratory Results - last 24 hr 07/11/25 07:04 WBC 11.4 H RBC 4.07 L Hgb 12.0 L Hct 38.9 L MCV 95.6 MCH 29.5 MCHC 30.8 L RDW 13.7 Plt Count 283 MPV 9.2 Sodium 138 Potassium 4.4 Chloride 102 Carbon Dioxide 29 Anion Gap 7 BUN 43 H Creatinine 0.96 Estim Creat Clear Calc 64 Estimated GFR > 60 Glucose 118 H Calcium 8.5 Magnesium 2.5 H Total Bilirubin 0.4 AST 26 ALT 17 Alkaline Phosphatase 65 Total Protein 6.7 Albumin 3.5 <Mateo Escobar - Last Filed: 07/11/25 13:25> Quality VTE Prophylaxis VTE prophylaxis: pharmacologic ordered <Mateo Escobar - Last Filed: 07/11/25 13:25> -Patient's previous records reviewed on admission -ER notes reviewed in detail on admission -discussed all findings and current treatment plan with patient/Family/POA -Consultations reviewed for recommendations -Patient's disposition for safe discharge discussed with skilled nursing case manager Dictation performed by [employer] direct speech recognition software, therefore scoring machine operator variants and typographical errors may occur. <Mateo Escobar - Last Filed: 07/11/25 13:25> Hospitalist [facility] Advance Care Plan I have confirmed that the patient's Advanced Care Plan is present, code status is documented, or surrogate decision maker is listed in patient medical record.: Yes <Mateo Escobar - Last Filed: 07/11/25 13:25> Medication Reconciliation I have utilized all available resources to obtain, update and review the patients current medications (includes all prescriptions, OTC, herbals, cannabis, and nutritional supplements).: Yes <Mateo Escobar - Last Filed: 07/11/25 13:25> The patient is not eligible for med reconciliation; the patient is in a emergent medical situation where delaying treatment would jeopardize the patients health.: No <Mateo Escobar - Last Filed: 07/11/25 13:25>
[2025-07-11] MEDS: HYDROcodone/acetaminophen (*CRX) 5-325 MG TABLET 1 TAB PO (21:27)
[2025-07-11] MEDS: BENZONATATE 100 MG CAPSULE PO (21:27)
[2025-07-12] MEDS: BENZONATATE 100 MG CAPSULE PO ×2 (02:56→08:49)
[2025-07-12] MEDS: HYDROmorphone HCL INJ (*CRX) 1 MG/ML SYR 0.5 MG IV PUSH (02:57)
[2025-07-12 06:00] VITALS: BP 125/57; PULSE 69; RESP 14; TEMP 36.2; O2SAT 100
[2025-07-12 06:20] LABS: Hematocrit 35.6 % (42.0-52.0); Hemoglobin 10.8 g/dL (14.0-18.0); Mean Corpuscular HGB Conc 30.3 g/dl (32-36); Mean Corpuscular Hemoglobin 29.3 pg (26-34); Mean Corpuscular Volume 96.5 fl (80-100); Platelet Count Result 270 k/mm3 (150-375); Red Blood Count 3.69 M/mm3 (4.6-6.20); White Blood Count 9.5 K/mm3 (4.5-10.0)
[2025-07-12] MEDS: SODIUM CHLORIDE 0.9% IV 1,000 ML 125 ML IV CONT (06:23)
[2025-07-12 06:47] LABS: Alanine Aminotransferase 12 U/L (6-50); Albumin Level 2.9 g/dL (3.5-5.1); Alkaline Phosphatase 73 U/L (38-126); Anion Gap 2 mmol/L (4-12); Aspartate Amino Transferase 39 U/L (17-59); Bilirubin,Total 0.2 mg/dL (0.2-1.3); Blood Urea Nitrogen 28 mg/dL (9-20); Calcium 7.9 mg/dL (8.4-10.2); Carbon Dioxide 31 mmol/L (22-30); Chloride 103 mmol/L (98-107); Estimated CRCL calculation 83 ml/min; Estimated Glomerular Filt Rate > 60; Glucose 94 mg/dL (65-110); Magnesium 2.3 mg/dL (1.6-2.3); Potassium 3.8 mmol/L (3.4-5.0); Sodium 136 mmol/L (137-145); Total Protein 5.9 g/dL (6.3-8.2)
[2025-07-12 08:00] VITALS: O2SAT 100
[2025-07-12] MEDS: LIDOCAINE 5% PATCH 1 PATCH TRANSDERM (08:44)
[2025-07-12] MEDS: ASPIRIN 81 MG ENTERIC TABLET PO (08:48)
[2025-07-12] MEDS: ENOXAPARIN 40 MG/0.4 ML SYRINGE SUB-Q (08:49)
[2025-07-12] MEDS: PANTOPRAZOLE SODIUM IV 40 MG VIAL IV PUSH (08:49)
[2025-07-12] MEDS: cefTRIAXone 1 GM in SODIUM CHLORIDE 0.9% IV 50 ML 100 ML IVPB (09:31)
[2025-07-12] MEDS: AZITHROMYCIN IV 500 MG in SODIUM CHLORIDE 0.9% IV 250 ML IVPB (10:08)
--- NOTE | 2025-07-12 10:32 | P.PNGS_ITS ---
Progress Note: A&P Assessment and Plan (1) Small bowel obstruction: Code(s): K56.609 - Unspecified intestinal obstruction, unspecified as to partial versus complete obstruction Status: Acute Assessment and Plan: * Resolving. Bowels are moving and he is tolerating full liquids. * Will advance to solid food and stop IV fluids. * Okay to discharge from a surgical standpoint once tolerating solids. F/u with surgery only PRN. (2) Ribs, multiple fractures: Qualifiers: Encounter type: subsequent encounter Fracture type: closed Laterality: right Fracture healing: with routine healing Qualified Code(s): S22.41XD - Multiple fractures of ribs, right side, subsequent encounter for fracture with routine healing Code(s): S22.49XA - Multiple fractures of ribs, unspecified side, initial encounter for closed fracture Status: Acute Assessment and Plan: * Will need to limit opioid use when dealing with pain control, which was discussed with the patient and his . Plan I have discussed the patient's case and plan of care with Dr. Pan. Subjective Subjective Date/Time Seen: 07/12/25 10:32 Patient reports: no new complaints, feels better (denies nausea, vomiting, or abdominal/back pain), tolerating liquids well, flatus and bowel movement (multiple bowel movements in the past 24 hours and already 1 this morning) Exam Const: General: comfortable and no acute distress GI: Inspection: other (less distended and softer today) GI Palp: Yes Soft to palpation, No Tenderness to palpation present (GI), No Guarding due to palpation present (GI) and No Rebound tenderness present Auscultation: normal bowel sounds Objective Data Vital Signs Vital Signs: Vital Signs - 24 hr 07/11/25 13:59 07/11/25 20:54 07/11/25 21:19 Temperature 96.9 F L 97.4 F L Pulse Rate 96 91 Respiratory Rate 20 14 Blood Pressure 134/72 140/69 Pulse Oximetry 97 93 100 Oxygen Delivery Nasal Cannula Oxygen Flow Rate 3 07/11/25 21:27 07/12/25 06:00 07/12/25 08:00 Temperature 97.2 F L Pulse Rate 69 Respiratory Rate 14 Blood Pressure 125/57 L Pulse Oximetry 100 100 100 Oxygen Delivery Nasal Cannula Room Air Oxygen Flow Rate 3 Intake/Output Intake/Output: Intake & Output 07/09/25 07/10/25 07/11/25 07/12/25 23:59 23:59 23:59 23:59 Intake Total 2400 2212.5 3730 1640 Output Total 1050 1350 300 Balance 1350 862.5 3730 1340 Meds/Results Medications: Active Medications Generic Name Dose Route Start Last Admin Trade Name Freq PRN Reason Stop Dose Admin Acetaminophen 650 mg 07/09/25 11:38 Acetaminophen 650 Mg Suppository RECTAL Q6H PRN Mild Pain (1-3) or Fever Hydrocodone Bitart/Acetaminophen 1 tab 07/09/25 12:57 07/11/25 21:27 Hydrocodone/Acetaminophen (*Crx) 5-325 Mg Tablet PO 1 tab Q4H PRN Administration Pain Rated 4-6 Albuterol/Ipratropium 3 ml 07/09/25 12:55 07/11/25 09:59 Ipratropium 0.5 Mg/Albuterol Sulfate 2.5 Mg Ampul.Neb 3 Ml INHALATION 3 ml Q6HRT PRN Administration Shortness Of Breath Or Wheezing Aspirin 81 mg 07/10/25 09:00 07/12/25 08:48 Aspirin 81 Mg Enteric Tablet PO 81 mg DAILY MERCED Administration Benzocaine 1 lozenge 07/09/25 18:25 07/11/25 05:43 Benzocaine/Menthol (*Bkc) 18 Ea Lozenge PO 1 lozenge PRN PRN Administration Sore Throat Benzonatate 100 mg 07/09/25 12:55 07/12/25 08:49 Benzonatate 100 Mg Capsule PO 100 mg TID PRN Administration Cough Diazepam 5 mg 07/10/25 15:27 Diazepam Inj (*Crx) 10 Mg/2 Ml Syringe IV PUSH Q6HR PRN Muscle Spasm Enoxaparin Sodium 40 mg 07/09/25 13:05 07/12/25 08:49 Enoxaparin 40 Mg/0.4 Ml Syringe SUB-Q 40 mg DAILY MERCED Administration Guaifenesin 200 mg 07/10/25 15:30 07/12/25 05:18 Guaifenesin 200 Mg/10 Ml Udc PO 200 mg Q6HR MERCED Administration Hydromorphone HCl 0.5 mg 07/09/25 11:38 07/12/25 02:57 Hydromorphone Hcl Inj (*Crx) 1 Mg/Ml Syr IV PUSH 0.5 mg Q4H PRN Administration Pain Rated 7-10 Sodium Chloride 1,000 mls @ 125 mls/hr 07/09/25 11:40 07/12/25 06:23 Normal Saline Iv IV CONT 125 mls/hr .Q8H MERCED Administration Ceftriaxone Sodium 1 gm/ 50 mls @ 100 mls/hr 07/10/25 10:00 07/12/25 09:31 Sodium Chloride IVPB 100 mls/hr Q24H MERCED Administration Azithromycin 500 mg/ Sodium 250 mls @ 250 mls/hr 07/10/25 10:00 07/12/25 10:08 Chloride IVPB 07/13/25 10:59 250 mls/hr Q24H MERCED Administration Lidocaine 1 patch 07/11/25 09:00 07/12/25 08:44 Lidocaine 5% Patch TRANSDERM 1 patch DAILY MERCED Administration Nifedipine 60 mg 07/11/25 12:45 07/12/25 08:57 Nifedipine 30 Mg Tab.Er.24 PO 60 mg QAM MERCDE Administration Ondansetron HCl 4 mg 07/09/25 11:38 07/11/25 00:06 Ondansetron Inj 4 Mg/2 Ml Vial IV PUSH 4 mg Q4H PRN Administration Nausea Pantoprazole Sodium 40 mg 07/09/25 13:05 07/12/25 08:49 Pantoprazole Sodium Iv 40 Mg Vial IV PUSH 40 mg QAM MERCED Administration Radiology Results: ITS Impressions Chest/Abdomen/Pelvis CTA 07/09/25 11:41 IMPRESSION: 1. Negative for pulmonary embolism. CHF with early basilar posterior bronchopneumonia. Accounting for differences in technique, the findings appear improved compared to the previous exam. There are right-sided acute rib fractures detailed above with healing. 2. Small bowel obstruction. Transition point in the pelvis. 3. Incidental findings above Chest X-Ray 07/09/25 12:43 Impression: CHF. Superimposed probable pneumonia Upper GI and Small Bowel X-Ray 07/10/25 19:22 IMPRESSION: Small bowel obstruction with probable transition point in the distal small bowel Abdomen X-Ray 07/11/25 10:35 IMPRESSION: Diffuse to moderate dilatation of the small bowel with contrast going into the distal colon. Findings likely represent ileus versus partial small bowel obstruction. Labs Labs: Laboratory Results - last 24 hr 07/12/25 05:06 WBC 9.5 RBC 3.69 L Hgb 10.8 L Hct 35.6 L MCV 96.5 MCH 29.3 MCHC 30.3 L RDW 13.7 Plt Count 270 MPV 9.8 Sodium 136 L Potassium 3.8 Chloride 103 Carbon Dioxide 31 H Anion Gap 2 L BUN 28 H D Creatinine 0.73 Estim Creat Clear Calc 83 Estimated GFR > 60 Glucose 94 Calcium 7.9 L Magnesium 2.3 Total Bilirubin 0.2 AST 39 ALT 12 Alkaline Phosphatase 73 Total Protein 5.9 L Albumin 2.9 L
--- NOTE | 2025-07-12 11:01 | P.DS_ITS ---
DS: Admitting Diagnosis Discharge Date 07/12/2025 Admitting Diagnosis SBO/pneumonia/JOHANNA DS: Discharge Diagnosis Discharge Diagnosis (1) Small bowel obstruction: Code(s): K56.609 - Unspecified intestinal obstruction, unspecified as to partial versus complete obstruction Status: Acute (2) JOHANNA (acute kidney injury): Code(s): N17.9 - Acute kidney failure, unspecified Status: Acute (3) Pneumonia: Qualifiers: Laterality: bilateral Lung location: lower lobe of lung Pneumonia type: due to unspecified organism Qualified Code(s): J18.9 - Pneumonia, unspecified organism Code(s): J18.9 - Pneumonia, unspecified organism Status: Acute (4) Ribs, multiple fractures: Qualifiers: Encounter type: subsequent encounter Fracture healing: with routine healing Fracture type: closed Laterality: right Qualified Code(s): S22.41XD - Multiple fractures of ribs, right side, subsequent encounter for fracture with routine healing Code(s): S22.49XA - Multiple fractures of ribs, unspecified side, initial encounter for closed fracture Status: Acute (5) Acute hyponatremia: Code(s): E87.1 - Hypo-osmolality and hyponatremia Status: Resolved DS: Summary Hospital Course Reason for hospitalization: SBO/pneumonia/JOHANNA Hospital Course: Admission: Patient was a 79 y/o M with PMH of [place]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 The patient presents here from home on 07/09 for further evaluation of abdominal pain, abdominal distension, inability to pass flatus, and nausea/vomiting. He reports his symptoms started yesterday evening (07/08) and was precipitated by 4 days of constipation. He reports his emesis was dark. He has not currently on anticoagulation, does take a daily ASA. Denies any NSAID or alcohol use. He trialed Tylenol, oxycodone, bisacodyl suppository XX at home. Pain medications did not offer any relief, the suppository did produce a moderate bowel movement yesterday of normal consistency. Symptoms are additionally accompanied by diaphoresis, back spasms, and right chest wall/back pain. He denies any previous history of small-bowel obstruction or abdominal surgeries. Additionally, the patient was here on 07/04 for evaluation post syncope. He reports he had a syncopal episode while he was giving his dog a bath at home. He he does not remember falling, however he sustained a 1.5 cm laceration to the back of his head after he had a positive head strike will on a nearby dresser. reported at that time it that the patient's loss of consciousness was less than 1 minute. Initially confused upon awakening, may have lasted for around 30 minutes. No seizure-like activity witnessed. Post fall he reported upper right back pain and chest pain with deep inspiration. At that time he underwent a CXR, head CT, C-spine CT, and chest CT. Imaging was significant for possible pneumonia and age indeterminate L1 burst fracture. He was discharged home with oxycodone, Tylenol, and ibuprofen. In the ED: WBC 16.5 (12.7 on 07/04), normal coags, sodium 131, creatinine 1.37 and GFR 50 (1.02 and GFR >60 on 07/04), glucose 164 (on chronic steroids), lactic 2.1, initial troponin negative, BNP 164, and UA showed 1+ protein and 1+ bili, viral PCR negative. CTA of the chest/abdomen/pelvis showed no PE, early basilar posterior bronchopneumonia, small bowel obstruction with transition point in the pelvis, and right-sided acute rib fractures (healing). Hospital Course: Patient was admitted to the medical unit and initiated on treatment for SBO and pneumonia. CTA chest/abd/pelvis, 07/09: showing Small bowel obstruction. Transition point in the pelvis. abdomen XR, 07/09: Small bowel obstruction, suspect SBO secondary to recent opioid use due to fall on 07/04, no previous history of SBO or abdominal surgeries, General surgery consulted who recommended bowel rest, IV fluids, and NG tube an dto continue with conservative treatments. Serial KUB performed and on 07/11 abdominal xray shows partial resolution of obstruction. Patient NG tube was pulled after he was having flatulence and had reported BM. Patient was then placed on clear liquid diet and was able to advance as tolerated with no complications. Patient with mild JOHANNA that improved with IV fluids. He was also treated for pneumonia and exacerbation of his ILD with ABX and prednisone with overall improvement of of respiratory status and remained on room air. Patient seen and assessed day of discharged tolerating all oral intake and passing gas with BM with no N/V or ABD pain. Patient ambulatory and was discharged to home Status at Discharge Functional status at discharge: independent ambulation Time Spent with Patient Time attestation: Total time spent providing and/or coordinating discharge services: Time spent: Greater than 30 minutes Exam Const: General: comfortable and no acute distress Other: , male, elderly, nontoxic appearance HENMT: Face/Nose/Sinus: Normal nares present Mouth: Yes moist mucous membranes Other: NG in place Eyes: General: appearance normal, both eyes and all related structures Sclera: sclerae normal Pupils: Equal, round and reactive pupils present EOM: EOMs intact bilaterally Resp: Effort & Inspection: normal respiratory effort Auscultation: clear to auscultation bilaterally Cardio: Rate: regular rate Rhythm: regular rhythm Other: S1-S2 present without murmur, rub, ectopy GI: GI Palp: Yes Soft to palpation Auscultation: normal bowel sounds Skin: General skin exam: normal color, no rashes or lesions noted and fluctuance Wounds: no wounds Other: Bilateral peripheral stenosis Neuro: Cranial nerves: Yes Equal, round and reactive pupils present Speech: normal speech Motor exam (neuro): 5/5 motor strength present throughout Sensory Exam: normal sensation Other: A&O x4 Extrem: General: normal to inspection Psych: Mental Status: mental status grossly normal Affect: normal affect Other: Good insight and judgment, pleasant DS: Data Data Completed and Pending Labs on day of discharge: Labs from last 24 hours 07/12/25 05:06 WBC 9.5 RBC 3.69 L Hgb 10.8 L Hct 35.6 L MCV 96.5 MCH 29.3 MCHC 30.3 L RDW 13.7 Plt Count 270 MPV 9.8 Sodium 136 L Potassium 3.8 Chloride 103 Carbon Dioxide 31 H Anion Gap 2 L BUN 28 H D Creatinine 0.73 Estim Creat Clear Calc 83 Estimated GFR > 60 Glucose 94 Calcium 7.9 L Magnesium 2.3 Total Bilirubin 0.2 AST 39 ALT 12 Alkaline Phosphatase 73 Total Protein 5.9 L Albumin 2.9 L Imaging Radiologist's impression: Radiology Results: ITS Impressions Chest/Abdomen/Pelvis CTA 07/09/25 11:41 IMPRESSION: 1. Negative for pulmonary embolism. CHF with early basilar posterior bronchopneumonia. Accounting for differences in technique, the findings appear improved compared to the previous exam. There are right-sided acute rib fractures detailed above with healing. 2. Small bowel obstruction. Transition point in the pelvis. 3. Incidental findings above Chest X-Ray 07/09/25 12:43 Impression: CHF. Superimposed probable pneumonia Upper GI and Small Bowel X-Ray 07/10/25 19:22 IMPRESSION: Small bowel obstruction with probable transition point in the distal small bowel Abdomen X-Ray 07/11/25 10:35 IMPRESSION: Diffuse to moderate dilatation of the small bowel with contrast going into the distal colon. Findings likely represent ileus versus partial small bowel obstruction. Discharge Plan Discharge Attending physician on discharge: Allie Barbosa Consulting providers: Tiny Pan; Noe Moncada; Pérez Marks; Dayanna Ramírez; Maggie Khan; Justice Mcintyre; Sathish Pham Discharging Clinician: Maisha Golden Anticipated Discharge Date/Time: 07/12/25 10:54 Patient Disposition: Home Activity: as tolerated Diet: as tolerated Discharge Instructions: 1). SBO * He did have resolution of small-bowel obstruction wall hospitalized * Advance diet as tolerated * Limit opioid use * Encourage oral hydration * Encourage ambulation 2). Pneumonia * I have prescribed oral antibiotic therapy please take as indicated and complete feeling better * Continue to use your incentive spirometer and [place] 3). Rib Fractures * Limit opioid use use for pain control * Pillow splinting with cough * Encouraged to continue to use your incentive spirometer and cornet How can you care for yourself at home? ? Keep track of any new symptoms or changes in your symptoms. ? Rest until you feel better. ? Be safe with medicines. Take your medicines exactly as prescribed. Call your doctor if you think you are having a problem with your medicine. ? Do not drive after taking a prescription pain medicine. ? Ensure to follow-up with primary care physician as indicated and provide updated medication list provided to you at discharge. When should you call for help? Call 911 anytime you think you may need emergency care. For example, call if: ? You passed out (lost consciousness). Call your doctor now or seek immediate medical care if: ? You have new symptoms like fever, difficulty breathing, Chest pain, vomiting, or rash. ? You have new or different pain. ? You are confused and are having trouble thinking clearly. ? Your symptoms are getting worse. Watch closely for changes in your health, and be sure to contact your doctor if: ? You do not get better as expected. Patient Instructions: Antibiotic Form, Rib Fracture (DC), Community Acquired Pneumonia (DC), Bowel Obstruction (DC) Patient Language: Faroese Stand Alone Forms: General Discharge Information Follow-up/Referrals: Tiny Pan MD [Physician, General Surgery] - Other Referral Note: As needed UNKNOWN,DOCTOR [Primary Care Provider] - 2 Weeks Discharge Medications: New benzonatate 100 mg Capsule 100 mg PO TID PRN (Reason: Cough) Qty: 30 0RF amoxicillin-pot clavulanate 875-125 mg tablet 1 tablet PO Q12H Qty: 4 0RF azithromycin 500 mg tablet 500 mg PO DAILY Qty: 2 0RF Continued acetaminophen 500 mg capsule 1,000 mg PO Q6H PRN (Reason: pain) Qty: 30 0RF nifedipine 60 mg tablet extended release 60 mg PO DAILY oxycodone 5 mg tablet 5 mg PO Q4H PRN (Reason: pain) aspirin [Adult Aspirin Regimen] 81 mg tablet,delayed release (DR/EC) 81 mg PO DAILY cyclobenzaprine 5 mg tablet 5 mg PO TID PRN (Reason: muscle spasm) lidocaine 5 % adhesive patch,medicated See Rx Instructions .ROUTE .COMPLEX Rx Instructions: leave on most painful area for up to 12 hrs famotidine 20 mg tablet 20 mg PO Q12H prednisone 20 mg tablet 60 mg PO DAILY Qty: 1 0RF Patient Comments: 3 doses left to take Held prednisone 5 mg tablet 5 mg PO DAILY Hold Instructions: Resume on 07/14/25. Resume after 60mg prednisone complete Discontinued ibuprofen 600 mg tablet 600 mg PO TID PRN (Reason: pain) Qty: 30 0RF Date of admission: 07/09/25 13:00 Primary Care Provider: UNKNOWN,DOCTOR Admitting Provider: Jorge Estrada Attending physician on admission: Maisha Golden Condition: Stable Quality VTE Prophylaxis VTE prophylaxis: pharmacologic ordered Hospitalist MIPS Heart Failure (Exclusion) Patient has history of Heart Transplant or Left Ventricular Assistive Device?: No IF YES, STOP HERE Heart Failure (Qualifier) Patient has current or prior documentation of LVEF less than or equal to 40%, or mod/servere depressed LVSF?: No IF NO, STOP HERE
== END 2025-07-12 12:48 | disposition home or self-care (01) | DRG 388 ==
LOC: ANHED 11:37 → ANH3MEDSUR 12:17
PROVIDERS: Emergency Medicine; Student in an Organized Health Care Education/Training Program; Admitting Provider General Practice; Emergency Provider Student in an Organized Health Care Education/Training Program; Visit Provider Nurse Practitioner Family
DX: K56.699 Other intestinal obstruction unspecified as to partial versus complete obstruction (principal); J18.9 Pneumonia, unspecified organism; N17.9 Acute kidney failure, unspecified; E87.1 Hypo-osmolality and hyponatremia; J84.9 Interstitial pulmonary disease, unspecified; T40.2X5A Adverse effect of other opioids, initial encounter; S22.41XD Multiple fractures of ribs, right side, subsequent encounter for fracture with routine healing; K21.9 Gastro-esophageal reflux disease without esophagitis; W01.190D Fall on same level from slipping, tripping and stumbling with subsequent striking against furniture, subsequent encounter; Z85.821 Personal history of Merkel cell carcinoma; Z85.828 Personal history of other malignant neoplasm of skin; Z85.72 Personal history of non-Hodgkin lymphomas; Z87.891 Personal history of nicotine dependence; S01.01XD Laceration without foreign body of scalp, subsequent encounter; Z79.891 Long term (current) use of opiate analgesic; Z79.82 Long term (current) use of aspirin; Z87.442 Personal history of urinary calculi; S42.002D Fracture of unspecified part of left clavicle, subsequent encounter for fracture with routine healing; Z79.52 Long term (current) use of systemic steroids
CPT/HCPCS: 36415; 71045; 71275; 74018; 74177; 74250; 80048; 80053; 81001; 83605; 83690; 83735; 83880; 84484; 85025; 85027; 85610; 85730; 86850; 86900; 86901; 87637; 93005; 94640; 94667; 96361; 96365; 96367; 96375; 96376; 99285; A9270; G0378; J0456; J0696; J1171; J1650; J2405; J2470; J2543; J7030; J7050; J7512; Q9967